=== PATIENT | female | born 1970 | race Caucasian/White ===

== ENCOUNTER → 2016-05-17 | Outpatient (CLI) | payer BC, OTHER ==
--- NOTE | 2016-05-17 16:19 | US ---
ULTRASOUND EXAMINATION OF the left lower extremity WITH DOPPLER HISTORY: Pain FINDINGS: Examination of the left leg was performed from the groin to the calf region. All visualized segment s including common femoral, proximal greater saphenous, superficial femoral, popliteal and calf vein s appear patent with good compressibility and augmentation. There is no evidence of deep vein throm bosis. IMPRESSION: No evidence of a DVT.
== END ==
LOC: MW.US 15:18
PROVIDERS: ATTEND Family Medicine
DX: M79.605 Pain in left leg (principal); M79.89 Other specified soft tissue disorders
CPT/HCPCS: 93971-26-LT; 93971-LT

== ENCOUNTER → 2016-06-08 | Outpatient (CLI) | payer BC, OTHER | END | disposition home or self-care (01) | LOC: MW.LAB 11:49 | PROVIDERS: ATTEND Internal Medicine | DX: R19.7 Diarrhea, unspecified (principal) | CPT/HCPCS: 82656; 83630; 87046; 87324; 87328; 87329; 87899; 89125 ==

== ENCOUNTER 2017-05-26 16:12 | Inpatient (IN) | payer BC, OTHER ==
--- NOTE | 2017-05-26 17:09 | EDM.PDOC ---
ED HPI GENERAL MEDICAL PROBLEM - General Chief Complaint: Gastrointestinal Problem Stated Complaint: INTERNAL BLEEDING Time Seen by Provider: 05/26/17 16:50 Source of Information: Reports: Patient, Family History Limitations: Reports: No Limitations - History of Present Illness INITIAL COMMENTS - FREE TEXT/NARRATIVE: HISTORY AND PHYSICAL: History of present illness: [Comes to the emergency room from [facility] in [place]. She was referred to the emergency room for complaints of dark black tarry stools and dark urine] and not feeling well for the past week. She developed low back pain yesterday, but has had pain throughout her abdomen for the past 1 week. Has had decreased appetite and weight loss over the past couple of months. No overt fever and chills but she has had alternating feelings of being warm and chills. No shortness of breath or difficulty breathing. Occasionally has a poking sensation in her mid chest. This resolves with time and massage. No runny nose earaches or sore throat. Had some nausea but no vomiting. No constipation or diarrhea. Stools have been green or black and tarry for the past several days. Quit smoking 1 week ago. Drinks 300 mL's of vodka nightly x 10 years. Cholecystectomy and EGD in 2015. 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 Indicated that he would like to see her back every 6 months to follow-up on fatty liver disease. Review of systems: As per history of present illness and below otherwise all systems reviewed and negative. Past medical history: As per history of present illness and as reviewed below otherwise noncontributory. Surgical history: As per history of present illness and as reviewed below otherwise noncontributory. Social history: No reported history of drug or alcohol abuse. Family history: As per history of present illness and as reviewed below otherwise noncontributory. Physical exam: General: Well developed female in no acute distress. Skin: Warm dry pale. HEENT: Atraumatic, normocephalic. Conjunctiva and oral mucous membranes are pale , but moist. Neck is supple, no lymphadenopathy. Lungs: Clear to auscultation, breath sounds equal bilaterally. Heart: S1S2, regular rate and rhythm. Abdomen: Bowel sounds are normoactive throughout. Abdomen is soft and somewhat rotund. She is tender over RUQ and suprapubic areas. Hepatomegaly appreciated. No CVAT. Pelvis: Stable nontender. Genitourinary: Deferred. Rectal: Deferred. Extremities: Atraumatic, no swelling or cyanosis to feet or lower legs. Neurovascular unremarkable. Neuro: Awake, alert, oriented. Motor and sensory unremarkable throughout. Exam nonfocal. Diagnostics: [CBC, CMP, UA w/ micro, amylase, lipase, abdominal ultrasound, EKG, ETOH, magnesium] Therapeutics: [1 liter LR, potassium chloride 40 mEq IV, Protonix 80mg IV, Levaquin 500mg IV] Impression: [GI bleed UTI Hypokalemia hyperbilirubinemia elevated LFTs fatty liver disease] Plan: [EKG shows normal sinus rhythm with a rate of 98. Hemoglobin 9.8. Potassium 2.9. UA is positive nitrites, + WBC's and urobilinogen >8. Elevated LFTs and bilirubin Abdominal U/S shows hepatomegaly with diffuse fatty liver. Case is discussed w/ Dr. Mendoza who agrees to accept patient for further workup and treatment. Protonix, Levaquin and KCl are started in the ER prior to transfer to the floor. ] Definitive disposition and diagnosis as appropriate pending reevaluation and review of above. Abdominal Pain Score (Numeric/FACES): 9 - Related Data Allergies Allergy/AdvReac Type Severity Reaction Status Date / Time No Known Allergies Allergy Verified 11/12/14 08:50 Home Meds: Home Meds Lansoprazole [Prevacid] 30 mg PO DAILY 06/10/14 [History] Past Medical History Other Respiratory History: Reports 30 yr history of smoking, current use 3 cigarettes per day Other Gastrointestinal History: Abdominal pain, Heartburn/GERD - Past Surgical History Other Musculoskeletal Surgeries/Procedures:: Bunionectomy Left with screws Social & Family History - Family History Family Medical History: Noncontributory - Tobacco Use Smoking Status *Q: Current Every Day Smoker Years of Tobacco use: 30 Packs/Tins Daily: 0.1 Second Hand Smoke Exposure: No - Caffeine Use Caffeine Use: Reports: None - Alcohol Use Days Per Week of Alcohol Use: 2 Number of Drinks Per Day: 3 Total Drinks Per Week: 6 - Recreational Drug Use Recreational Drug Use: No Drug Use in Last 12 Months: No ED ROS GENERAL - Review of Systems Review Of Systems: ROS reveals no pertinent complaints other than HPI. ED EXAM, GI/ABD - Physical Exam Exam: See Below Course - Vital Signs Last Recorded V/S: Last Vital Signs Temp 98.3 F 05/26/17 21:30 Pulse 93 05/26/17 21:30 Resp 16 05/26/17 21:30 BP 111/67 05/26/17 21:30 Pulse Ox 97 05/26/17 21:30 - Orders/Labs/Meds Orders: Active Orders 24 hr Category Date Time Status EKG Documentation Completion [RC] STAT Care 05/26/17 18:08 Active Abdomen Ltd [US] Stat Exams 05/26/17 18:06 Taken UA W/MICROSCOPIC [URIN] Stat Lab 05/26/17 17:30 Ordered Sodium Chloride 0.9% with KCl [Normal Saline with 40 Med 05/26/17 20:30 Active mEq KCl] 1,000 ml IV ASDIRECTED Medication Orders Potassium Chloride/Sodium Chloride (Normal Saline With 40 Meq Kcl) 1,000 mls @ 250 mls/hr IV ASDIRECTED SHAKIRA Labs: Laboratory Tests 05/26/17 05/26/17 05/26/17 Range/Units 17:25 17:25 17:25 WBC 10.27 (4.0-11.0) K/uL RBC 3.20 L (4.30-5.90) M/uL Hgb 9.8 L (12.0-16.0) g/dL Hct 30.1 L (36.0-46.0) % MCV 94.1 (80.0-98.0) fL MCH 30.6 (27.0-32.0) pg MCHC 32.6 (31.0-37.0) g/dL RDW Std Deviation 58.2 (28.0-62.0) fl RDW Coeff of [place] 17 H (11.0-15.0) % Plt Count 245 (150-400) K/uL MPV 10.30 (7.40-12.00) fL Neut % (Auto) 74.2 (48.0-80.0) % Lymph % (Auto) 18.6 (16.0-40.0) % [place] % (Auto) 6.0 (0.0-15.0) % Eos % (Auto) 0.6 (0.0-7.0) % Baso % (Auto) 0.6 (0.0-1.5) % Neut # (Auto) 7.6 H (1.4-5.7) K/uL Lymph # (Auto) 1.9 (0.6-2.4) K/uL [place] # (Auto) 0.6 (0.0-0.8) K/uL Eos # (Auto) 0.1 (0.0-0.7) K/uL Baso # (Auto) 0.1 (0.0-0.1) K/uL Nucleated RBC % 0.0 /100WBC Nucleated RBCs # 0 K/uL INR 1.42 Sodium 135 L (136-145) mmol/L Potassium 2.9 L (3.5-5.1) mmol/L Chloride 95 L (98-107) mmol/L Carbon Dioxide 27.6 (21.0-32.0) mmol/L BUN 8 (7.0-18.0) mg/dL Creatinine 0.6 (0.6-1.0) mg/dL Est Cr Clr Drug Dosing 97.95 mL/min Estimated GFR (MDRD) > 60.0 ml/min Glucose 90 (74-106) mg/dL Calcium 8.4 L (8.5-10.1) mg/dL Magnesium (1.5-2.0) mg/dL Total Bilirubin 4.9 H (0.2-1.0) mg/dL AST 225 H (15-37) IU/L ALT 35 (14-63) IU/L Alkaline Phosphatase 355 H (46-116) U/L Total Protein 7.1 (6.4-8.2) g/dL Albumin 2.8 L (3.4-5.0) g/dL Globulin 4.3 H (2.0-3.5) g/dL Albumin/Globulin Ratio 0.7 L (1.3-2.8) Amylase 23 L (25-115) U/L Lipase 176 (73-393) U/L Urine Color Urine Appearance Urine pH (5.0-8.0) Ur Specific [place] (1.001-1.035) Urine Protein (NEGATIVE) mg/dL Urine Glucose (UA) (NEGATIVE) mg/dL Urine Ketones (NEGATIVE) mg/dL Urine Occult Blood (NEGATIVE) Urine Nitrite (NEGATIVE) Urine Bilirubin (NEGATIVE) Urine Ictotest Urine Urobilinogen (<2.0) EU/dL Ur Leukocyte Esterase (NEGATIVE) Urine RBC (0-2/HPF) Urine WBC (0-5/HPF) Ur Epithelial Cells (NONE-FEW) Urine Bacteria (NEGATIVE) Urine Mucus (NONE-MOD) Ethyl Alcohol mg/dL H. pylori IgG Antibody (NEG) 05/26/17 05/26/17 05/26/17 Range/Units 17:25 17:25 17:25 WBC (4.0-11.0) K/uL RBC (4.30-5.90) M/uL Hgb (12.0-16.0) g/dL Hct (36.0-46.0) % MCV (80.0-98.0) fL MCH (27.0-32.0) pg MCHC (31.0-37.0) g/dL RDW Std Deviation (28.0-62.0) fl RDW Coeff of [place] (11.0-15.0) % Plt Count (150-400) K/uL MPV (7.40-12.00) fL Neut % (Auto) (48.0-80.0) % Lymph % (Auto) (16.0-40.0) % [place] % (Auto) (0.0-15.0) % Eos % (Auto) (0.0-7.0) % Baso % (Auto) (0.0-1.5) % Neut # (Auto) (1.4-5.7) K/uL Lymph # (Auto) (0.6-2.4) K/uL [place] # (Auto) (0.0-0.8) K/uL Eos # (Auto) (0.0-0.7) K/uL Baso # (Auto) (0.0-0.1) K/uL Nucleated RBC % /100WBC Nucleated RBCs # K/uL INR Sodium (136-145) mmol/L Potassium (3.5-5.1) mmol/L Chloride (98-107) mmol/L Carbon Dioxide (21.0-32.0) mmol/L BUN (7.0-18.0) mg/dL Creatinine (0.6-1.0) mg/dL Est Cr Clr Drug Dosing mL/min Estimated GFR (MDRD) ml/min Glucose (74-106) mg/dL Calcium (8.5-10.1) mg/dL Magnesium 1.2 L (1.5-2.0) mg/dL Total Bilirubin (0.2-1.0) mg/dL AST (15-37) IU/L ALT (14-63) IU/L Alkaline Phosphatase (46-116) U/L Total Protein (6.4-8.2) g/dL Albumin (3.4-5.0) g/dL Globulin (2.0-3.5) g/dL Albumin/Globulin Ratio (1.3-2.8) Amylase (25-115) U/L Lipase (73-393) U/L Urine Color Urine Appearance Urine pH (5.0-8.0) Ur Specific [place] (1.001-1.035) Urine Protein (NEGATIVE) mg/dL Urine Glucose (UA) (NEGATIVE) mg/dL Urine Ketones (NEGATIVE) mg/dL Urine Occult Blood (NEGATIVE) Urine Nitrite (NEGATIVE) Urine Bilirubin (NEGATIVE) Urine Ictotest Urine Urobilinogen (<2.0) EU/dL Ur Leukocyte Esterase (NEGATIVE) Urine RBC (0-2/HPF) Urine WBC (0-5/HPF) Ur Epithelial Cells (NONE-FEW) Urine Bacteria (NEGATIVE) Urine Mucus (NONE-MOD) Ethyl Alcohol <3 mg/dL H. pylori IgG Antibody NEGATIVE (NEG) 05/26/17 Range/Units 17:30 WBC (4.0-11.0) K/uL RBC (4.30-5.90) M/uL Hgb (12.0-16.0) g/dL Hct (36.0-46.0) % MCV (80.0-98.0) fL MCH (27.0-32.0) pg MCHC (31.0-37.0) g/dL RDW Std Deviation (28.0-62.0) fl RDW Coeff of [place] (11.0-15.0) % Plt Count (150-400) K/uL MPV (7.40-12.00) fL Neut % (Auto) (48.0-80.0) % Lymph % (Auto) (16.0-40.0) % [place] % (Auto) (0.0-15.0) % Eos % (Auto) (0.0-7.0) % Baso % (Auto) (0.0-1.5) % Neut # (Auto) (1.4-5.7) K/uL Lymph # (Auto) (0.6-2.4) K/uL [place] # (Auto) (0.0-0.8) K/uL Eos # (Auto) (0.0-0.7) K/uL Baso # (Auto) (0.0-0.1) K/uL Nucleated RBC % /100WBC Nucleated RBCs # K/uL INR Sodium (136-145) mmol/L Potassium (3.5-5.1) mmol/L Chloride (98-107) mmol/L Carbon Dioxide (21.0-32.0) mmol/L BUN (7.0-18.0) mg/dL Creatinine (0.6-1.0) mg/dL Est Cr Clr Drug Dosing mL/min Estimated GFR (MDRD) ml/min Glucose (74-106) mg/dL Calcium (8.5-10.1) mg/dL Magnesium (1.5-2.0) mg/dL Total Bilirubin (0.2-1.0) mg/dL AST (15-37) IU/L ALT (14-63) IU/L Alkaline Phosphatase (46-116) U/L Total Protein (6.4-8.2) g/dL Albumin (3.4-5.0) g/dL Globulin (2.0-3.5) g/dL Albumin/Globulin Ratio (1.3-2.8) Amylase (25-115) U/L Lipase (73-393) U/L Urine Color ORANGE Urine Appearance CLEAR Urine pH 5.5 (5.0-8.0) Ur Specific [place] 1.025 (1.001-1.035) Urine Protein 30 (NEGATIVE) mg/dL Urine Glucose (UA) NEGATIVE (NEGATIVE) mg/dL Urine Ketones 40 H (NEGATIVE) mg/dL Urine Occult Blood LARGE H (NEGATIVE) Urine Nitrite POSITIVE H (NEGATIVE) Urine Bilirubin LARGE H (NEGATIVE) Urine Ictotest POSITIVE Urine Urobilinogen >=8.0 H (<2.0) EU/dL Ur Leukocyte Esterase SMALL (NEGATIVE) Urine RBC 3-6 (0-2/HPF) Urine WBC 6-8 (0-5/HPF) Ur Epithelial Cells MODERATE (NONE-FEW) Urine Bacteria 1+ H (NEGATIVE) Urine Mucus MODERATE (NONE-MOD) Ethyl Alcohol mg/dL H. pylori IgG Antibody (NEG) Meds: Medications Generic Name Dose Route Start Last Admin Trade Name Freq PRN Reason Stop Dose Admin Potassium Chloride/Sodium Chloride 1,000 mls @ 250 mls/hr 05/26/17 20:30 Normal Saline With 40 Meq Kcl IV ASDIRECTED SHAKIRA Discontinued Medications Generic Name Dose Route Start Last Admin Trade Name Freq PRN Reason Stop Dose Admin Lactated Ringer's 1,000 mls @ 999 mls/hr 05/26/17 18:07 05/26/17 18:50 Ringers, Lactated IV 05/26/17 19:07 999 mls/hr .BOLUS ONE Administration Levofloxacin/Dextrose 500 mg/ 100 mls @ 100 mls/hr 05/26/17 20:37 05/26/17 21 :26 Premix IV 05/26/17 21:36 100 mls/hr ONETIME ONE Administration Pantoprazole Sodium 80 mg 05/26/17 20:20 05/26/17 20:31 Protonix Iv IVPUSH 05/26/17 20:21 80 mg .BOLUS ONE Administration Potassium Chloride 80 meq 05/26/17 20:14 05/26/17 20:36 Klor-Con M20 PO 05/26/17 20:15 Not Given ONETIME ONE Departure - Departure Time of Disposition: 21:00 Disposition: Admitted As Inpatient 67 Condition: Fair Clinical Impression: GI bleeding, UTI (urinary tract infection), Hypokalemia - Discharge Information - My Orders Last 24 Hours: My Active Orders 05/26/17 17:30 UA W/MICROSCOPIC [URIN] Stat 05/26/17 18:06 Abdomen Ltd [US] Stat 05/26/17 18:08 EKG Documentation Completion [RC] STAT 05/26/17 20:30 Sodium Chloride 0.9% with KCl [Normal Saline with 40 mEq KCl] 1,000 ml IV ASDIRECTED - Assessment/Plan Last 24 Hours: My Active Orders 05/26/17 17:30 UA W/MICROSCOPIC [URIN] Stat 05/26/17 18:06 Abdomen Ltd [US] Stat 05/26/17 18:08 EKG Documentation Completion [RC] STAT 05/26/17 20:30 Sodium Chloride 0.9% with KCl [Normal Saline with 40 mEq KCl] 1,000 ml IV ASDIRECTED
[2017-05-26 17:54] LABS: CHLORIDE,CL 95 mmol/L (98-107); SODIUM,NA 135 mmol/L (136-145)
[2017-05-26] MEDS ORDERED: Lactated Ringers 1,000 ML IV ONE (18:07)
[2017-05-26] MEDS ORDERED: Potassium Chloride 20 MEQ Tab.ER PO ONE (20:14)
[2017-05-26] MEDS ORDERED: Pantoprazole 40 MG Vial IVPUSH ONE (20:20)
[2017-05-26] MEDS ORDERED: Sodium Chloride 0.9% with KCl 1,000 ML IV SCH ×2 (20:30→22:30)
[2017-05-26] MEDS ORDERED: Levofloxacin/Dextrose 5%-Water 500 MG in Premix Bag 1 BAG IV ONE (20:37)
[2017-05-26] MEDS ORDERED: Magnesium Sulfate/Water 2 GM in Premix Bag 1 BAG IV ONE (22:16)
[2017-05-26] MEDS ORDERED: Ondansetron 4 MG/2 ML SDV IVPUSH PRN (22:32)
[2017-05-26] MEDS ORDERED: LORazepam 2 MG/ML SDV IVPUSH PRN (22:33)
--- NOTE | 2017-05-26 22:37 | PCM.HP ---
H&P History of Present Illness - General Admit Problem/Dx: Admission Diagnosis/Problem Admission Diagnosis/Problem GI bleed not requiring more than 4 units of blood in 24 hours, ICU, or surgery - History of Present Illness Initial Comments - Free Text/Narative: 46 yo female with pmh of alcoholism and fatty liver disease who presents with one week history of epigastric abdominal pain, and three day history of dark tarry stools. PAtient denies any dizziness, shortness of breath, or fevers. Patient reports drinking 4 glasses of vodka a day. Patient reports nausea and vomiting but denies any hematemesis. 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: - Past Surgical History Other Musculoskeletal Surgeries/Procedures:: Bunionectomy Left with screws Social & Family History - Family History Family Medical History: Noncontributory - Tobacco Use Smoking Status *Q: Current Every Day Smoker Years of Tobacco use: 30 Packs/Tins Daily: 0.1 Used Tobacco, but Quit: No Second Hand Smoke Exposure: No - Caffeine Use Caffeine Use: Reports: None - Alcohol Use Days Per Week of Alcohol Use: 2 Number of Drinks Per Day: 3 Total Drinks Per Week: 6 Date of Last Drink: 05/25/17 Time of Last Drink: 20:30 - Recreational Drug Use Recreational Drug Use: No Drug Use in Last 12 Months: No H&P Review of Systems - Review of Systems: Review Of Systems: ROS reveals no pertinent complaints other than HPI. Exam - Exam Exam: See Below - Vital Signs Vital Signs: Last Vital Signs Temp 36.8 C 05/26/17 21:30 Pulse 93 05/26/17 21:30 Resp 16 05/26/17 21:30 BP 111/67 05/26/17 21:30 Pulse Ox 97 05/26/17 21:30 Weight: 53.025 kg - Exam General: Alert, Oriented HEENT: Mucosa Moist & [place] Neck: Supple Lungs: Clear to Auscultation, Normal Respiratory Effort Cardiovascular: Regular Rate, Regular Rhythm GI/Abdominal Exam: Normal Bowel Sounds, Soft, Non-Tender, No Distention Extremities: Non-Tender, No Pedal Edema Skin: Warm, Dry, Intact Neurological: Strength Equal Bilateral, Normal Speech, Normal Tone, Sensation Intact. No: Focal Deficit - Patient Data Lab Results Last 24 hrs: Laboratory Results - last 24 hr 05/26/17 05/26/17 05/26/17 Range/Units 17:25 17:25 17:25 WBC 10.27 (4.0-11.0) K/uL RBC 3.20 L (4.30-5.90) M/uL Hgb 9.8 L (12.0-16.0) g/dL Hct 30.1 L (36.0-46.0) % MCV 94.1 (80.0-98.0) fL MCH 30.6 (27.0-32.0) pg MCHC 32.6 (31.0-37.0) g/dL RDW Std Deviation 58.2 (28.0-62.0) fl RDW Coeff of [place] 17 H (11.0-15.0) % Plt Count 245 (150-400) K/uL MPV 10.30 (7.40-12.00) fL Neut % (Auto) 74.2 (48.0-80.0) % Lymph % (Auto) 18.6 (16.0-40.0) % [place] % (Auto) 6.0 (0.0-15.0) % Eos % (Auto) 0.6 (0.0-7.0) % Baso % (Auto) 0.6 (0.0-1.5) % Neut # (Auto) 7.6 H (1.4-5.7) K/uL Lymph # (Auto) 1.9 (0.6-2.4) K/uL [place] # (Auto) 0.6 (0.0-0.8) K/uL Eos # (Auto) 0.1 (0.0-0.7) K/uL Baso # (Auto) 0.1 (0.0-0.1) K/uL Nucleated RBC % 0.0 /100WBC Nucleated RBCs # 0 K/uL INR 1.42 Sodium 135 L (136-145) mmol/L Potassium 2.9 L (3.5-5.1) mmol/L Chloride 95 L (98-107) mmol/L Carbon Dioxide 27.6 (21.0-32.0) mmol/L BUN 8 (7.0-18.0) mg/dL Creatinine 0.6 (0.6-1.0) mg/dL Est Cr Clr Drug Dosing 97.95 mL/min Estimated GFR (MDRD) > 60.0 ml/min Glucose 90 (74-106) mg/dL Calcium 8.4 L (8.5-10.1) mg/dL Magnesium (1.5-2.0) mg/dL Total Bilirubin 4.9 H (0.2-1.0) mg/dL AST 225 H (15-37) IU/L ALT 35 (14-63) IU/L Alkaline Phosphatase 355 H (46-116) U/L Total Protein 7.1 (6.4-8.2) g/dL Albumin 2.8 L (3.4-5.0) g/dL Globulin 4.3 H (2.0-3.5) g/dL Albumin/Globulin Ratio 0.7 L (1.3-2.8) Amylase 23 L (25-115) U/L Lipase 176 (73-393) U/L Urine Color Urine Appearance Urine pH (5.0-8.0) Ur Specific [place] (1.001-1.035) Urine Protein (NEGATIVE) mg/dL Urine Glucose (UA) (NEGATIVE) mg/dL Urine Ketones (NEGATIVE) mg/dL Urine Occult Blood (NEGATIVE) Urine Nitrite (NEGATIVE) Urine Bilirubin (NEGATIVE) Urine Ictotest Urine Urobilinogen (<2.0) EU/dL Ur Leukocyte Esterase (NEGATIVE) Urine RBC (0-2/HPF) Urine WBC (0-5/HPF) Ur Epithelial Cells (NONE-FEW) Urine Bacteria (NEGATIVE) Urine Mucus (NONE-MOD) Ethyl Alcohol mg/dL H. pylori IgG Antibody (NEG) 05/26/17 05/26/17 05/26/17 Range/Units 17:25 17:25 17:25 WBC (4.0-11.0) K/uL RBC (4.30-5.90) M/uL Hgb (12.0-16.0) g/dL Hct (36.0-46.0) % MCV (80.0-98.0) fL MCH (27.0-32.0) pg MCHC (31.0-37.0) g/dL RDW Std Deviation (28.0-62.0) fl RDW Coeff of [place] (11.0-15.0) % Plt Count (150-400) K/uL MPV (7.40-12.00) fL Neut % (Auto) (48.0-80.0) % Lymph % (Auto) (16.0-40.0) % [place] % (Auto) (0.0-15.0) % Eos % (Auto) (0.0-7.0) % Baso % (Auto) (0.0-1.5) % Neut # (Auto) (1.4-5.7) K/uL Lymph # (Auto) (0.6-2.4) K/uL [place] # (Auto) (0.0-0.8) K/uL Eos # (Auto) (0.0-0.7) K/uL Baso # (Auto) (0.0-0.1) K/uL Nucleated RBC % /100WBC Nucleated RBCs # K/uL INR Sodium (136-145) mmol/L Potassium (3.5-5.1) mmol/L Chloride (98-107) mmol/L Carbon Dioxide (21.0-32.0) mmol/L BUN (7.0-18.0) mg/dL Creatinine (0.6-1.0) mg/dL Est Cr Clr Drug Dosing mL/min Estimated GFR (MDRD) ml/min Glucose (74-106) mg/dL Calcium (8.5-10.1) mg/dL Magnesium 1.2 L (1.5-2.0) mg/dL Total Bilirubin (0.2-1.0) mg/dL AST (15-37) IU/L ALT (14-63) IU/L Alkaline Phosphatase (46-116) U/L Total Protein (6.4-8.2) g/dL Albumin (3.4-5.0) g/dL Globulin (2.0-3.5) g/dL Albumin/Globulin Ratio (1.3-2.8) Amylase (25-115) U/L Lipase (73-393) U/L Urine Color Urine Appearance Urine pH (5.0-8.0) Ur Specific [place] (1.001-1.035) Urine Protein (NEGATIVE) mg/dL Urine Glucose (UA) (NEGATIVE) mg/dL Urine Ketones (NEGATIVE) mg/dL Urine Occult Blood (NEGATIVE) Urine Nitrite (NEGATIVE) Urine Bilirubin (NEGATIVE) Urine Ictotest Urine Urobilinogen (<2.0) EU/dL Ur Leukocyte Esterase (NEGATIVE) Urine RBC (0-2/HPF) Urine WBC (0-5/HPF) Ur Epithelial Cells (NONE-FEW) Urine Bacteria (NEGATIVE) Urine Mucus (NONE-MOD) Ethyl Alcohol <3 mg/dL H. pylori IgG Antibody NEGATIVE (NEG) 05/26/17 Range/Units 17:30 WBC (4.0-11.0) K/uL RBC (4.30-5.90) M/uL Hgb (12.0-16.0) g/dL Hct (36.0-46.0) % MCV (80.0-98.0) fL MCH (27.0-32.0) pg MCHC (31.0-37.0) g/dL RDW Std Deviation (28.0-62.0) fl RDW Coeff of [place] (11.0-15.0) % Plt Count (150-400) K/uL MPV (7.40-12.00) fL Neut % (Auto) (48.0-80.0) % Lymph % (Auto) (16.0-40.0) % [place] % (Auto) (0.0-15.0) % Eos % (Auto) (0.0-7.0) % Baso % (Auto) (0.0-1.5) % Neut # (Auto) (1.4-5.7) K/uL Lymph # (Auto) (0.6-2.4) K/uL [place] # (Auto) (0.0-0.8) K/uL Eos # (Auto) (0.0-0.7) K/uL Baso # (Auto) (0.0-0.1) K/uL Nucleated RBC % /100WBC Nucleated RBCs # K/uL INR Sodium (136-145) mmol/L Potassium (3.5-5.1) mmol/L Chloride (98-107) mmol/L Carbon Dioxide (21.0-32.0) mmol/L BUN (7.0-18.0) mg/dL Creatinine (0.6-1.0) mg/dL Est Cr Clr Drug Dosing mL/min Estimated GFR (MDRD) ml/min Glucose (74-106) mg/dL Calcium (8.5-10.1) mg/dL Magnesium (1.5-2.0) mg/dL Total Bilirubin (0.2-1.0) mg/dL AST (15-37) IU/L ALT (14-63) IU/L Alkaline Phosphatase (46-116) U/L Total Protein (6.4-8.2) g/dL Albumin (3.4-5.0) g/dL Globulin (2.0-3.5) g/dL Albumin/Globulin Ratio (1.3-2.8) Amylase (25-115) U/L Lipase (73-393) U/L Urine Color ORANGE Urine Appearance CLEAR Urine pH 5.5 (5.0-8.0) Ur Specific [place] 1.025 (1.001-1.035) Urine Protein 30 (NEGATIVE) mg/dL Urine Glucose (UA) NEGATIVE (NEGATIVE) mg/dL Urine Ketones 40 H (NEGATIVE) mg/dL Urine Occult Blood LARGE H (NEGATIVE) Urine Nitrite POSITIVE H (NEGATIVE) Urine Bilirubin LARGE H (NEGATIVE) Urine Ictotest POSITIVE Urine Urobilinogen >=8.0 H (<2.0) EU/dL Ur Leukocyte Esterase SMALL (NEGATIVE) Urine RBC 3-6 (0-2/HPF) Urine WBC 6-8 (0-5/HPF) Ur Epithelial Cells MODERATE (NONE-FEW) Urine Bacteria 1+ H (NEGATIVE) Urine Mucus MODERATE (NONE-MOD) Ethyl Alcohol mg/dL H. pylori IgG Antibody (NEG) Result Diagrams: 05/28/17 05:57 05/28/17 05:57 Problem List Initiated/Reviewed/Updated: Yes Orders Last 24hrs: Active Orders 24 hr Category Date Time Status Patient Status [ADT] Stat ADT 05/26/17 20:37 Active EKG Documentation Completion [RC] STAT Care 05/26/17 18:08 Active Oxygen Therapy [RC] PRN Care 05/26/17 22:32 Ordered VTE/DVT Education [RC] PER UNIT ROUTINE Care 05/26/17 22:32 Ordered Vital Signs [RC] Q4H Care 05/26/17 22:32 Ordered Nothing per Oral Now Diet [DIET] Diet 05/26/17 Breakfast Ordered Abdomen Ltd [US] Stat Exams 05/26/17 18:06 Taken CBC W/O DIFF,HEMOGRAM [HEME] AM Lab 05/27/17 05:11 Ordered CBC W/O DIFF,HEMOGRAM [HEME] AM Lab 05/28/17 05:11 Ordered CBC W/O DIFF,HEMOGRAM [HEME] AM Lab 05/29/17 05:11 Ordered COMPREHENSIVE METABOLIC PN,CMP [CHEM] AM Lab 05/27/17 05:11 Ordered COMPREHENSIVE METABOLIC PN,CMP [CHEM] AM Lab 05/28/17 05:11 Ordered COMPREHENSIVE METABOLIC PN,CMP [CHEM] AM Lab 05/29/17 05:11 Ordered INR,PT,PROTHROMBIN TIME [COAG] AM Lab 05/27/17 05:11 Ordered INR,PT,PROTHROMBIN TIME [COAG] AM Lab 05/28/17 05:11 Ordered INR,PT,PROTHROMBIN TIME [COAG] AM Lab 05/29/17 05:11 Ordered UA W/MICROSCOPIC [URIN] Stat Lab 05/26/17 17:30 Ordered Folic Acid Med 05/26/17 22:45 Ordered 1 mg SUBCUT DAILY LORazepam [Ativan] Med 05/26/17 22:33 Ordered See Protocol IVPUSH Q4H PRN Magnesium Sulfate/Water [Magnesium Sulfate 2 GM in Med 05/26/17 22:16 Ordered Water 50 ML] 2 gm Premix Bag 1 bag IV ONETIME Ondansetron [Zofran] Med 05/26/17 22:32 Ordered 4 mg IVPUSH Q4H PRN Sodium Chloride 0.9% with KCl 40 mEq @ Enter Rate (1000 Med 05/26/17 22:30 Ordered mL) Sodium Chloride 0.9% with KCl [Normal Saline with 40 mEq KCl] 1,000 ml IV ASDIRECTED Sodium Chloride 0.9% with KCl [Normal Saline with 40 Med 05/26/17 20:30 Active mEq KCl] 1,000 ml IV ASDIRECTED Thiamine [Vitamin B-1] Med 05/26/17 22:45 Ordered 100 mg IV DAILY Sequential Compression Device [OM.PC] Per Unit Routine Oth 05/26/17 22:33 Ordered Resuscitation Status Routine Resus Stat 05/26/17 22:32 Ordered Medication Orders Folic Acid (Folic Acid) 1 mg SUBCUT DAILY [facility], [facility] Potassium Chloride/Sodium Chloride (Normal Saline With 40 Meq Kcl) 1,000 mls @ 250 mls/hr IV ASDIRECTED SHAKIRA Magnesium Sulfate 2 gm/ Premix 50 mls @ 50 mls/hr IV ONETIME ONE Stop: 05/26/17 23:15 Potassium Chloride/Sodium Chloride (Normal Saline With 40 Meq Kcl) 1,000 mls @ 150 mls/hr IV ASDIRECTED SHAKIRA Stop: 05/27/17 05:09 Lorazepam (Ativan) 0 mg IVPUSH Q4H PRN; Protocol PRN Reason: Agitation Ondansetron HCl (Zofran) 4 mg IVPUSH Q4H PRN PRN Reason: Nausea Thiamine HCl (Vitamin B-1) 100 mg IV DAILY [facility] Assessment/Plan Comment:: 46 yo female admitted due to concerns of possible acute GI bleed, and alcohol abuse with withdrawal. Will place on protonix, trend Hgb and give Ativan per [facility] protocol.
[2017-05-26] MEDS: Folic Acid 50 MG/10 ML MDV SUBCUT SCH (22:45)
[2017-05-26] MEDS: Thiamine 200 MG/2 ML MDV IV SCH (22:49)
[2017-05-27 05:41] LABS: CHLORIDE,CL 101 mmol/L (98-107); SODIUM,NA 136 mmol/L (136-145)
[2017-05-27] MEDS: Pantoprazole 40 MG Vial IVPUSH SCH ×2 (08:16→20:24)
[2017-05-27] MEDS: Thiamine 200 MG/2 ML MDV IV SCH (08:16)
[2017-05-27] MEDS: Folic Acid 50 MG/10 ML MDV SUBCUT SCH (08:17)
[2017-05-27] MEDS: Lactated Ringers 1,000 ML IV SCH ×2 (11:59→20:27)
--- NOTE | 2017-05-27 14:21 | US ---
EXAM DATE: 05/26/17 PATIENT'S AGE: 46 Patient: GEORGINA JAIMES Facility: [place], [place] Site . Site : 1970 Study: US Abdomen Right RUQ-05/26/2017 8:06:48 PM Ordering Physician: Doctor Stanley Final Report: INDICATION: Right upper quadrant pain TECHNIQUE: Ultrasound abdomen limited. COMPARISON: None FINDINGS: Gallbladder: History of cholecystectomy Common bile duct: 5 mm. Liver: Hepatomegaly with diffuse fatty infiltration of the liver. Large echogenic focus right lobe of the liver may represent focal fatty infiltration versus mass. The kidney: 10.4 centimeters. No masses, hydronephrosis or calculi. Miscellaneous: Trace ascites. IMPRESSION: Hepatomegaly. Diffuse fatty infiltration of the liver. Focal patchy echogenic focus right lobe of the liver versus hepatic mass. CT scan may be helpful to better characterize on a nonemergent basis. History of cholecystectomy. Trace ascites. Dictated by Reggie Umana MD @ 05/26/2017 8:13:30 PM Dictated by: Reggie Umana MD @ 05/26/2017 20:13:57 (Electronic Signature) Report Signed by Proxy. EMILY
--- NOTE | 2017-05-27 14:22 | PCM.SN ---
- Free Text/Narrative Note: gib, will initiate gib protocol; 2 large bore iv access, strict in and out; h/h q 8; inh of 1.45, may consider ffp if clinically active bleeding; avoid lovenox or anticoagulation; may benefit from endoscopy; will follow with you; cx dictated [id number]
--- NOTE | 2017-05-27 15:10 | PCM.PN ---
- General Info Date of Service: 05/27/17 Subjective Update: Patient is stable, still having some mild abdominal pain but does not feel nauseous as she did previously. Patient is nothing by mouth. Vital signs are stable. - Patient Data Vitals - Most Recent: Last Vital Signs Temp 37.2 C 05/27/17 08:00 Pulse 94 05/27/17 08:00 Resp 16 05/27/17 08:00 BP 99/68 05/27/17 08:00 Pulse Ox 96 05/27/17 08:00 Weight - Most Recent: 53.025 kg I&O - Last 24 Hours: Intake & Output 05/27/17 05/27/17 05/27/17 06:59 14:59 22:59 Intake Total 2060 Output Total 300 Balance 1760 Lab Results Last 24 Hours: Laboratory Results - last 24 hr 05/26/17 05/26/17 05/26/17 Range/Units 17:25 17:25 17:25 WBC 10.27 (4.0-11.0) K/uL RBC 3.20 L (4.30-5.90) M/uL Hgb 9.8 L (12.0-16.0) g/dL Hct 30.1 L (36.0-46.0) % MCV 94.1 (80.0-98.0) fL MCH 30.6 (27.0-32.0) pg MCHC 32.6 (31.0-37.0) g/dL RDW Std Deviation 58.2 (28.0-62.0) fl RDW Coeff of [place] 17 H (11.0-15.0) % Plt Count 245 (150-400) K/uL MPV 10.30 (7.40-12.00) fL Neut % (Auto) 74.2 (48.0-80.0) % Lymph % (Auto) 18.6 (16.0-40.0) % [place] % (Auto) 6.0 (0.0-15.0) % Eos % (Auto) 0.6 (0.0-7.0) % Baso % (Auto) 0.6 (0.0-1.5) % Neut # (Auto) 7.6 H (1.4-5.7) K/uL Lymph # (Auto) 1.9 (0.6-2.4) K/uL [place] # (Auto) 0.6 (0.0-0.8) K/uL Eos # (Auto) 0.1 (0.0-0.7) K/uL Baso # (Auto) 0.1 (0.0-0.1) K/uL Nucleated RBC % 0.0 /100WBC Nucleated RBCs # 0 K/uL INR 1.42 Sodium 135 L (136-145) mmol/L Potassium 2.9 L (3.5-5.1) mmol/L Chloride 95 L (98-107) mmol/L Carbon Dioxide 27.6 (21.0-32.0) mmol/L BUN 8 (7.0-18.0) mg/dL Creatinine 0.6 (0.6-1.0) mg/dL Est Cr Clr Drug Dosing 97.95 mL/min Estimated GFR (MDRD) > 60.0 ml/min Glucose 90 (74-106) mg/dL Calcium 8.4 L (8.5-10.1) mg/dL Phosphorus (2.6-4.7) mg/dL Magnesium (1.5-2.0) mg/dL Total Bilirubin 4.9 H (0.2-1.0) mg/dL AST 225 H (15-37) IU/L ALT 35 (14-63) IU/L Alkaline Phosphatase 355 H (46-116) U/L Total Protein 7.1 (6.4-8.2) g/dL Albumin 2.8 L (3.4-5.0) g/dL Globulin 4.3 H (2.0-3.5) g/dL Albumin/Globulin Ratio 0.7 L (1.3-2.8) Amylase 23 L (25-115) U/L Lipase 176 (73-393) U/L Urine Color Urine Appearance Urine pH (5.0-8.0) Ur Specific [place] (1.001-1.035) Urine Protein (NEGATIVE) mg/dL Urine Glucose (UA) (NEGATIVE) mg/dL Urine Ketones (NEGATIVE) mg/dL Urine Occult Blood (NEGATIVE) Urine Nitrite (NEGATIVE) Urine Bilirubin (NEGATIVE) Urine Ictotest Urine Urobilinogen (<2.0) EU/dL Ur Leukocyte Esterase (NEGATIVE) Urine RBC (0-2/HPF) Urine WBC (0-5/HPF) Ur Epithelial Cells (NONE-FEW) Urine Bacteria (NEGATIVE) Urine Mucus (NONE-MOD) Ethyl Alcohol mg/dL H. pylori IgG Antibody (NEG) 05/26/17 05/26/17 05/26/17 Range/Units 17:25 17:25 17:25 WBC (4.0-11.0) K/uL RBC (4.30-5.90) M/uL Hgb (12.0-16.0) g/dL Hct (36.0-46.0) % MCV (80.0-98.0) fL MCH (27.0-32.0) pg MCHC (31.0-37.0) g/dL RDW Std Deviation (28.0-62.0) fl RDW Coeff of [place] (11.0-15.0) % Plt Count (150-400) K/uL MPV (7.40-12.00) fL Neut % (Auto) (48.0-80.0) % Lymph % (Auto) (16.0-40.0) % [place] % (Auto) (0.0-15.0) % Eos % (Auto) (0.0-7.0) % Baso % (Auto) (0.0-1.5) % Neut # (Auto) (1.4-5.7) K/uL Lymph # (Auto) (0.6-2.4) K/uL [place] # (Auto) (0.0-0.8) K/uL Eos # (Auto) (0.0-0.7) K/uL Baso # (Auto) (0.0-0.1) K/uL Nucleated RBC % /100WBC Nucleated RBCs # K/uL INR Sodium (136-145) mmol/L Potassium (3.5-5.1) mmol/L Chloride (98-107) mmol/L Carbon Dioxide (21.0-32.0) mmol/L BUN (7.0-18.0) mg/dL Creatinine (0.6-1.0) mg/dL Est Cr Clr Drug Dosing mL/min Estimated GFR (MDRD) ml/min Glucose (74-106) mg/dL Calcium (8.5-10.1) mg/dL Phosphorus (2.6-4.7) mg/dL Magnesium 1.2 L (1.5-2.0) mg/dL Total Bilirubin (0.2-1.0) mg/dL AST (15-37) IU/L ALT (14-63) IU/L Alkaline Phosphatase (46-116) U/L Total Protein (6.4-8.2) g/dL Albumin (3.4-5.0) g/dL Globulin (2.0-3.5) g/dL Albumin/Globulin Ratio (1.3-2.8) Amylase (25-115) U/L Lipase (73-393) U/L Urine Color Urine Appearance Urine pH (5.0-8.0) Ur Specific [place] (1.001-1.035) Urine Protein (NEGATIVE) mg/dL Urine Glucose (UA) (NEGATIVE) mg/dL Urine Ketones (NEGATIVE) mg/dL Urine Occult Blood (NEGATIVE) Urine Nitrite (NEGATIVE) Urine Bilirubin (NEGATIVE) Urine Ictotest Urine Urobilinogen (<2.0) EU/dL Ur Leukocyte Esterase (NEGATIVE) Urine RBC (0-2/HPF) Urine WBC (0-5/HPF) Ur Epithelial Cells (NONE-FEW) Urine Bacteria (NEGATIVE) Urine Mucus (NONE-MOD) Ethyl Alcohol <3 mg/dL H. pylori IgG Antibody NEGATIVE (NEG) 05/26/17 05/27/17 05/27/17 Range/Units 17:30 04:40 04:40 WBC 7.54 (4.0-11.0) K/uL RBC 2.77 L (4.30-5.90) M/uL Hgb 8.6 L (12.0-16.0) g/dL Hct 26.2 L (36.0-46.0) % MCV 94.6 (80.0-98.0) fL MCH 31.0 (27.0-32.0) pg MCHC 32.8 (31.0-37.0) g/dL RDW Std Deviation 58.3 (28.0-62.0) fl RDW Coeff of [place] 17 H (11.0-15.0) % Plt Count 208 (150-400) K/uL MPV 10.60 (7.40-12.00) fL Neut % (Auto) (48.0-80.0) % Lymph % (Auto) (16.0-40.0) % [place] % (Auto) (0.0-15.0) % Eos % (Auto) (0.0-7.0) % Baso % (Auto) (0.0-1.5) % Neut # (Auto) (1.4-5.7) K/uL Lymph # (Auto) (0.6-2.4) K/uL [place] # (Auto) (0.0-0.8) K/uL Eos # (Auto) (0.0-0.7) K/uL Baso # (Auto) (0.0-0.1) K/uL Nucleated RBC % 0.0 /100WBC Nucleated RBCs # 0 K/uL INR 1.45 Sodium (136-145) mmol/L Potassium (3.5-5.1) mmol/L Chloride (98-107) mmol/L Carbon Dioxide (21.0-32.0) mmol/L BUN (7.0-18.0) mg/dL Creatinine (0.6-1.0) mg/dL Est Cr Clr Drug Dosing mL/min Estimated GFR (MDRD) ml/min Glucose (74-106) mg/dL Calcium (8.5-10.1) mg/dL Phosphorus (2.6-4.7) mg/dL Magnesium (1.5-2.0) mg/dL Total Bilirubin (0.2-1.0) mg/dL AST (15-37) IU/L ALT (14-63) IU/L Alkaline Phosphatase (46-116) U/L Total Protein (6.4-8.2) g/dL Albumin (3.4-5.0) g/dL Globulin (2.0-3.5) g/dL Albumin/Globulin Ratio (1.3-2.8) Amylase (25-115) U/L Lipase (73-393) U/L Urine Color ORANGE Urine Appearance CLEAR Urine pH 5.5 (5.0-8.0) Ur Specific [place] 1.025 (1.001-1.035) Urine Protein 30 (NEGATIVE) mg/dL Urine Glucose (UA) NEGATIVE (NEGATIVE) mg/dL Urine Ketones 40 H (NEGATIVE) mg/dL Urine Occult Blood LARGE H (NEGATIVE) Urine Nitrite POSITIVE H (NEGATIVE) Urine Bilirubin LARGE H (NEGATIVE) Urine Ictotest POSITIVE Urine Urobilinogen >=8.0 H (<2.0) EU/dL Ur Leukocyte Esterase SMALL (NEGATIVE) Urine RBC 3-6 (0-2/HPF) Urine WBC 6-8 (0-5/HPF) Ur Epithelial Cells MODERATE (NONE-FEW) Urine Bacteria 1+ H (NEGATIVE) Urine Mucus MODERATE (NONE-MOD) Ethyl Alcohol mg/dL H. pylori IgG Antibody (NEG) 05/27/17 05/27/17 05/27/17 Range/Units 04:40 04:40 10:53 WBC (4.0-11.0) K/uL RBC (4.30-5.90) M/uL Hgb (12.0-16.0) g/dL Hct (36.0-46.0) % MCV (80.0-98.0) fL MCH (27.0-32.0) pg MCHC (31.0-37.0) g/dL RDW Std Deviation (28.0-62.0) fl RDW Coeff of [place] (11.0-15.0) % Plt Count (150-400) K/uL MPV (7.40-12.00) fL Neut % (Auto) (48.0-80.0) % Lymph % (Auto) (16.0-40.0) % [place] % (Auto) (0.0-15.0) % Eos % (Auto) (0.0-7.0) % Baso % (Auto) (0.0-1.5) % Neut # (Auto) (1.4-5.7) K/uL Lymph # (Auto) (0.6-2.4) K/uL [place] # (Auto) (0.0-0.8) K/uL Eos # (Auto) (0.0-0.7) K/uL Baso # (Auto) (0.0-0.1) K/uL Nucleated RBC % /100WBC Nucleated RBCs # K/uL INR Sodium 136 (136-145) mmol/L Potassium 4.0 (3.5-5.1) mmol/L Chloride 101 (98-107) mmol/L Carbon Dioxide 22.9 (21.0-32.0) mmol/L BUN 5 L (7.0-18.0) mg/dL Creatinine 0.5 L (0.6-1.0) mg/dL Est Cr Clr Drug Dosing 117.54 mL/min Estimated GFR (MDRD) > 60.0 ml/min Glucose 58 L (74-106) mg/dL Calcium 7.5 L (8.5-10.1) mg/dL Phosphorus 3.8 (2.6-4.7) mg/dL Magnesium 1.6 (1.5-2.0) mg/dL Total Bilirubin 4.2 H (0.2-1.0) mg/dL AST 159 H (15-37) IU/L ALT 26 (14-63) IU/L Alkaline Phosphatase 264 H (46-116) U/L Total Protein 5.6 L (6.4-8.2) g/dL Albumin 2.1 L (3.4-5.0) g/dL Globulin 3.5 (2.0-3.5) g/dL Albumin/Globulin Ratio 0.6 L (1.3-2.8) Amylase (25-115) U/L Lipase (73-393) U/L Urine Color Urine Appearance Urine pH (5.0-8.0) Ur Specific [place] (1.001-1.035) Urine Protein (NEGATIVE) mg/dL Urine Glucose (UA) (NEGATIVE) mg/dL Urine Ketones (NEGATIVE) mg/dL Urine Occult Blood (NEGATIVE) Urine Nitrite (NEGATIVE) Urine Bilirubin (NEGATIVE) Urine Ictotest Urine Urobilinogen (<2.0) EU/dL Ur Leukocyte Esterase (NEGATIVE) Urine RBC (0-2/HPF) Urine WBC (0-5/HPF) Ur Epithelial Cells (NONE-FEW) Urine Bacteria (NEGATIVE) Urine Mucus (NONE-MOD) Ethyl Alcohol mg/dL H. pylori IgG Antibody (NEG) Med Orders - Current: Current Medications Folic Acid (Folic Acid) 1 mg SUBCUT DAILY [facility] Last Admin: 05/27/17 08:17 Dose: 1 mg Levofloxacin/Dextrose 500 mg/ (Premix) 100 mls @ 100 mls/hr IV Q24H [facility] Lactated Ringer's (Ringers, Lactated) 1,000 mls @ 125 mls/hr IV ASDIRECTED [facility] Last Admin: 05/27/17 11:59 Dose: 125 mls/hr Lorazepam (Ativan) 0 mg IVPUSH Q4H PRN; Protocol PRN Reason: Agitation Ondansetron HCl (Zofran) 4 mg IVPUSH Q4H PRN PRN Reason: Nausea Pantoprazole Sodium (Protonix Iv) 40 mg IVPUSH Q12H [facility] Last Admin: 05/27/17 08:16 Dose: 40 mg Thiamine HCl (Vitamin B-1) 100 mg IV DAILY [facility] Last Admin: 05/27/17 08:16 Dose: 100 mg Discontinued Medications Lactated Ringer's (Ringers, Lactated) 1,000 mls @ 999 mls/hr IV .BOLUS ONE Stop: 05/26/17 19:07 Last Admin: 05/26/17 18:50 Dose: 999 mls/hr Potassium Chloride/Sodium Chloride (Normal Saline With 40 Meq Kcl) 1,000 mls @ 250 mls/hr IV ASDIRECTED [facility] Last Infusion: 05/27/17 01:25 Dose: Infused Levofloxacin/Dextrose 500 mg/ (Premix) 100 mls @ 100 mls/hr IV ONETIME ONE Stop: 05/26/17 21:36 Last Infusion: 05/26/17 22:30 Dose: Infused Magnesium Sulfate 2 gm/ Premix 50 mls @ 50 mls/hr IV ONETIME ONE Stop: 05/26/17 23:15 Last Infusion: 05/26/17 23:55 Dose: Infused Potassium Chloride/Sodium Chloride (Normal Saline With 40 Meq Kcl) 1,000 mls @ 150 mls/hr IV ASDIRECTED [facility] Stop: 05/27/17 05:09 Last Admin: 05/27/17 01:24 Dose: 150 mls/hr Pantoprazole Sodium (Protonix Iv) 80 mg IVPUSH .BOLUS ONE Stop: 05/26/17 20:21 Last Admin: 05/26/17 20:31 Dose: 80 mg Potassium Chloride (Klor-Con M20) 80 meq PO ONETIME ONE Stop: 05/26/17 20:15 Last Admin: 05/26/17 20:36 Dose: Not Given - Exam General: Alert, Oriented, Cooperative, Mild Distress Lungs: Clear to Auscultation, Normal Respiratory Effort Cardiovascular: Regular Rate, Regular Rhythm GI/Abdominal Exam: Tender, Abnormal Bowel Sounds Extremities: Normal Inspection, Normal Range of Motion - Problem List Review Problem List Initiated/Reviewed/Updated: Yes - My Orders Last 24 Hours: My Active Orders 05/27/17 13:00 Notify Provider Consults [RC] ASDIRECTED Consult to Physician [CONS] Routine - Plan Plan:: This is a 46-year-old female with a history of gastroesophageal reflux disease, alcoholic fatty liver disease, history of chronic alcohol use and abuse presenting with dark tarry stools as well as bright red blood per rectum likely secondary to peptic ulcer disease, other etiologies that were considered include acute alcoholic hepatitis versus esophageal varices versus acute pancreatitis. #1. Upper GI bleed likely secondary to peptic ulcer disease alcohol-induced -patient's serology for H. pylori is negative, she denies any NSAID usage -Dr. Miguel Blunt surgery has been consulted for an assessment of her possible EGD for assessment of etiology. -Continue with the Protonix drip 80 twice a day IV, patient is nothing by mouth receiving IV fluids -Although the patient does have a significant alcoholic history likely not causing these current exacerbation due to no fevers, no jaundice on physical examination, AST is not significantly elevated although it is twice the limit of a healthy, total bilirubin is not significantly elevated and WBC is not significantly elevated, pancreatitis is also been ruled out as clinical signs and symptoms for acute pancreatitis are not present, amylase and lipase are within normal limits. #2. For acute alcohol intoxication/abuse -WA protocol in place, patient has Ativan for acute withdrawals -Patient receiving thiamine 100 mg daily along with folic acid 1 g daily, continue to monitor electrolytes including magnesium as it was low in the ER, assess phosphate level to see if that is low #3. Urinary tract infection seen secondary to urinary analysis -A urine culture has been obtained, patient is on Levaquin for UTI coverage up until speciation of microbiology has been done.
--- NOTE | 2017-05-27 17:55 | CONS ---
DATE OF CONSULTATION: 05/27/2017 DATE OF : 1970 PRIMARY CARE PHYSICIAN: None PCP Consult was called, and the patient was seen shortly after. CONCERNING QUESTION: Black tarry stool. HISTORY OF PRESENT ILLNESS: The patient is a 46-year-old lady, has a history of alcohol use, complained over 4 to 5 day history of black tarry stool and sometimes with bright red blood per rectum. Denies syncope. Denied chest pain. Denied short of breath. PAST MEDICAL HISTORY: Significant for no diabetes, IN, CVA, or hypertension. PAST SURGICAL HISTORY: Appendectomy, gallbladder, EGD, and tonsil. ALLERGIES: Please refer to nursing for details. MEDICATION: Please refer to nursing for details. FAMILY HISTORY: Noncontributory. SOCIAL HISTORY: Alcohol use. PHYSICAL EXAMINATION: GENERAL: A very pleasant young lady, in no acute distress. HEENT: Normocephalic and atraumatic. Sclerae anicteric. LUNGS: Clear to auscultation. HEART: Regular rate and rhythm. ABDOMEN: Soft and nondistended. No pulsating or tender midline abdominal structure. Well-healed laparoscopic surgical scar. LABORATORY DATA: Upon consultation, H and H is 8.6 and 26, and platelet is 208. INR is 1.45. Total bilirubin is 4.2, AST and ALT of 159 and 264. BUN is 5, creatinine is 0.5. IMPRESSION: Gastrointestinal bleeding with apparently some liver disease. The patient would benefit from monitoring urine output, strict in and out, weigh the patient every morning and H and H every 8 hours. Two large-bore IV access and may benefit from FFP transfusion if any signs of active bleeding. We will follow the patient with you. KOJO / MANJIT /[id number]
[2017-05-27] MEDS ORDERED: Levofloxacin/Dextrose 5%-Water 500 MG in Premix Bag 1 BAG IV SCH (23:30)
[2017-05-28] MEDS: Lactated Ringers 1,000 ML IV SCH ×2 (05:42→14:14)
[2017-05-28 06:55] LABS: CHLORIDE,CL 100 mmol/L (98-107); SODIUM,NA 135 mmol/L (136-145)
[2017-05-28] MEDS: Pantoprazole 40 MG Vial IVPUSH SCH ×2 (06:57→19:26)
--- NOTE | 2017-05-28 10:10 | PCM.SURGPN ---
- General Info Date of Service: 05/28/17 Functional Status: Reports: Pain Controlled - Review of Systems Gastrointestinal: Reports: No Symptoms (BM this AM, brown, no black tarry stool) - Patient Data Vitals - Most Recent: Last Vital Signs Temp 98.8 F 05/28/17 07:18 Pulse 97 05/28/17 07:18 Resp 16 05/28/17 07:18 BP 101/67 05/28/17 07:18 Pulse Ox 98 05/28/17 07:18 Weight - Most Recent: 116 lb 14.4 oz I&O - Last 24 Hours: Intake & Output 05/27/17 05/28/17 05/28/17 22:59 06:59 14:59 Intake Total 460 2970 Output Total 500 1100 Balance -40 1870 Lab Results Last 24 Hrs: Laboratory Results - last 24 hr 05/27/17 05/27/17 05/28/17 Range/Units 10:53 17:00 00:35 WBC 7.47 8.05 (4.0-11.0) K/uL RBC 2.82 L 2.67 L (4.30-5.90) M/uL Hgb 8.8 L 8.4 L (12.0-16.0) g/dL Hct 27.0 L 25.9 L (36.0-46.0) % MCV 95.7 97.0 (80.0-98.0) fL MCH 31.2 31.5 (27.0-32.0) pg MCHC 32.6 32.4 (31.0-37.0) g/dL RDW Std Deviation 58.1 56.1 (28.0-62.0) fl RDW Coeff of [place] 17 H 17 H (11.0-15.0) % Plt Count 192 185 (150-400) K/uL MPV 10.00 10.70 (7.40-12.00) fL Neut % (Auto) 67.3 (48.0-80.0) % Lymph % (Auto) 23.6 (16.0-40.0) % [place] % (Auto) 6.3 (0.0-15.0) % Eos % (Auto) 2.6 (0.0-7.0) % Baso % (Auto) 0.2 (0.0-1.5) % Neut # (Auto) 5.4 (1.4-5.7) K/uL Lymph # (Auto) 1.9 (0.6-2.4) K/uL [place] # (Auto) 0.5 (0.0-0.8) K/uL Eos # (Auto) 0.2 (0.0-0.7) K/uL Baso # (Auto) 0.0 (0.0-0.1) K/uL Nucleated RBC % 0.0 /100WBC Nucleated RBCs # 0 K/uL INR Sodium (136-145) mmol/L Potassium (3.5-5.1) mmol/L Chloride (98-107) mmol/L Carbon Dioxide (21.0-32.0) mmol/L BUN (7.0-18.0) mg/dL Creatinine (0.6-1.0) mg/dL Est Cr Clr Drug Dosing mL/min Estimated GFR (MDRD) ml/min Glucose (74-106) mg/dL Calcium (8.5-10.1) mg/dL Phosphorus 3.8 (2.6-4.7) mg/dL Total Bilirubin (0.2-1.0) mg/dL AST (15-37) IU/L ALT (14-63) IU/L Alkaline Phosphatase (46-116) U/L Total Protein (6.4-8.2) g/dL Albumin (3.4-5.0) g/dL Globulin (2.0-3.5) g/dL Albumin/Globulin Ratio (1.3-2.8) 05/28/17 05/28/17 05/28/17 Range/Units 05:57 05:57 05:57 WBC 7.77 (4.0-11.0) K/uL RBC 2.84 L (4.30-5.90) M/uL Hgb 8.8 L (12.0-16.0) g/dL Hct 27.0 L (36.0-46.0) % MCV 95.1 (80.0-98.0) fL MCH 31.0 (27.0-32.0) pg MCHC 32.6 (31.0-37.0) g/dL RDW Std Deviation 57.2 (28.0-62.0) fl RDW Coeff of [place] 17 H (11.0-15.0) % Plt Count 192 (150-400) K/uL MPV 10.30 (7.40-12.00) fL Neut % (Auto) (48.0-80.0) % Lymph % (Auto) (16.0-40.0) % [place] % (Auto) (0.0-15.0) % Eos % (Auto) (0.0-7.0) % Baso % (Auto) (0.0-1.5) % Neut # (Auto) (1.4-5.7) K/uL Lymph # (Auto) (0.6-2.4) K/uL [place] # (Auto) (0.0-0.8) K/uL Eos # (Auto) (0.0-0.7) K/uL Baso # (Auto) (0.0-0.1) K/uL Nucleated RBC % 0.0 /100WBC Nucleated RBCs # 0 K/uL INR 1.58 Sodium 135 L (136-145) mmol/L Potassium 4.0 (3.5-5.1) mmol/L Chloride 100 (98-107) mmol/L Carbon Dioxide 22.6 (21.0-32.0) mmol/L BUN 3 L (7.0-18.0) mg/dL Creatinine 0.5 L (0.6-1.0) mg/dL Est Cr Clr Drug Dosing 117.54 mL/min Estimated GFR (MDRD) > 60.0 ml/min Glucose 60 L (74-106) mg/dL Calcium 7.9 L (8.5-10.1) mg/dL Phosphorus (2.6-4.7) mg/dL Total Bilirubin 4.7 H (0.2-1.0) mg/dL AST 160 H (15-37) IU/L ALT 23 (14-63) IU/L Alkaline Phosphatase 244 H (46-116) U/L Total Protein 5.4 L (6.4-8.2) g/dL Albumin 2.0 L (3.4-5.0) g/dL Globulin 3.4 (2.0-3.5) g/dL Albumin/Globulin Ratio 0.6 L (1.3-2.8) Maninder Results Last 24 Hrs: Microbiology 05/26/17 17:30 Urine Culture - Final Urine, Bladder MIXED SAUNDRA >100,000 CFU/ML Med Orders - Current: Current Medications Folic Acid (Folic Acid) 1 mg SUBCUT DAILY [facility] Last Admin: 05/27/17 08:17 Dose: 1 mg Levofloxacin/Dextrose 500 mg/ (Premix) 100 mls @ 100 mls/hr IV Q24H [facility] Last Admin: 05/27/17 23:31 Dose: 100 mls/hr Lactated Ringer's (Ringers, Lactated) 1,000 mls @ 125 [facility] Last Admin: 05/28/17 05:42 Dose: 125 mls/hr Lorazepam (Ativan) 0 mg IVPUSH Q4H PRN; Protocol PRN Reason: Agitation Ondansetron HCl (Zofran) 4 mg IVPUSH Q4H PRN PRN Reason: Nausea Pantoprazole Sodium (Protonix Iv) 40 mg IVPUSH Q12H [facility] Last Admin: 05/28/17 06:57 Dose: 40 mg Thiamine HCl (Vitamin B-1) 100 mg IV DAILY [facility] Last Admin: 05/27/17 08:16 Dose: 100 mg Discontinued Medications Lactated Ringer's (Ringers, Lactated) 1,000 mls @ 999 mls/hr IV .BOLUS ONE Stop: 05/26/17 19:07 Last Admin: 05/26/17 18:50 Dose: 999 mls/hr Potassium Chloride/Sodium Chloride (Normal Saline With 40 Meq Kcl) 1,000 mls @ 250 mls/hr IV [facility] Last Infusion: 05/27/17 01:25 Dose: Infused Levofloxacin/Dextrose 500 mg/ (Premix) 100 mls @ 100 mls/hr IV ONETIME ONE Stop: 05/26/17 21:36 Last Infusion: 05/26/17 22:30 Dose: Infused Magnesium Sulfate 2 gm/ Premix 50 mls @ 50 mls/hr IV ONETIME ONE Stop: 05/26/17 23:15 Last Infusion: 05/26/17 23:55 Dose: Infused Potassium Chloride/Sodium Chloride (Normal Saline With 40 Meq Kcl) 1,000 mls @ 150 mls/hr IV [facility] Stop: 05/27/17 05:09 Last Admin: 05/27/17 01:24 Dose: 150 mls/hr Pantoprazole Sodium (Protonix Iv) 80 mg IVPUSH .BOLUS ONE Stop: 05/26/17 20:21 Last Admin: 05/26/17 20:31 Dose: 80 mg Potassium Chloride (Klor-Con M20) 80 meq PO ONETIME ONE Stop: 05/26/17 20:15 Last Admin: 05/26/17 20:36 Dose: Not Given - Exam General: Alert, Oriented GI/Abdominal Exam: Normal Bowel Sounds, Soft (tender at epigastrium, 3 on pain scale, much better than days ago) - Problem List Review Problem List Initiated/Reviewed/Updated: Yes - My Orders Last 24 Hours: Active Orders 24 hr Category Date Time Status Notify Provider Consults [RC] ASDIRECTED Care 05/27/17 13:00 Active Consult to Physician [CONS] Routine Cons 05/27/17 13:00 Active CBC W/O DIFF,HEMOGRAM [HEME] AM Lab 05/29/17 05:11 Ordered COMPREHENSIVE METABOLIC PN,CMP [CHEM] AM Lab 05/29/17 05:11 Ordered INR,PT,PROTHROMBIN TIME [COAG] AM Lab 05/29/17 05:11 Ordered Lactated Ringers [Ringers, Lactated] 1,000 ml Med 05/27/17 11:15 Active IV ASDIRECTED Levofloxacin/Dextrose 5%-Water [Levaquin in D5W 500 MG/ Med 05/27/17 23:30 Active 100 ML] 500 mg Premix Bag 1 bag IV Q24H Medication Orders Folic Acid (Folic Acid) 1 mg SUBCUT DAILY [facility] Last Admin: 05/27/17 08:17 Dose: 1 mg Admin: 05/26/17 22:45 Dose: 1 mg Levofloxacin/Dextrose 500 mg/ (Premix) 100 mls @ 100 mls/hr IV Q24H [facility] Last Admin: 05/27/17 23:31 Dose: 100 mls/hr Lactated Ringer's (Ringers, Lactated) 1,000 mls @ 125 mls/hr IV ASDIRECTED [facility] Last Admin: 05/28/17 05:42 Dose: 125 mls/hr Infusion: 05/28/17 04:27 Dose: 125 mls/hr Admin: 05/27/17 20:27 Dose: 125 mls/hr Infusion: 05/27/17 19:59 Dose: 125 mls/hr Admin: 05/27/17 11:59 Dose: 125 mls/hr Lorazepam (Ativan) 0 mg IVPUSH Q4H PRN; Protocol PRN Reason: Agitation Ondansetron HCl (Zofran) 4 mg IVPUSH Q4H PRN PRN Reason: Nausea Pantoprazole Sodium (Protonix Iv) 40 mg IVPUSH Q12H [facility] Last Admin: 05/28/17 06:57 Dose: 40 mg Admin: 05/27/17 20:24 Dose: 40 mg Admin: 05/27/17 08:16 Dose: 40 mg Thiamine HCl (Vitamin B-1) 100 mg IV DAILY [facility] Last Admin: 05/27/17 08:16 Dose: 100 mg Admin: 05/26/17 22:49 Dose: 100 mg - Assessment Assessment (Free Text/Narrative):: lab h/h stable, no change; would start po diet, clear liquid, no advance; still jaundice at 4.7, not previous lab for comparison; clinically much better, no signs of active bleeding - Plan Plan (Free Text/Narrative):: lab h/h stable, no change; would start po diet, clear liquid, no advance; still jaundice at 4.7, not previous lab for comparison; clinically much better, no signs of active bleeding
[2017-05-28] MEDS: Folic Acid 50 MG/10 ML MDV SUBCUT SCH (10:31)
[2017-05-28] MEDS: Thiamine 200 MG/2 ML MDV IV SCH (10:33)
--- NOTE | 2017-05-28 14:31 | PCM.PN ---
- Review of Systems Systems Review Comment:: reports some mild withdrawal symptoms, no bloody stools - Patient Data Vitals - Most Recent: Last Vital Signs Temp 37.6 C 05/28/17 11:00 Pulse 87 05/28/17 11:00 Resp 16 05/28/17 11:00 BP 105/74 05/28/17 11:00 Pulse Ox 97 05/28/17 11:00 Weight - Most Recent: 54.8 kg I&O - Last 24 Hours: Intake & Output 05/27/17 05/28/17 05/28/17 22:59 06:59 14:59 Intake Total 460 2970 Output Total 500 1100 Balance -40 1870 Lab Results Last 24 Hours: Laboratory Results - last 24 hr 05/27/17 05/28/17 05/28/17 Range/Units 17:00 00:35 05:57 WBC 7.47 8.05 7.77 (4.0-11.0) K/uL RBC 2.82 L 2.67 L 2.84 L (4.30-5.90) M/uL Hgb 8.8 L 8.4 L 8.8 L (12.0-16.0) g/dL Hct 27.0 L 25.9 L 27.0 L (36.0-46.0) % MCV 95.7 97.0 95.1 (80.0-98.0) fL MCH 31.2 31.5 31.0 (27.0-32.0) pg MCHC 32.6 32.4 32.6 (31.0-37.0) g/dL RDW Std Deviation 58.1 56.1 57.2 (28.0-62.0) fl RDW Coeff of Concetta 17 H 17 H 17 H (11.0-15.0) % Plt Count 192 185 192 (150-400) K/uL MPV 10.00 10.70 10.30 (7.40-12.00) fL Neut % (Auto) 67.3 (48.0-80.0) % Lymph % (Auto) 23.6 (16.0-40.0) % [place] % (Auto) 6.3 (0.0-15.0) % Eos % (Auto) 2.6 (0.0-7.0) % Baso % (Auto) 0.2 (0.0-1.5) % Neut # (Auto) 5.4 (1.4-5.7) K/uL Lymph # (Auto) 1.9 (0.6-2.4) K/uL [place] # (Auto) 0.5 (0.0-0.8) K/uL Eos # (Auto) 0.2 (0.0-0.7) K/uL Baso # (Auto) 0.0 (0.0-0.1) K/uL Nucleated RBC % 0.0 0.0 /100WBC Nucleated RBCs # 0 0 K/uL INR Sodium (136-145) mmol/L Potassium (3.5-5.1) mmol/L Chloride (98-107) mmol/L Carbon Dioxide (21.0-32.0) mmol/L BUN (7.0-18.0) mg/dL Creatinine (0.6-1.0) mg/dL Est Cr Clr Drug Dosing mL/min Estimated GFR (MDRD) ml/min Glucose (74-106) mg/dL Calcium (8.5-10.1) mg/dL Total Bilirubin (0.2-1.0) mg/dL AST (15-37) IU/L ALT (14-63) IU/L Alkaline Phosphatase (46-116) U/L Total Protein (6.4-8.2) g/dL Albumin (3.4-5.0) g/dL Globulin (2.0-3.5) g/dL Albumin/Globulin Ratio (1.3-2.8) 05/28/17 05/28/17 Range/Units 05:57 05:57 WBC (4.0-11.0) K/uL RBC (4.30-5.90) M/uL Hgb (12.0-16.0) g/dL Hct (36.0-46.0) % MCV (80.0-98.0) fL MCH (27.0-32.0) pg MCHC (31.0-37.0) g/dL RDW Std Deviation (28.0-62.0) fl RDW Coeff of Concetta (11.0-15.0) % Plt Count (150-400) K/uL MPV (7.40-12.00) fL Neut % (Auto) (48.0-80.0) % Lymph % (Auto) (16.0-40.0) % [place] % (Auto) (0.0-15.0) % Eos % (Auto) (0.0-7.0) % Baso % (Auto) (0.0-1.5) % Neut # (Auto) (1.4-5.7) K/uL Lymph # (Auto) (0.6-2.4) K/uL [place] # (Auto) (0.0-0.8) K/uL Eos # (Auto) (0.0-0.7) K/uL Baso # (Auto) (0.0-0.1) K/uL Nucleated RBC % /100WBC Nucleated RBCs # K/uL INR 1.58 Sodium 135 L (136-145) mmol/L Potassium 4.0 (3.5-5.1) mmol/L Chloride 100 (98-107) mmol/L Carbon Dioxide 22.6 (21.0-32.0) mmol/L BUN 3 L (7.0-18.0) mg/dL Creatinine 0.5 L (0.6-1.0) mg/dL Est Cr Clr Drug Dosing 117.54 mL/min Estimated GFR (MDRD) > 60.0 ml/min Glucose 60 L (74-106) mg/dL Calcium 7.9 L (8.5-10.1) mg/dL Total Bilirubin 4.7 H (0.2-1.0) mg/dL AST 160 H (15-37) IU/L ALT 23 (14-63) IU/L Alkaline Phosphatase 244 H (46-116) U/L Total Protein 5.4 L (6.4-8.2) g/dL Albumin 2.0 L (3.4-5.0) g/dL Globulin 3.4 (2.0-3.5) g/dL Albumin/Globulin Ratio 0.6 L (1.3-2.8) Maninder Results Last 24 Hours: Microbiology 05/26/17 17:30 Urine Culture - Final Urine, Bladder MIXED SAUNDRA >100,000 CFU/ML Med Orders - Current: Current Medications Ferrous Sulfate (Ferrous Sulfate) 325 mg PO BIDMEALS [facility] Folic Acid (Folic Acid) 1 mg SUBCUT DAILY [facility] Last Admin: 05/28/17 10:31 Dose: 1 mg Levofloxacin/Dextrose 500 mg/ (Premix) 100 mls @ 100 mls/hr IV Q24H [facility] Last Admin: 05/27/17 23:31 Dose: 100 mls/hr Lactated Ringer's (Ringers, Lactated) 1,000 mls @ 125 [facility]ls[facility] Last Admin: 05/28/17 14:14 Dose: 125 mls/hr Lorazepam (Ativan) 0 mg IVPUSH Q4H PRN; Protocol PRN Reason: Agitation Ondansetron HCl (Zofran) 4 mg IVPUSH Q4H PRN PRN Reason: Nausea Pantoprazole Sodium (Protonix Iv) 40 mg IVPUSH Q12H [facility] Last Admin: 05/28/17 06:57 Dose: 40 mg Thiamine HCl (Vitamin B-1) 100 mg IV DAILY [facility] Last Admin: 05/28/17 10:33 Dose: 100 mg Discontinued Medications Lactated Ringer's (Ringers, Lactated) 1,000 mls @ 999 mls/hr IV .BOLUS ONE Stop: 05/26/17 19:07 Last Admin: 05/26/17 18:50 Dose: 999 mls/hr Potassium Chloride/Sodium Chloride (Normal Saline With 40 Meq Kcl) 1,000 mls @ 250 mls/hr [facility] Last Infusion: 05/27/17 01:25 Dose: Infused Levofloxacin/Dextrose 500 mg/ (Premix) 100 mls @ 100 mls/hr IV ONETIME ONE Stop: 05/26/17 21:36 Last Infusion: 05/26/17 22:30 Dose: Infused Magnesium Sulfate 2 gm/ Premix 50 mls @ 50 mls/hr IV ONETIME ONE Stop: 05/26/17 23:15 Last Infusion: 05/26/17 23:55 Dose: Infused Potassium Chloride/Sodium Chloride (Normal Saline With 40 Meq Kcl) 1,000 mls @ 150 mls/hr IV ASDIRECTED [facility] Stop: 05/27/17 05:09 Last Admin: 05/27/17 01:24 Dose: 150 mls/hr Pantoprazole Sodium (Protonix Iv) 80 mg IVPUSH .BOLUS ONE Stop: 05/26/17 20:21 Last Admin: 05/26/17 20:31 Dose: 80 mg Potassium Chloride (Klor-Con M20) 80 meq PO ONETIME ONE Stop: 05/26/17 20:15 Last Admin: 05/26/17 20:36 Dose: Not Given - Exam General: Alert, Oriented Lungs: Clear to Auscultation, Normal Respiratory Effort Cardiovascular: Regular Rate, Regular Rhythm GI/Abdominal Exam: Normal Bowel Sounds, Soft, Non-Tender Extremities: Non-Tender, No Pedal Edema Skin: Warm, Dry, Intact - Problem List Review Problem List Initiated/Reviewed/Updated: Yes - My Orders Last 24 Hours: My Active Orders 05/27/17 23:30 Levofloxacin/Dextrose 5%-Water [Levaquin in D5W 500 MG/100 ML] 500 mg Premix Bag 1 bag IV Q24H 05/28/17 17:00 Ferrous Sulfate 325 mg PO BIDMEALS 05/28/17 Lunch Clear Liquid Diet [DIET] 05/29/17 05:11 CBC W/O DIFF,HEMOGRAM [HEME] AM COMPREHENSIVE METABOLIC PN,CMP [CHEM] AM INR,PT,PROTHROMBIN TIME [COAG] AM - Plan Plan:: This is a 46-year-old female with a history of gastroesophageal reflux disease, alcoholic fatty liver disease, history of chronic alcohol use and abuse presenting with dark tarry stools as well as bright red blood per rectum likely secondary to peptic ulcer disease, other etiologies that were considered include acute alcoholic hepatitis versus esophageal varices versus acute pancreatitis. Upper GI bleed. Dr. Mendez Has been consulted, Hgb stable, will continue protonix, will continue clear liquid diet, abdominal pain resolving. Fatty liver disease: continue to follow LFTs ETOH withdrawal: on CIWA protocol, patient does not feel ready for discharge UTI; on levaquin.
[2017-05-28] MEDS ORDERED: Levofloxacin 500 MG Tab PO SCH ×2 (15:00→15:15)
[2017-05-28] MEDS: Ferrous Sulfate 325 MG Tab PO SCH (16:29)
[2017-05-29 07:13] LABS: CHLORIDE,CL 102 mmol/L (98-107); SODIUM,NA 140 mmol/L (136-145)
[2017-05-29] MEDS: Pantoprazole 40 MG Vial IVPUSH SCH (08:02)
[2017-05-29] MEDS: Ferrous Sulfate 325 MG Tab PO SCH (08:04)
[2017-05-29] MEDS: Folic Acid 50 MG/10 ML MDV SUBCUT SCH (08:05)
[2017-05-29] MEDS: Thiamine 200 MG/2 ML MDV IV SCH (08:09)
[2017-05-29 08:55] VITALS: BP 98/66
--- NOTE | 2017-05-29 09:45 | PCM.SURGPN ---
- General Info Date of Service: 05/29/17 Functional Status: Reports: Pain Controlled - Review of Systems Gastrointestinal: Reports: No Symptoms (no black tarry stool on this admission, last BM yesterday and today was brown/green) - Patient Data Vitals - Most Recent: Last Vital Signs Temp 98.8 F 05/29/17 08:00 Pulse 91 05/29/17 08:00 Resp 16 05/29/17 08:00 BP 98/66 05/29/17 08:00 Pulse Ox 94 L 05/29/17 08:00 Weight - Most Recent: 116 lb 14.4 oz I&O - Last 24 Hours: Intake & Output 05/28/17 05/29/17 05/29/17 22:59 06:59 14:59 Intake Total 2193 700 Output Total 600 Balance 1593 700 Lab Results Last 24 Hrs: Laboratory Results - last 24 hr 05/29/17 05/29/17 05/29/17 Range/Units 06:31 06:31 06:31 WBC 8.43 (4.0-11.0) K/uL RBC 3.10 L (4.30-5.90) M/uL Hgb 9.7 L (12.0-16.0) g/dL Hct 29.8 L (36.0-46.0) % MCV 96.1 (80.0-98.0) fL MCH 31.3 (27.0-32.0) pg MCHC 32.6 (31.0-37.0) g/dL RDW Std Deviation 58.5 (28.0-62.0) fl RDW Coeff of Concetta 17 H (11.0-15.0) % Plt Count 230 (150-400) K/uL MPV 10.30 (7.40-12.00) fL Nucleated RBC % 0.0 /100WBC Nucleated RBCs # 0 K/uL INR 1.46 Sodium 140 (136-145) mmol/L Potassium 3.6 (3.5-5.1) mmol/L Chloride 102 (98-107) mmol/L Carbon Dioxide 27.5 (21.0-32.0) mmol/L BUN 2 L (7.0-18.0) mg/dL Creatinine 0.6 (0.6-1.0) mg/dL Est Cr Clr Drug Dosing 97.95 mL/min Estimated GFR (MDRD) > 60.0 ml/min Glucose 79 (74-106) mg/dL Calcium 8.3 L (8.5-10.1) mg/dL Total Bilirubin 4.3 H (0.2-1.0) mg/dL AST 133 H (15-37) IU/L ALT 26 (14-63) IU/L Alkaline Phosphatase 259 H (46-116) U/L Total Protein 6.1 L (6.4-8.2) g/dL Albumin 2.4 L (3.4-5.0) g/dL Globulin 3.7 H (2.0-3.5) g/dL Albumin/Globulin Ratio 0.7 L (1.3-2.8) Maninder Results Last 24 Hrs: Microbiology 05/26/17 17:30 Urine Culture - Final Urine, Bladder MIXED SAUNDRA >100,000 CFU/ML Med Orders - Current: Current Medications Ferrous Sulfate (Ferrous Sulfate) 325 mg PO BIDMEALS [facility] Last Admin: 05/29/17 08:04 Dose: 325 mg Folic Acid (Folic Acid) 1 mg SUBCUT DAILY [facility] [place] Last Admin: 05/29/17 08:05 Dose: 1 mg Levofloxacin (Levaquin) 500 mg PO Q24H [facility] [place] Last Admin: 05/28/17 15:30 Dose: 500 mg Lorazepam (Ativan) 0 mg IVPUSH Q4H PRN; Protocol PRN Reason: Agitation Last Admin: 05/29/17 00:17 Dose: 1 mg Ondansetron HCl (Zofran) 4 mg IVPUSH Q4H PRN PRN Reason: Nausea Pantoprazole Sodium (Protonix Iv) 40 mg IVPUSH Q12H [facility] [place] Last Admin: 05/29/17 08:02 Dose: 40 mg Thiamine HCl (Vitamin B-1) 100 mg IV DAILY [facility] [place] Last Admin: 05/29/17 08:09 Dose: 100 mg Discontinued Medications Lactated Ringer's (Ringers, Lactated) 1,000 mls @ 999 mls/hr IV .BOLUS ONE Stop: 05/26/17 19:07 Last Admin: 05/26/17 18:50 Dose: 999 mls/hr Potassium Chloride/Sodium Chloride (Normal Saline With 40 Meq Kcl) 1,000 mls @ 250 mls/hr IV ASDIRECTED [facility] [place] Last Infusion: 05/27/17 01:25 Dose: Infused Levofloxacin/Dextrose 500 mg/ (Premix) 100 mls @ 100 mls/hr IV ONETIME ONE Stop: 05/26/17 21:36 Last Infusion: 05/26/17 22:30 Dose: Infused Magnesium Sulfate 2 gm/ Premix 50 mls @ 50 mls/hr IV ONETIME ONE Stop: 05/26/17 23:15 Last Infusion: 05/26/17 23:55 Dose: Infused Potassium Chloride/Sodium Chloride (Normal Saline With 40 Meq Kcl) 1,000 mls @ 150 mls/hr IV ASDIRECTED [facility] [place] Stop: 05/27/17 05:09 Last Admin: 05/27/17 01:24 Dose: 150 mls/hr Levofloxacin/Dextrose 500 mg/ (Premix) 100 mls @ 100 mls/hr IV Q24H [facility] [place] Last Admin: 05/27/17 23:31 Dose: 100 mls/hr Lactated Ringer's (Ringers, Lactated) 1,000 mls @ 125 mls/hr IV ASDIRECTED [facility] Last Admin: 05/28/17 14:14 Dose: 125 mls/hr Levofloxacin (Levaquin) 750 mg PO Q24H [facility] [place] Last Admin: 05/28/17 15:19 Dose: Not Given Pantoprazole Sodium (Protonix Iv) 80 mg IVPUSH .BOLUS ONE Stop: 05/26/17 20:21 Last Admin: 05/26/17 20:31 Dose: 80 mg Potassium Chloride (Klor-Con M20) 80 meq PO ONETIME ONE Stop: 05/26/17 20:15 Last Admin: 05/26/17 20:36 Dose: Not Given - Exam GI/Abdominal Exam: Normal Bowel Sounds, Soft, Non-Tender - Problem List Review Problem List Initiated/Reviewed/Updated: Yes - My Orders Last 24 Hours: Active Orders 24 hr Category Date Time Status Clear Liquid Diet [DIET] Diet 05/28/17 Lunch Active Ferrous Sulfate Med 05/28/17 17:00 Active 325 mg PO BIDMEALS Levofloxacin [Levaquin] Med 05/28/17 15:15 Active 500 mg PO Q24H Medication Orders Ferrous Sulfate (Ferrous Sulfate) 325 mg PO BIDMEALS [facility] [place] Last Admin: 05/29/17 08:04 Dose: 325 mg Admin: 05/28/17 16:29 Dose: 325 mg Folic Acid (Folic Acid) 1 mg SUBCUT DAILY [facility] [place] Last Admin: 05/29/17 08:05 Dose: 1 mg Admin: 05/28/17 10:31 Dose: 1 mg Admin: 05/27/17 08:17 Dose: 1 mg Admin: 05/26/17 22:45 Dose: 1 mg Levofloxacin (Levaquin) 500 mg PO Q24H [facility] [place] Last Admin: 05/28/17 15:30 Dose: 500 mg Lorazepam (Ativan) 0 mg IVPUSH Q4H PRN; Protocol PRN Reason: Agitation Last Admin: 05/29/17 00:17 Dose: 1 mg Ondansetron HCl (Zofran) 4 mg IVPUSH Q4H PRN PRN Reason: Nausea Pantoprazole Sodium (Protonix Iv) 40 mg IVPUSH Q12H [facility] [place] Last Admin: 05/29/17 08:02 Dose: 40 mg Admin: 05/28/17 19:26 Dose: 40 mg Admin: 05/28/17 06:57 Dose: 40 mg Admin: 05/27/17 20:24 Dose: 40 mg Admin: 05/27/17 08:16 Dose: 40 mg Thiamine HCl (Vitamin B-1) 100 mg IV DAILY [facility] [place] Last Admin: 05/29/17 08:09 Dose: 100 mg Admin: 05/28/17 10:33 Dose: 100 mg Admin: 05/27/17 08:16 Dose: 100 mg Admin: 05/26/17 22:49 Dose: 100 mg - Assessment Assessment (Free Text/Narrative):: h/h stable X 48 hrs; no black tarry stool; tbili continue to stay hi, acute vs chronic; would benefit from liver specialist fu 1 - 2 wks; pt will fu w me in office for endoscope studies 1 - 2 wks; pt voiced understanding; no NSAID or ASA products; will sign off, recall if questions; tks for the cx and care of this pleasant pt - Plan Plan (Free Text/Narrative):: h/h stable X 48 hrs; no black tarry stool; tbili continue to stay hi, acute vs chronic; would benefit from liver specialist fu 1 - 2 wks; pt will fu w me in office for endoscope studies 1 - 2 wks; pt voiced understanding; no NSAID or ASA products; will sign off, recall if questions; tks for the cx and care of this pleasant pt
--- NOTE | 2017-05-29 10:00 | PCM.DCSUM1 ---
Discharge Summary - Discharge Data Discharge Date: 05/29/17 Discharge Disposition: Home, Self-Care 01 Condition: Good - Patient Summary/Data Consults: Consultations 05/27/17 13:00 Consult to Physician [CONS] Routine Hospital Course: 46 yo female with pmh of alcoholism and fatty liver disease who presents with one week history of epigastric abdominal pain, and three day history of dark tarry stools. Laboratory values were significant for a Hgb of 9.8, potasssium of 2.9, Total Bilirubin of 4.9, Ast of 225, ALT of 35 and Alk phos of 355. She was placed on IV protonix and IV fluids. She did have improvement of her abdominal pain, and no more bloody stools. Her Hgb and LFTs remained stable. Dr. Mendez was consulted and recommended outpatient endoscopy. Her potassium was replaced. She was monitored on CIWA protocal and required several doses of ativan. She was treated with levaquin for a UTI. Today on hospital day four patient is requesting discharge. She is to follow up with [facility] regarding her liver disease and Dr. Mendez regarding upper GI bleed. - Discharge Plan Prescriptions/Med Rec: Ferrous Sulfate 325 mg PO BIDMEALS #60 tablet Levofloxacin [Levaquin] 500 mg PO Q24H #4 tablet Pantoprazole Sodium [Protonix] 40 mg PO DAILY #30 tablet. Home Medications: Home Meds Ferrous Sulfate 325 mg PO BIDMEALS #60 tablet 05/29/17 [Rx] Levofloxacin [Levaquin] 500 mg PO Q24H #4 tablet 05/29/17 [Rx] Pantoprazole Sodium [Protonix] 40 mg PO DAILY #30 tablet. 05/29/17 [Rx] Patient Handouts: Hypokalemia, Polysaccharide-Iron Complex tablets or capsules , Urinary Tract Infection, Adult, [id number], Gastrointestinal Bleeding, Easy- to-Read, Pantoprazole tablets, Levofloxacin tablets Referrals: Miguel Mendez MD [Physician] - 06/01/17 9:15 am - Patient Data Vitals - Most Recent: Last Vital Signs Temp 37.1 C 05/29/17 08:00 Pulse 91 05/29/17 08:00 Resp 16 05/29/17 08:00 BP 98/66 05/29/17 08:00 Pulse Ox 94 L 05/29/17 08:00 Weight - Most Recent: 53.025 kg I&O - Last 24 hours: Intake & Output 05/28/17 05/29/17 05/29/17 22:59 06:59 14:59 Intake Total 2193 700 Output Total 600 Balance 1593 700 Lab Results - Last 24 hrs: Laboratory Results - last 24 hr 05/29/17 05/29/17 05/29/17 Range/Units 06:31 06:31 06:31 WBC 8.43 (4.0-11.0) K/uL RBC 3.10 L (4.30-5.90) M/uL Hgb 9.7 L (12.0-16.0) g/dL Hct 29.8 L (36.0-46.0) % MCV 96.1 (80.0-98.0) fL MCH 31.3 (27.0-32.0) pg MCHC 32.6 (31.0-37.0) g/dL RDW Std Deviation 58.5 (28.0-62.0) fl RDW Coeff of Concetta 17 H (11.0-15.0) % Plt Count 230 (150-400) K/uL MPV 10.30 (7.40-12.00) fL Nucleated RBC % 0.0 /100WBC Nucleated RBCs # 0 K/uL INR 1.46 Sodium 140 (136-145) mmol/L Potassium 3.6 (3.5-5.1) mmol/L Chloride 102 (98-107) mmol/L Carbon Dioxide 27.5 (21.0-32.0) mmol/L BUN 2 L (7.0-18.0) mg/dL Creatinine 0.6 (0.6-1.0) mg/dL Est Cr Clr Drug Dosing 97.95 mL/min Estimated GFR (MDRD) > 60.0 ml/min Glucose 79 (74-106) mg/dL Calcium 8.3 L (8.5-10.1) mg/dL Total Bilirubin 4.3 H (0.2-1.0) mg/dL AST 133 H (15-37) IU/L ALT 26 (14-63) IU/L Alkaline Phosphatase 259 H (46-116) U/L Total Protein 6.1 L (6.4-8.2) g/dL Albumin 2.4 L (3.4-5.0) g/dL Globulin 3.7 H (2.0-3.5) g/dL Albumin/Globulin Ratio 0.7 L (1.3-2.8) FRANCES Results - Last 24 hrs: Microbiology 05/26/17 17:30 Urine Culture - Final Urine, Bladder MIXED SAUNDRA >100,000 CFU/ML Med Orders - Current: Current Medications Ferrous Sulfate (Ferrous Sulfate) 325 mg PO BIDMEALS [facility] Last Admin: 05/29/17 08:04 Dose: 325 mg Folic Acid (Folic Acid) 1 mg SUBCUT DAILY [facility] Last Admin: 05/29/17 08:05 Dose: 1 mg Levofloxacin (Levaquin) 500 mg PO Q24H [facility] Last Admin: 05/28/17 15:30 Dose: 500 mg Lorazepam (Ativan) 0 mg IVPUSH Q4H PRN; Protocol PRN Reason: Agitation Last Admin: 05/29/17 00:17 Dose: 1 mg Ondansetron HCl (Zofran) 4 mg IVPUSH Q4H PRN PRN Reason: Nausea Pantoprazole Sodium (Protonix Iv) 40 mg IVPUSH Q12H [facility] Last Admin: 05/29/17 08:02 Dose: 40 mg Thiamine HCl (Vitamin B-1) 100 mg IV DAILY [facility] Last Admin: 05/29/17 08:09 Dose: 100 mg Discontinued Medications Lactated Ringer's (Ringers, Lactated) 1,000 mls @ 999 mls/hr IV .BOLUS ONE Stop: 05/26/17 19:07 Last Admin: 05/26/17 18:50 Dose: 999 mls/hr Potassium Chloride/Sodium Chloride (Normal Saline With 40 Meq Kcl) 1,000 mls @ 250 mls/hr IV ASDIRECTED [facility] Last Infusion: 05/27/17 01:25 Dose: Infused Levofloxacin/Dextrose 500 mg/ (Premix) 100 mls @ 100 mls/hr IV ONETIME ONE Stop: 05/26/17 21:36 Last Infusion: 05/26/17 22:30 Dose: Infused Magnesium Sulfate 2 gm/ Premix 50 mls @ 50 mls/hr IV ONETIME ONE Stop: 05/26/17 23:15 Last Infusion: 05/26/17 23:55 Dose: Infused Potassium Chloride/Sodium Chloride (Normal Saline With 40 Meq Kcl) 1,000 mls @ 150 mls/hr IV ASDIRECTED [facility] Stop: 05/27/17 05:09 Last Admin: 05/27/17 01:24 Dose: 150 mls/hr Levofloxacin/Dextrose 500 mg/ (Premix) 100 mls @ 100 mls/hr IV Q24H [facility] Last Admin: 05/27/17 23:31 Dose: 100 mls/hr Lactated Ringer's (Ringers, Lactated) 1,000 mls @ 125 mls/hr IV ASDIRECTED [facility] Last Admin: 05/28/17 14:14 Dose: 125 mls/hr Levofloxacin (Levaquin) 750 mg PO Q24H [facility] Last Admin: 05/28/17 15:19 Dose: Not Given Pantoprazole Sodium (Protonix Iv) 80 mg IVPUSH .BOLUS ONE Stop: 05/26/17 20:21 Last Admin: 05/26/17 20:31 Dose: 80 mg Potassium Chloride (Klor-Con M20) 80 meq PO ONETIME ONE Stop: 05/26/17 20:15 Last Admin: 05/26/17 20:36 Dose: Not Given
== END 2017-05-29 11:30 | disposition home or self-care (01) | DRG 253 ==
LOC: MW.ED 16:12 → MW.MS 20:37
PROVIDERS: ADMIT Internal Medicine; ATTEND Internal Medicine
DX: K92.2 Gastrointestinal hemorrhage, unspecified (principal); N39.0 Urinary tract infection, site not specified; K27.9 Peptic ulcer, site unspecified, unspecified as acute or chronic, without hemorrhage or perforation; E87.6 Hypokalemia; E80.6 Other disorders of bilirubin metabolism; R79.89 Other specified abnormal findings of blood chemistry; K76.0 Fatty (change of) liver, not elsewhere classified; K21.9 Gastro-esophageal reflux disease without esophagitis; F17.210 Nicotine dependence, cigarettes, uncomplicated; F10.239 Alcohol dependence with withdrawal, unspecified; Z79.899 Other long term (current) drug therapy
CPT/HCPCS: 36415; 76705; 76705-26; 80053; 81001; 82150; 83690; 83735; 84100; 85025; 85027; 85610; 86677; 87086; 93005; 96361; 96365; 96366; 96375; 99285; 99285-25; A9270-GY; C9113; G0480; J1956; J2060; J3411; J3475; J3480; J7120

== ENCOUNTER 2017-06-15 13:23 | Emergency (ER) | payer BC, OTHER ==
[2017-06-15] MEDS ORDERED: Sodium Chloride 0.9% 10 ML Syringe FLUSH PRN (13:51)
[2017-06-15] MEDS ORDERED: Sodium Chloride 0.9% 2.5 ML Syringe FLUSH PRN (13:51)
--- NOTE | 2017-06-15 13:54 | EDM.PDOC ---
ED HPI GENERAL MEDICAL PROBLEM - General Chief Complaint: General Stated Complaint: PER PE. LEFT SIDE IS FILL WITH FLUID Time Seen by Provider: 06/15/17 13:30 - History of Present Illness INITIAL COMMENTS - FREE TEXT/NARRATIVE: HISTORY AND PHYSICAL: History of present illness: The patient is a 46-year-old female with a history of alcohol use/abuse and ascites along with elevated liver function tests for which she was here in our hospital from May 26 to May 29. Patient tells me she is no longer drinking alcohol, but because of her elevated lab tests. She was sent to gastroenterology clinic in [place] was seen [facility]. The patient says she was seen there 2 days ago and had a paracentesis done where they drained fluid because she had tense ascites, and she also had more blood work done. She is scheduled to see them again in a week from today for an endoscopy and colonoscopy as well as a CT scan of the abdomen and pelvis with oral and IV contrast. The patient says that after the paracentesis. She was well but sore but came home and felt okay. She went to work yesterday and did some twisting and movements and thought she had some more discomfort and a little bit of swelling but did not call her GI physician. Today she thought the area where they placed the needle was more swollen and she contacted her provider in [place] and they were advised her to come here for evaluation of an abdominal wall hematoma. Patient denies any fever, chills, cough, chest pain or shortness of breath and has no flank pain. Patient says she's has upper abdominal pain over her liver and epigastrium which is not new or different from her prior pain. Patient's been eating and drinking and is not been having diarrhea and is in fact somewhat constipated. Review of systems: As per history of present illness and below otherwise all systems reviewed and negative. Past medical history: As per history of present illness and as reviewed below otherwise noncontributory. Surgical history: As per history of present illness and as reviewed below otherwise noncontributory. Social history: No reported history of drug or alcohol abuse. Family history: As per history of present illness and as reviewed below otherwise noncontributory. Physical exam: General: Well-developed, well-nourished female who is nontoxic and vital signs are noted by me Skin: Normal turgor no evidence of gross icteric or sallow color, is appreciated HEENT: Atraumatic, normocephalic, pupils reactive, negative for conjunctival pallor or scleral icterus, mucous membranes moist, throat clear, neck supple, nontender, trachea midline. Lungs: Clear to auscultation, breath sounds equal bilaterally, chest nontender. Heart: S1S2, regular in rhythm no overt murmurs Abdomen: Soft, nondistended, there is a positive fluid wave, but the ascites is not tense, the liver is grossly enlarged and minimally tender on deep palpation , there is no rebound or guarding and bowel sounds are slightly hypoactive Negative for masses Negative for costovertebral tenderness. At the site of needle insertion for the paracentesis. There is no erythema or drainage and on palpation there is no gross tenderness, induration or fluctuance. The area looks minimally swollen in a very diffuse pattern without demarcation. Pelvis: Stable nontender. Genitourinary: Deferred. Rectal: Deferred. Extremities: Atraumatic, negative for cords or calf pain. Neurovascular unremarkable. No pedal edema Neuro: Awake, alert, oriented. Cranial nerves II through XII unremarkable. Cerebellum unremarkable. Motor and sensory unremarkable throughout. Exam nonfocal. Diagnostics: CBC CMP INR UA CT scan of the abdomen and pelvis Therapeutics: Potassium orally I discussed this case with our radiologist, Dr. Hanson who recommends a CT scan with contrast as he will be able to get more definition of an area. If there is bleeding or hematoma, and if there is any active bleeding. Patient is aware of all testing results and I will give her a dose of potassium for the slightly low potassium. I've informed her that she needs to push more hydration as her bladder is decompressed I will cancel the UA. I've advised her for close follow-up with her doctors and to keep all of her appointments with GI. Impression: Abdominal wall pain/swelling. Status post paracentesis, rule out early cellulitis Definitive disposition and diagnosis as appropriate pending reevaluation and review of above. abdomen Pain Score (Numeric/FACES): 7 - Related Data Allergies Allergy/AdvReac Type Severity Reaction Status Date / Time ibuprofen Allergy Abdominal Verified 06/15/17 13:35 Pain Home Meds: Home Meds Ferrous Sulfate 325 mg PO BIDMEALS #60 tablet 05/29/17 [Rx] Pantoprazole Sodium [Protonix] 40 mg PO DAILY #30 tablet. 05/29/17 [Rx] Past Medical History Other Respiratory History: Reports 30 yr history of smoking, Gastrointestinal History: Reports: GERD, Other (See Below) Other Gastrointestinal History: Abdominal pain, Heartburn/GERD. 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: - Past Surgical History HEENT Surgical History: Reports: Tonsillectomy Other Musculoskeletal Surgeries/Procedures:: Bunionectomy Left with screws Social & Family History - Family History Family Medical History: Noncontributory - Tobacco Use Smoking Status *Q: Current Every Day Smoker Years of Tobacco use: 25 Packs/Tins Daily: 0.1 Used Tobacco, but Quit: No Second Hand Smoke Exposure: No - Caffeine Use Caffeine Use: Reports: Tea - Alcohol Use Days Per Week of Alcohol Use: 2 Number of Drinks Per Day: 3 Total Drinks Per Week: 6 - Recreational Drug Use Recreational Drug Use: No Drug Use in Last 12 Months: No ED ROS GENERAL - Review of Systems Review Of Systems: ROS reveals no pertinent complaints other than HPI. ED EXAM, GENERAL - Physical Exam Exam: See Below (See dictation) Course - Vital Signs Last Recorded V/S: Last Vital Signs Temp 37.2 C 06/15/17 16:06 Pulse 100 06/15/17 16:06 Resp 16 06/15/17 16:06 BP 106/71 06/15/17 16:06 Pulse Ox 98 06/15/17 16:06 - Orders/Labs/Meds Orders: Active Orders 24 hr Category Date Time Status Sodium Chloride 0.9% [Saline Flush] Med 06/15/17 13:51 Active 10 ml FLUSH ASDIRECTED PRN Sodium Chloride 0.9% [Saline Flush] Med 06/15/17 13:51 Active 2.5 ml FLUSH ASDIRECTED PRN Saline Lock Insert [OM.PC] Stat Oth 06/15/17 13:52 Ordered Medication Orders Sodium Chloride (Saline Flush) 10 ml FLUSH ASDIRECTED PRN PRN Reason: Keep Vein Open Sodium Chloride (Saline Flush) 2.5 ml FLUSH ASDIRECTED PRN PRN Reason: Keep Vein Open Labs: Laboratory Tests 06/15/17 06/15/17 06/15/17 Range/Units 13:55 13:55 13:55 WBC 9.89 (4.0-11.0) K/uL RBC 3.41 L (4.30-5.90) M/uL Hgb 10.6 L (12.0-16.0) g/dL Hct 32.2 L (36.0-46.0) % MCV 94.4 (80.0-98.0) fL MCH 31.1 (27.0-32.0) pg MCHC 32.9 (31.0-37.0) g/dL RDW Std Deviation 61.8 (28.0-62.0) fl RDW Coeff of Concetta 18 H (11.0-15.0) % Plt Count 339 (150-400) K/uL MPV 9.90 (7.40-12.00) fL Neut % (Auto) 72.5 (48.0-80.0) % Lymph % (Auto) 18.6 (16.0-40.0) % [place] % (Auto) 5.1 (0.0-15.0) % Eos % (Auto) 2.8 (0.0-7.0) % Baso % (Auto) 1.0 (0.0-1.5) % Neut # (Auto) 7.2 H (1.4-5.7) K/uL Lymph # (Auto) 1.8 (0.6-2.4) K/uL [place] # (Auto) 0.5 (0.0-0.8) K/uL Eos # (Auto) 0.3 (0.0-0.7) K/uL Baso # (Auto) 0.1 (0.0-0.1) K/uL Nucleated RBC % 0.0 /100WBC Nucleated RBCs # 0 K/uL INR 1.51 Sodium 138 (136-145) mmol/L Potassium 3.0 L (3.5-5.1) mmol/L Chloride 103 (98-107) mmol/L Carbon Dioxide 27.7 (21.0-32.0) mmol/L BUN 2 L (7.0-18.0) mg/dL Creatinine 0.6 (0.6-1.0) mg/dL Est Cr Clr Drug Dosing 97.95 mL/min Estimated GFR (MDRD) > 60.0 ml/min Glucose 109 H (74-106) mg/dL Calcium 8.4 L (8.5-10.1) mg/dL Total Bilirubin 3.9 H (0.2-1.0) mg/dL AST 182 H (15-37) IU/L ALT 25 (14-63) IU/L Alkaline Phosphatase 240 H (46-116) U/L Total Protein 6.8 (6.4-8.2) g/dL Albumin 2.0 L (3.4-5.0) g/dL Globulin 4.8 H (2.0-3.5) g/dL Albumin/Globulin Ratio 0.4 L (1.3-2.8) Meds: Medications Generic Name Dose Route Start Last Admin Trade Name Freq PRN Reason Stop Dose Admin Sodium Chloride 10 ml 06/15/17 13:51 Saline Flush FLUSH ASDIRECTED PRN Keep Vein Open Sodium Chloride 2.5 ml 06/15/17 13:51 Saline Flush FLUSH ASDIRECTED PRN Keep Vein Open Discontinued Medications Generic Name Dose Route Start Last Admin Trade Name Freq PRN Reason Stop Dose Admin Iopamidol 100 ml 06/15/17 15:46 06/15/17 15:47 Isovue Multipack-370 (76%) IVPUSH 06/15/17 15:47 100 ml ONETIME STA Administration Potassium Chloride 40 meq 06/15/17 16:05 Klor-Con M20 PO 06/15/17 16:06 ONETIME ONE Departure - Departure Time of Disposition: 16:29 Disposition: Home, Self-Care 01 Condition: Good Clinical Impression: Abdominal wall pain, Abdominal wall cellulitis Ascites Qualifiers: Ascites type: other type Qualified Code(s): R18.8 - Other ascites - Discharge Information Referrals: PCP,None [Primary Care Provider] - Forms: ED Department Discharge Additional Instructions: The following information is given to patients seen in the emergency department who are being discharged to home. This information is to outline your options for follow-up care. We provide all patients seen in our emergency department with a follow-up referral. The need for follow-up, as well as the timing and circumstances, are variable depending upon the specifics of your emergency department visit. If you don't have a primary care physician on staff, we will provide you with a referral. We always advise you to contact your personal physician following an emergency department visit to inform them of the circumstance of the visit and for follow-up with them and/or the need for any referrals to a consulting specialist. The emergency department will also refer you to a specialist when appropriate. This referral assures that you have the opportunity for followup care with a specialist. All of these measure are taken in an effort to provide you with optimal care, which includes your followup. Under all circumstances we always encourage you to contact your private physician who remains a resource for coordinating your care. When calling for followup care, please make the office aware that this follow-up is from your recent emergency room visit. If for any reason you are refused follow-up, please contact the [facility] emergency department at and ask to speak to the emergency department charge nurse. 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 Return to ER as needed and as discussed. Continue to hydrate and try to eat healthy meals. Try to start eating potassium rich foods such as whole gr and bananas. - My Orders Last 24 Hours: My Active Orders 06/15/17 13:51 Sodium Chloride 0.9% [Saline Flush] 10 ml FLUSH ASDIRECTED PRN Sodium Chloride 0.9% [Saline Flush] 2.5 ml FLUSH ASDIRECTED PRN 06/15/17 13:52 Saline Lock Insert [OM.PC] Stat - Assessment/Plan Last 24 Hours: My Active Orders 06/15/17 13:51 Sodium Chloride 0.9% [Saline Flush] 10 ml FLUSH ASDIRECTED PRN Sodium Chloride 0.9% [Saline Flush] 2.5 ml FLUSH ASDIRECTED PRN 06/15/17 13:52 Saline Lock Insert [OM.PC] Stat
[2017-06-15 14:45] LABS: CHLORIDE,CL 103 mmol/L (98-107); SODIUM,NA 138 mmol/L (136-145)
[2017-06-15] MEDS ORDERED: Iopamidol 755 MG/ML 500 ML Multipack Bottle IVPUSH STA (15:46)
--- NOTE | 2017-06-15 16:00 | CT ---
CT of the abdomen and pelvis with contrast. HISTORY: Pain TECHNIQUE: Axial CT images were obtained of the abdomen and pelvis following administration of 100 mL of Isovue-370 in the right antecubital fossa without complication. Coronal and sagittal reconstructi ons obtained. FINDINGS: Mild dependent atelectasis. No pleural effusion. The liver is heterogeneous and enlarged without a focal mass. Spleen is also mildly prominent in size . The adrenal glands and pancreas appear normal. Cholecystectomy clips are noted. No bulky retroperit aquino lymphadenopathy. The kidneys enhance and function symmetrically without evidence of obstructive uropathy. The large and small bowel are normal in caliber without evidence of obstruction. No focal pericolonic inflammation or stranding. The urinary bladder is decompressed. There is a small amount of abdominal and pelvic ascites. No pelvic lymphadenopathy. No free air. There is moderate subcutaneous edema along the left kam with mild skin thickening. Otherwise no sig nificant subcutaneous edema is identified. No organized fluid collection noted along the left flank. Endplate sclerotic changes noted at L5-S1. IMPRESSION: 1. Subcutaneous edema along the left flank with having skin thickening. There is no organized fluid c ollection to suggest a hematoma, developing cellulitis cannot be excluded. 2. Small remaining abdominal and pelvic ascites. 3. Hepatosplenomegaly.
[2017-06-15] MEDS ORDERED: Potassium Chloride 20 MEQ Tab.ER PO ONE (16:05)
[2017-06-15 16:50] VITALS: BP 111/74
== END 2017-06-15 16:45 | disposition home or self-care (01) ==
LOC: MW.ED 13:23
DX: L03.311 Cellulitis of abdominal wall (principal); R18.8 Other ascites; F17.210 Nicotine dependence, cigarettes, uncomplicated; Z88.6 Allergy status to analgesic agent; Z79.899 Other long term (current) drug therapy
CPT/HCPCS: 36415; 74177; 80053; 85025; 85610; 99284; A9270; Q9967; 99283

== ENCOUNTER 2017-07-23 15:11 | Inpatient (IN) | payer BC, OTHER ==
[2017-07-23] MEDS ORDERED: Sodium Chloride 0.9% 1,000 ML IV ONE (15:22)
--- NOTE | 2017-07-23 15:22 | EDM.PDOC ---
ED HPI GENERAL MEDICAL PROBLEM - General Chief Complaint: Abdominal Pain Stated Complaint: ABD PAIN Time Seen by Provider: 07/23/17 15:18 Source of Information: Reports: Patient History Limitations: Reports: No Limitations - History of Present Illness INITIAL COMMENTS - FREE TEXT/NARRATIVE: HISTORY AND PHYSICAL: History of present illness: Patient is a 46-year-old female who presents to the emergency room today with complaints of generalized abdominal pain, ascities, nausea and vomiting. She does have a history of ascites due to fatty liver, and receives care in [place] with Dr Nguyen and [facility]. She states she did have 2 L of fluid pulled off her abdomen approximately 3-4 weeks ago. She has received numerous CT scans and an MRI yesterday for a new pancreatic mass. She reports she did call the clinic yesterday; as she felt that her abdominal pain and swelling was increasing, but had not received a phone call back prior to the weekend. Reports that she has irregular bowel movements (bouts of diarrhea followed by constipation). Last BM yesterday. She denies any fever, chills, chest pain, shortness of breath or cough. Denies any dysuria. Patient has a past medical history of alcohol use/abuse, ascites, elevated LFT's , and GERD. Review of systems: As per history of present illness and below otherwise all systems reviewed and negative. Past medical history: As per history of present illness and as reviewed below otherwise noncontributory. Surgical history: As per history of present illness and as reviewed below otherwise noncontributory. Social history: No reported history of drug or alcohol abuse. Family history: As per history of present illness and as reviewed below otherwise noncontributory. Physical exam: General: Thin, jaundice appearing 46-year-old female. Alert and oriented. Nontoxic appearing and in no acute distress. HEENT: Atraumatic, normocephalic, pupils equal and reactive bilaterally, negative for conjunctival pallor, faint scleral icterus noted, mucous membranes moist, throat clear, neck supple, nontender, trachea midline. No drooling or trismus noted. No meningeal signs Lungs: Clear to auscultation, breath sounds equal bilaterally, chest nontender. Heart: S1S2, regular rate and rhythm without overt murmur Abdomen: Soft, distended, generalized tenderness throughout. Negative for masses. Negative for costovertebral tenderness. Pelvis: Stable nontender. Genitourinary: Deferred. Rectal: Deferred. Skin: Jaundice, Intact, warm, dry. No lesions or rashes noted. Extremities: Atraumatic, negative for cords or calf pain. Neurovascular unremarkable. Neuro: Awake, alert, oriented. Cranial nerves II through XII unremarkable. Cerebellum unremarkable. Motor and sensory unremarkable throughout. Exam nonfocal. Notes: Hgb 10.2 (she appears to run chronically low - according to previous labs), + H.yplori, Potassium 2.5 will give 40meq KDur, waiting on urine sample. He is agreeable to keeping this patient for observation to treat her hypokalemia and H pylori infection. Diagnostics: CBC, CMP, Amylase, Lipase, UA, Therapeutics: NS, Zofran, Morphine Impression: 1. Ascities 2. Hypokalemia 3. + H.Pylori Infection Plan: Observation admission Definitive disposition and diagnosis as appropriate pending reevaluation and review of above. Duration: Chronic, Getting Worse Location: Reports: Abdomen abdomen Pain Score (Numeric/FACES): 8 - Related Data Allergies Allergy/AdvReac Type Severity Reaction Status Date / Time No Known Allergies Allergy Verified 07/23/17 15:37 Home Meds: Home Meds Esomeprazole [NexIUM] 40 mg PO DAILY 07/23/17 [History] Past Medical History Other Respiratory History: Reports 30 yr history of smoking, Gastrointestinal History: Reports: GERD, Other (See Below) Other Gastrointestinal History: Abdominal pain, Heartburn/GERD. recent paracentesis [employer] History: Reports: - Past Surgical History HEENT Surgical History: Reports: Tonsillectomy Other Musculoskeletal Surgeries/Procedures:: Bunionectomy Left with screws Social & Family History - Family History Family Medical History: Noncontributory - Caffeine Use Caffeine Use: Reports: Tea ED ROS GENERAL - Review of Systems Review Of Systems: ROS reveals no pertinent complaints other than HPI. ED EXAM, GI/ABD - Physical Exam Exam: See Below (See dictation) Course - Vital Signs Last Recorded V/S: Last Vital Signs Temp 97.9 F 07/23/17 15:38 Pulse 123 H 07/23/17 15:38 Resp 18 07/23/17 15:38 BP 120/77 07/23/17 15:38 Pulse Ox 94 L 07/23/17 15:38 - Orders/Labs/Meds Orders: Active Orders 24 hr Category Date Time Status Admission Status [Patient Status] [ADT] Stat ADT 07/23/17 16:51 Ordered UA W/MICROSCOPIC [URIN] Stat Lab 07/23/17 15:22 Ordered Potassium Chloride [Klor-Con M20] Med 07/23/17 16:53 Stat 40 meq PO NOW STA Sodium Chloride 0.9% [Normal Saline] 1,000 ml Med 07/23/17 15:22 Active IV STAT Medication Orders Sodium Chloride (Normal Saline) 1,000 mls @ 125 mls/hr IV STAT ONE Stop: 07/23/17 23:21 Last Admin: 07/23/17 16:00 Dose: 125 mls/hr Labs: Laboratory Tests 07/23/17 07/23/17 07/23/17 Range/Units 16:00 16:00 16:00 WBC 8.32 (4.0-11.0) K/uL RBC 3.16 L (4.30-5.90) M/uL Hgb 10.2 L (12.0-16.0) g/dL Hct 31.4 L (36.0-46.0) % MCV 99.4 H (80.0-98.0) fL MCH 32.3 H (27.0-32.0) pg MCHC 32.5 (31.0-37.0) g/dL RDW Std Deviation 71.9 H (28.0-62.0) fl RDW Coeff of Concetta 20 H (11.0-15.0) % Plt Count 215 (150-400) K/uL MPV 9.40 (7.40-12.00) fL Neut % (Auto) 70.0 (48.0-80.0) % Lymph % (Auto) 20.6 (16.0-40.0) % [place] % (Auto) 7.0 (0.0-15.0) % Eos % (Auto) 1.8 (0.0-7.0) % Baso % (Auto) 0.6 (0.0-1.5) % Neut # (Auto) 5.8 H (1.4-5.7) K/uL Lymph # (Auto) 1.7 (0.6-2.4) K/uL [place] # (Auto) 0.6 (0.0-0.8) K/uL Eos # (Auto) 0.2 (0.0-0.7) K/uL Baso # (Auto) 0.1 (0.0-0.1) K/uL Nucleated RBC % 0.0 /100WBC Nucleated RBCs # 0 K/uL Sodium 137 (136-145) mmol/L Potassium 2.5 L (3.5-5.1) mmol/L Chloride 94 L (98-107) mmol/L Carbon Dioxide 33.1 H (21.0-32.0) mmol/L BUN 5 L (7.0-18.0) mg/dL Creatinine 0.7 (0.6-1.0) mg/dL Est Cr Clr Drug Dosing 83.95 mL/min Estimated GFR (MDRD) > 60.0 ml/min Glucose 111 H (74-106) mg/dL Calcium 8.5 (8.5-10.1) mg/dL Total Bilirubin 10.3 H (0.2-1.0) mg/dL AST 187 H (15-37) IU/L ALT 38 (14-63) IU/L Alkaline Phosphatase 322 H (46-116) U/L Total Protein 7.8 (6.4-8.2) g/dL Albumin 2.2 L (3.4-5.0) g/dL Globulin 5.6 H (2.0-3.5) g/dL Albumin/Globulin Ratio 0.4 L (1.3-2.8) Amylase 21 L (25-115) U/L Lipase 231 (73-393) U/L H. pylori IgG Antibody POSITIVE H (NEG) Meds: Medications Generic Name Dose Route Start Last Admin Trade Name Freq PRN Reason Stop Dose Admin Sodium Chloride 1,000 mls @ 125 mls/hr 07/23/17 15:22 07/23/17 16:00 Normal Saline IV 07/23/17 23:21 125 mls/hr STAT ONE Administration Discontinued Medications Generic Name Dose Route Start Last Admin Trade Name Freq PRN Reason Stop Dose Admin Morphine Sulfate 4 mg 07/23/17 15:48 07/23/17 16:25 Morphine IVPUSH 07/23/17 15:49 4 mg ONETIME ONE Administration Ondansetron HCl 4 mg 07/23/17 15:48 07/23/17 16:25 Zofran IVPUSH 07/23/17 15:49 4 mg ONETIME ONE Administration Departure - Departure Time of Disposition: 16:55 Disposition: Refer to Observation Clinical Impression: Hypokalemia, Helicobacter pylori (H. pylori) infection Ascites Qualifiers: Ascites type: other type Qualified Code(s): R18.8 - Other ascites - Discharge Information Referrals: PCP,None [Primary Care Provider] - Forms: ED Department Discharge - My Orders Last 24 Hours: My Active Orders 07/23/17 15:22 UA W/MICROSCOPIC [URIN] Stat Sodium Chloride 0.9% [Normal Saline] 1,000 ml IV STAT 07/23/17 16:51 Admission Status [Patient Status] [ADT] Stat 07/23/17 16:53 Potassium Chloride [Klor-Con M20] 40 meq PO NOW STA - Assessment/Plan Last 24 Hours: My Active Orders 07/23/17 15:22 UA W/MICROSCOPIC [URIN] Stat Sodium Chloride 0.9% [Normal Saline] 1,000 ml IV STAT 07/23/17 16:51 Admission Status [Patient Status] [ADT] Stat 07/23/17 16:53 Potassium Chloride [Klor-Con M20] 40 meq PO NOW STA
[2017-07-23] MEDS ORDERED: Morphine 4 MG/ML Syringe IVPUSH ONE (15:48)
[2017-07-23] MEDS ORDERED: Ondansetron 4 MG/2 ML SDV IVPUSH ONE (15:48)
[2017-07-23 16:29] LABS: CHLORIDE,CL 94 mmol/L (98-107); SODIUM,NA 137 mmol/L (136-145)
[2017-07-23] MEDS ORDERED: Potassium Chloride 20 MEQ Tab.ER PO STA (16:53)
[2017-07-23] MEDS ORDERED: Sodium Chloride 0.9% with KCl 1,000 ML IV ONE (18:48)
[2017-07-23] MEDS: Morphine 2 MG/ML Syringe IVPUSH PRN ×2 (19:34→22:40)
--- NOTE | 2017-07-23 22:43 | PCM.HP ---
H&P History of Present Illness - General Admit Problem/Dx: Admission Diagnosis/Problem Admission Diagnosis/Problem Hypokalemia - History of Present Illness Initial Comments - Free Text/Narative: 46 yo female with pmh of ETOH abuse who has been following GI clinic at [facility] for ascities and abdominal pain. Patient reports having a paracentesis here on June 22. Today she drove back from [place] after having three days of tests including MRI of abdomen for work up of a "pancreatic mass" She presented to the ED here in [place] due to abdominal pain and nausea. Her lab work up was significant for a bilirubin of 10.5 which is up from 4 in May, AST of 137, ALT of 38, Alk phos of 329 and potassium of 2.5. Patient reports cutting back from 200-300 mls of vodka a day two weeks ago and reports she has not had a drink for two days due to being sick. I called [facility] and spoke with her GI specialist Dr. Agudelo. The MRI of the abdomen reports hepatomegaly, hemagnioma of right liver lobe, no lesions noted in pancreatic head, no biliary ductal dilation noted. Dr. Agudelo suspects the increase in bilirbin is likely due to alcoholic hepatitis and holding the use of steroids until treatment of her UTI. abdomen Pain Score (Numeric/FACES): 6 - Related Data Allergies/Adverse Reactions: Allergies Allergy/AdvReac Type Severity Reaction Status Date / Time No Known Allergies Allergy Verified 07/23/17 15:37 Home Medications: Home Meds Esomeprazole [NexIUM] 40 mg PO DAILY 07/23/17 [History] Past Medical History Other Respiratory History: Reports 30 yr history of smoking, Gastrointestinal History: Reports: GERD, Other (See Below) Other Gastrointestinal History: Abdominal pain, Heartburn/GERD. recent paracentesis [employer] History: Reports: - Infectious Disease History Infectious Disease History: Reports: None - Past Surgical History HEENT Surgical History: Reports: Tonsillectomy Other Musculoskeletal Surgeries/Procedures:: Bunionectomy Left with screws Social & Family History - Family History Family Medical History: Noncontributory - Tobacco Use Smoking Status *Q: Former Smoker Years of Tobacco use: 30 Used Tobacco, but Quit: Yes Month/Year Tobacco Last Used: a month ago- Kim - Caffeine Use Caffeine Use: Reports: Coffee - Recreational Drug Use Recreational Drug Use: No H&P Review of Systems - Review of Systems: Review Of Systems: ROS reveals no pertinent complaints other than HPI. Exam - Exam Exam: See Below - Vital Signs Vital Signs: Last Vital Signs Temp 36.9 C 07/23/17 20:00 Pulse 116 H 07/23/17 20:00 Resp 16 07/23/17 20:00 BP 89/44 L 07/23/17 20:00 Pulse Ox 92 L 07/23/17 20:00 Weight: 50.7 kg - Exam General: Alert, Oriented, Cooperative HEENT: Mucosa Moist & [place] Lungs: Clear to Auscultation, Normal Respiratory Effort Cardiovascular: Regular Rate GI/Abdominal Exam: Soft, Non-Tender, Distended (ascities, not tense) Extremities: Non-Tender, No Pedal Edema Skin: Warm, Dry, Intact Neurological: No: Focal Deficit - Patient Data Lab Results Last 24 hrs: Laboratory Results - last 24 hr 07/23/17 07/23/17 07/23/17 Range/Units 16:00 16:00 16:00 WBC 8.32 (4.0-11.0) K/uL RBC 3.16 L (4.30-5.90) M/uL Hgb 10.2 L (12.0-16.0) g/dL Hct 31.4 L (36.0-46.0) % MCV 99.4 H (80.0-98.0) fL MCH 32.3 H (27.0-32.0) pg MCHC 32.5 (31.0-37.0) g/dL RDW Std Deviation 71.9 H (28.0-62.0) fl RDW Coeff of [place] 20 H (11.0-15.0) % Plt Count 215 (150-400) K/uL MPV 9.40 (7.40-12.00) fL Neut % (Auto) 70.0 (48.0-80.0) % Lymph % (Auto) 20.6 (16.0-40.0) % [place] % (Auto) 7.0 (0.0-15.0) % Eos % (Auto) 1.8 (0.0-7.0) % Baso % (Auto) 0.6 (0.0-1.5) % Neut # (Auto) 5.8 H (1.4-5.7) K/uL Lymph # (Auto) 1.7 (0.6-2.4) K/uL [place] # (Auto) 0.6 (0.0-0.8) K/uL Eos # (Auto) 0.2 (0.0-0.7) K/uL Baso # (Auto) 0.1 (0.0-0.1) K/uL Nucleated RBC % 0.0 /100WBC Nucleated RBCs # 0 K/uL Sodium 137 (136-145) mmol/L Potassium 2.5 L (3.5-5.1) mmol/L Chloride 94 L (98-107) mmol/L Carbon Dioxide 33.1 H (21.0-32.0) mmol/L BUN 5 L (7.0-18.0) mg/dL Creatinine 0.7 (0.6-1.0) mg/dL Est Cr Clr Drug Dosing 83.95 mL/min Estimated GFR (MDRD) > 60.0 ml/min Glucose 111 H (74-106) mg/dL Calcium 8.5 (8.5-10.1) mg/dL Magnesium (1.5-2.0) mg/dL Total Bilirubin 10.3 H (0.2-1.0) mg/dL AST 187 H (15-37) IU/L ALT 38 (14-63) IU/L Alkaline Phosphatase 322 H (46-116) U/L Total Protein 7.8 (6.4-8.2) g/dL Albumin 2.2 L (3.4-5.0) g/dL Globulin 5.6 H (2.0-3.5) g/dL Albumin/Globulin Ratio 0.4 L (1.3-2.8) Amylase 21 L (25-115) U/L Lipase 231 (73-393) U/L Urine Color Urine Appearance Urine pH (5.0-8.0) Ur Specific [place] (1.001-1.035) Urine Protein (NEGATIVE) mg/dL Urine Glucose (UA) (NEGATIVE) mg/dL Urine Ketones (NEGATIVE) mg/dL Urine Occult Blood (NEGATIVE) Urine Nitrite (NEGATIVE) Urine Bilirubin (NEGATIVE) Urine Ictotest Urine Urobilinogen (<2.0) EU/dL Ur Leukocyte Esterase (NEGATIVE) Urine RBC (0-2/HPF) Urine WBC (0-5/HPF) Ur Epithelial Cells (NONE-FEW) Amorphous Sediment (NEGATIVE) Urine Bacteria (NEGATIVE) H. pylori IgG Antibody POSITIVE H (NEG) 07/23/17 07/23/17 Range/Units 16:00 21:36 WBC (4.0-11.0) K/uL RBC (4.30-5.90) M/uL Hgb (12.0-16.0) g/dL Hct (36.0-46.0) % MCV (80.0-98.0) fL MCH (27.0-32.0) pg MCHC (31.0-37.0) g/dL RDW Std Deviation (28.0-62.0) fl RDW Coeff of [place] (11.0-15.0) % Plt Count (150-400) K/uL MPV (7.40-12.00) fL Neut % (Auto) (48.0-80.0) % Lymph % (Auto) (16.0-40.0) % [place] % (Auto) (0.0-15.0) % Eos % (Auto) (0.0-7.0) % Baso % (Auto) (0.0-1.5) % Neut # (Auto) (1.4-5.7) K/uL Lymph # (Auto) (0.6-2.4) K/uL [place] # (Auto) (0.0-0.8) K/uL Eos # (Auto) (0.0-0.7) K/uL Baso # (Auto) (0.0-0.1) K/uL Nucleated RBC % /100WBC Nucleated RBCs # K/uL Sodium (136-145) mmol/L Potassium (3.5-5.1) mmol/L Chloride (98-107) mmol/L Carbon Dioxide (21.0-32.0) mmol/L BUN (7.0-18.0) mg/dL Creatinine (0.6-1.0) mg/dL Est Cr Clr Drug Dosing mL/min Estimated GFR (MDRD) ml/min Glucose (74-106) mg/dL Calcium (8.5-10.1) mg/dL Magnesium 1.5 (1.5-2.0) mg/dL Total Bilirubin (0.2-1.0) mg/dL AST (15-37) IU/L ALT (14-63) IU/L Alkaline Phosphatase (46-116) U/L Total Protein (6.4-8.2) g/dL Albumin (3.4-5.0) g/dL Globulin (2.0-3.5) g/dL Albumin/Globulin Ratio (1.3-2.8) Amylase (25-115) U/L Lipase (73-393) U/L Urine Color DARK YELLOW Urine Appearance CLOUDY Urine pH 5.5 (5.0-8.0) Ur Specific [place] 1.025 (1.001-1.035) Urine Protein 30 (NEGATIVE) mg/dL Urine Glucose (UA) 100 H (NEGATIVE) mg/dL Urine Ketones 40 H (NEGATIVE) mg/dL Urine Occult Blood NEGATIVE (NEGATIVE) Urine Nitrite POSITIVE H (NEGATIVE) Urine Bilirubin LARGE H (NEGATIVE) Urine Ictotest POSITIVE Urine Urobilinogen 4.0 H (<2.0) EU/dL Ur Leukocyte Esterase TRACE (NEGATIVE) Urine RBC 1-2 (0-2/HPF) Urine WBC 1-2 (0-5/HPF) Ur Epithelial Cells FEW (NONE-FEW) Amorphous Sediment HEAVY (NEGATIVE) Urine Bacteria 1+ H (NEGATIVE) H. pylori IgG Antibody (NEG) Result Diagrams: 07/23/17 16:00 07/23/17 16:00 Problem List Initiated/Reviewed/Updated: Yes Orders Last 24hrs: Active Orders 24 hr Category Date Time Status Admission Status [Patient Status] [ADT] Stat ADT 07/23/17 16:51 Active Oxygen Therapy [RC] PRN Care 07/23/17 22:35 Ordered Telemetry Monitoring [Cardiac Monitoring] [RC] . Care 07/23/17 18:44 Active DIRECTED Up ad Sharda [RC] ASDIRECTED Care 07/23/17 22:35 Ordered VTE/DVT Education [RC] PER UNIT ROUTINE Care 07/23/17 22:35 Ordered Vital Signs [RC] Q4H Care 07/23/17 22:35 Ordered NPO [Nothing Per Oral Diet] [DIET] Diet 07/23/17 Dinner Active Regular Diet [DIET] Diet 07/23/17 Breakfast Ordered BILIRUBIN DIRECT/INDIRECT [CHEM] Routine Lab 07/23/17 22:15 Ordered BMP [BASIC METABOLIC PANEL,BMP] [CHEM] Routine Lab 07/24/17 05:00 Ordered CBC WITH AUTO DIFF [HEME] AM Lab 07/24/17 05:11 Ordered CBC WITH AUTO DIFF [HEME] AM Lab 07/25/17 05:11 Ordered CBC WITH AUTO DIFF [HEME] AM Lab 07/26/17 05:11 Ordered COMPREHENSIVE METABOLIC PN,CMP [CHEM] AM Lab 07/24/17 05:11 Ordered COMPREHENSIVE METABOLIC PN,CMP [CHEM] AM Lab 07/25/17 05:11 Ordered COMPREHENSIVE METABOLIC PN,CMP [CHEM] AM Lab 07/26/17 05:11 Ordered CULTURE URINE [RM] Routine Lab 07/23/17 22:34 Ordered INR,PT,PROTHROMBIN TIME [COAG] AM Lab 07/24/17 05:11 Ordered INR,PT,PROTHROMBIN TIME [COAG] AM Lab 07/25/17 05:11 Ordered INR,PT,PROTHROMBIN TIME [COAG] AM Lab 07/26/17 05:11 Ordered INR,PT,PROTHROMBIN TIME [COAG] Routine Lab 07/23/17 22:35 Ordered MAGNESIUM [CHEM] AM Lab 07/24/17 05:11 Ordered MAGNESIUM [CHEM] AM Lab 07/25/17 05:11 Ordered MAGNESIUM [CHEM] AM Lab 07/26/17 05:11 Ordered PHOSPHORUS [CHEM] AM Lab 07/24/17 05:11 Ordered PHOSPHORUS [CHEM] AM Lab 07/25/17 05:11 Ordered PHOSPHORUS [CHEM] AM Lab 07/26/17 05:11 Ordered UA W/MICROSCOPIC [URIN] Stat Lab 07/23/17 21:36 Ordered Morphine Med 07/23/17 18:45 Active 2 mg IVPUSH Q3H PRN Ondansetron [Zofran] Med 07/23/17 18:46 Active 4 mg IVPUSH Q3H PRN Pantoprazole [ProTONIX] Med 07/24/17 21:00 Ordered 40 mg PO BEDTIME Sodium Chloride 0.9% with KCl [Normal Saline with 40 Med 07/23/17 18:48 Active mEq KCl] 1,000 ml IV ASDIRECTED cefTRIAXone [Rocephin] Med 07/23/17 22:45 Ordered 1,000 mg IVPUSH Q24H Sequential Compression Device [OM.PC] Per Unit Routine Oth 07/23/17 22:36 Ordered Resuscitation Status Routine Resus Stat 07/23/17 22:35 Ordered Medication Orders Ceftriaxone Sodium (Rocephin) 1,000 mg IVPUSH Q24H [facility] Potassium Chloride/Sodium Chloride (Normal Saline With 40 Meq Kcl) 1,000 mls @ 125 mls/hr IV ASDIRECTED ONE Stop: 07/24/17 02:47 Last Admin: 07/23/17 19:02 Dose: 125 mls/hr Morphine Sulfate (Morphine) 2 mg IVPUSH Q3H PRN PRN Reason: pain Last Admin: 07/23/17 19:34 Dose: 2 mg Ondansetron HCl (Zofran) 4 mg IVPUSH Q3H PRN PRN Reason: Nausea/Vomiting Pantoprazole Sodium (Protonix) 40 mg PO BEDTIME [facility] Assessment/Plan Comment:: 46 yo female admitted with alcoholic hepatitis Alcoholic hepatitis: continue supportive care, PPI, consider prednisolone, will check INR. UTI: rocephin, cultures pending hypokalemia: replacing Abdominal pain/nausea: antiemetics and pain control DVT prophylaxis: SCDs
[2017-07-23] MEDS ORDERED: cefTRIAXone 1,000 MG in Sodium Chloride 0.9% 50 ML IV SCH (22:45)
[2017-07-23] MEDS ORDERED: cefTRIAXone 1,000 MG VIAL IVPUSH SCH (22:45)
[2017-07-23] MEDS ORDERED: Potassium Chloride 20 MEQ Tab.ER PO ONE (22:48)
[2017-07-23] MEDS: Ondansetron 4 MG/2 ML SDV IVPUSH PRN (22:49)
[2017-07-23] MEDS: Thiamine 200 MG/2 ML MDV IV SCH (23:05)
[2017-07-23] MEDS: Folic Acid 50 MG/10 ML MDV SUBCUT SCH (23:05)
[2017-07-24] MEDS: Morphine 2 MG/ML Syringe IVPUSH PRN ×6 (01:42→21:00)
[2017-07-24 06:51] LABS: CHLORIDE,CL 100 mmol/L (98-107); SODIUM,NA 139 mmol/L (136-145)
[2017-07-24] MEDS: Ondansetron 4 MG/2 ML SDV IVPUSH PRN ×2 (07:39→21:00)
[2017-07-24] MEDS ORDERED: Magnesium Sulfate/Water 2 GM in Premix Bag 1 BAG IV ONE (08:02)
[2017-07-24] MEDS: Folic Acid 50 MG/10 ML MDV SUBCUT SCH (08:33)
[2017-07-24] MEDS: Thiamine 200 MG/2 ML MDV IV SCH (08:34)
--- NOTE | 2017-07-24 10:11 | PCM.PN ---
- General Info Date of Service: 07/24/17 Admission Dx/Problem (Free Text): Admission Diagnosis/Problem Admission Diagnosis/Problem Hypokalemia Subjective Update: Patient states she is no longer having diarrhea but her nausea, vomiting and abdominal pain are still present. The are still occurring whenever she eats. Her and her both state that they recently received call from the office of their GI who informed them that she has toxic levels of Vitamin B6 and Vitamin D. Functional Status: Reports: Pain Controlled, Urinating. Denies: Tolerating Diet , Ambulating - Review of Systems General: Reports: Weakness HEENT: Reports: No Symptoms Pulmonary: Reports: No Symptoms Cardiovascular: Reports: No Symptoms Gastrointestinal: Reports: Abdominal Pain, Decreased Appetite, Nausea, Vomiting Genitourinary: Reports: Dysuria, Frequency Musculoskeletal: Reports: No Symptoms Skin: Reports: Other (jaundice) Neurological: Reports: Dizziness, Headache, Tremors Psychiatric: Reports: No Symptoms - Patient Data Vitals - Most Recent: Last Vital Signs Temp 36.9 C 07/24/17 07:00 Pulse 116 H 07/24/17 07:00 Resp 18 07/24/17 07:00 BP 104/68 07/24/17 07:00 Pulse Ox 94 L 07/24/17 07:00 Weight - Most Recent: 50.7 kg I&O - Last 24 Hours: Intake & Output 07/23/17 07/24/17 07/24/17 22:59 06:59 14:59 Intake Total 270 Output Total 480 Balance -210 Lab Results Last 24 Hours: Laboratory Results - last 24 hr 07/23/17 07/23/17 07/23/17 Range/Units 16:00 16:00 16:00 WBC 8.32 (4.0-11.0) K/uL RBC 3.16 L (4.30-5.90) M/uL Hgb 10.2 L (12.0-16.0) g/dL Hct 31.4 L (36.0-46.0) % MCV 99.4 H (80.0-98.0) fL MCH 32.3 H (27.0-32.0) pg MCHC 32.5 (31.0-37.0) g/dL RDW Std Deviation 71.9 H (28.0-62.0) fl RDW Coeff of [place] 20 H (11.0-15.0) % Plt Count 215 (150-400) K/uL MPV 9.40 (7.40-12.00) fL Neut % (Auto) 70.0 (48.0-80.0) % Lymph % (Auto) 20.6 (16.0-40.0) % [place] % (Auto) 7.0 (0.0-15.0) % Eos % (Auto) 1.8 (0.0-7.0) % Baso % (Auto) 0.6 (0.0-1.5) % Neut # (Auto) 5.8 H (1.4-5.7) K/uL Lymph # (Auto) 1.7 (0.6-2.4) K/uL [place] # (Auto) 0.6 (0.0-0.8) K/uL Eos # (Auto) 0.2 (0.0-0.7) K/uL Baso # (Auto) 0.1 (0.0-0.1) K/uL Nucleated RBC % 0.0 /100WBC Nucleated RBCs # 0 K/uL INR Sodium 137 (136-145) mmol/L Potassium 2.5 L (3.5-5.1) mmol/L Chloride 94 L (98-107) mmol/L Carbon Dioxide 33.1 H (21.0-32.0) mmol/L BUN 5 L (7.0-18.0) mg/dL Creatinine 0.7 (0.6-1.0) mg/dL Est Cr Clr Drug Dosing 83.95 mL/min Estimated GFR (MDRD) > 60.0 ml/min Glucose 111 H (74-106) mg/dL Calcium 8.5 (8.5-10.1) mg/dL Phosphorus (2.6-4.7) mg/dL Magnesium (1.5-2.0) mg/dL Total Bilirubin 10.3 H (0.2-1.0) mg/dL Direct Bilirubin (0.05-0.20) mg/dL Indirect Bilirubin (0.0-1.0) mg/dL AST 187 H (15-37) IU/L ALT 38 (14-63) IU/L Alkaline Phosphatase 322 H (46-116) U/L Total Protein 7.8 (6.4-8.2) g/dL Albumin 2.2 L (3.4-5.0) g/dL Globulin 5.6 H (2.0-3.5) g/dL Albumin/Globulin Ratio 0.4 L (1.3-2.8) Amylase 21 L (25-115) U/L Lipase 231 (73-393) U/L Urine Color Urine Appearance Urine pH (5.0-8.0) Ur Specific [place] (1.001-1.035) Urine Protein (NEGATIVE) mg/dL Urine Glucose (UA) (NEGATIVE) mg/dL Urine Ketones (NEGATIVE) mg/dL Urine Occult Blood (NEGATIVE) Urine Nitrite (NEGATIVE) Urine Bilirubin (NEGATIVE) Urine Ictotest Urine Urobilinogen (<2.0) EU/dL Ur Leukocyte Esterase (NEGATIVE) Urine RBC (0-2/HPF) Urine WBC (0-5/HPF) Ur Epithelial Cells (NONE-FEW) Amorphous Sediment (NEGATIVE) Urine Bacteria (NEGATIVE) H. pylori IgG Antibody POSITIVE H (NEG) 07/23/17 07/23/17 07/23/17 Range/Units 16:00 16:00 21:36 WBC (4.0-11.0) K/uL RBC (4.30-5.90) M/uL Hgb (12.0-16.0) g/dL Hct (36.0-46.0) % MCV (80.0-98.0) fL MCH (27.0-32.0) pg MCHC (31.0-37.0) g/dL RDW Std Deviation (28.0-62.0) fl RDW Coeff of [place] (11.0-15.0) % Plt Count (150-400) K/uL MPV (7.40-12.00) fL Neut % (Auto) (48.0-80.0) % Lymph % (Auto) (16.0-40.0) % [place] % (Auto) (0.0-15.0) % Eos % (Auto) (0.0-7.0) % Baso % (Auto) (0.0-1.5) % Neut # (Auto) (1.4-5.7) K/uL Lymph # (Auto) (0.6-2.4) K/uL [place] # (Auto) (0.0-0.8) K/uL Eos # (Auto) (0.0-0.7) K/uL Baso # (Auto) (0.0-0.1) K/uL Nucleated RBC % /100WBC Nucleated RBCs # K/uL INR Sodium (136-145) mmol/L Potassium (3.5-5.1) mmol/L Chloride (98-107) mmol/L Carbon Dioxide (21.0-32.0) mmol/L BUN (7.0-18.0) mg/dL Creatinine (0.6-1.0) mg/dL Est Cr Clr Drug Dosing mL/min Estimated GFR (MDRD) ml/min Glucose (74-106) mg/dL Calcium (8.5-10.1) mg/dL Phosphorus (2.6-4.7) mg/dL Magnesium 1.5 (1.5-2.0) mg/dL Total Bilirubin 10.3 H (0.2-1.0) mg/dL Direct Bilirubin 7.21 H (0.05-0.20) mg/dL Indirect Bilirubin 3.1 H (0.0-1.0) mg/dL AST (15-37) IU/L ALT (14-63) IU/L Alkaline Phosphatase (46-116) U/L Total Protein (6.4-8.2) g/dL Albumin (3.4-5.0) g/dL Globulin (2.0-3.5) g/dL Albumin/Globulin Ratio (1.3-2.8) Amylase (25-115) U/L Lipase (73-393) U/L Urine Color DARK YELLOW Urine Appearance CLOUDY Urine pH 5.5 (5.0-8.0) Ur Specific [place] 1.025 (1.001-1.035) Urine Protein 30 (NEGATIVE) mg/dL Urine Glucose (UA) 100 H (NEGATIVE) mg/dL Urine Ketones 40 H (NEGATIVE) mg/dL Urine Occult Blood NEGATIVE (NEGATIVE) Urine Nitrite POSITIVE H (NEGATIVE) Urine Bilirubin LARGE H (NEGATIVE) Urine Ictotest POSITIVE Urine Urobilinogen 4.0 H (<2.0) EU/dL Ur Leukocyte Esterase TRACE (NEGATIVE) Urine RBC 1-2 (0-2/HPF) Urine WBC 1-2 (0-5/HPF) Ur Epithelial Cells FEW (NONE-FEW) Amorphous Sediment HEAVY (NEGATIVE) Urine Bacteria 1+ H (NEGATIVE) H. pylori IgG Antibody (NEG) 07/23/17 07/24/17 07/24/17 Range/Units 22:45 06:24 06:24 WBC 9.10 (4.0-11.0) K/uL RBC 2.79 L (4.30-5.90) M/uL Hgb 9.1 L (12.0-16.0) g/dL Hct 28.2 L (36.0-46.0) % MCV 101.1 H (80.0-98.0) fL MCH 32.6 H (27.0-32.0) pg MCHC 32.3 (31.0-37.0) g/dL RDW Std Deviation 74.6 H (28.0-62.0) fl RDW Coeff of [place] 20 H (11.0-15.0) % Plt Count 181 (150-400) K/uL MPV 9.20 (7.40-12.00) fL Neut % (Auto) 73.0 (48.0-80.0) % Lymph % (Auto) 19.1 (16.0-40.0) % [place] % (Auto) 6.4 (0.0-15.0) % Eos % (Auto) 1.2 (0.0-7.0) % Baso % (Auto) 0.3 (0.0-1.5) % Neut # (Auto) 6.6 H (1.4-5.7) K/uL Lymph # (Auto) 1.7 (0.6-2.4) K/uL [place] # (Auto) 0.6 (0.0-0.8) K/uL Eos # (Auto) 0.1 (0.0-0.7) K/uL Baso # (Auto) 0.0 (0.0-0.1) K/uL Nucleated RBC % 0.0 /100WBC Nucleated RBCs # 0 K/uL INR 1.65 1.71 Sodium (136-145) mmol/L Potassium (3.5-5.1) mmol/L Chloride (98-107) mmol/L Carbon Dioxide (21.0-32.0) mmol/L BUN (7.0-18.0) mg/dL Creatinine (0.6-1.0) mg/dL Est Cr Clr Drug Dosing mL/min Estimated GFR (MDRD) ml/min Glucose (74-106) mg/dL Calcium (8.5-10.1) mg/dL Phosphorus (2.6-4.7) mg/dL Magnesium (1.5-2.0) mg/dL Total Bilirubin (0.2-1.0) mg/dL Direct Bilirubin (0.05-0.20) mg/dL Indirect Bilirubin (0.0-1.0) mg/dL AST (15-37) IU/L ALT (14-63) IU/L Alkaline Phosphatase (46-116) U/L Total Protein (6.4-8.2) g/dL Albumin (3.4-5.0) g/dL Globulin (2.0-3.5) g/dL Albumin/Globulin Ratio (1.3-2.8) Amylase (25-115) U/L Lipase (73-393) U/L Urine Color Urine Appearance Urine pH (5.0-8.0) Ur Specific [place] (1.001-1.035) Urine Protein (NEGATIVE) mg/dL Urine Glucose (UA) (NEGATIVE) mg/dL Urine Ketones (NEGATIVE) mg/dL Urine Occult Blood (NEGATIVE) Urine Nitrite (NEGATIVE) Urine Bilirubin (NEGATIVE) Urine Ictotest Urine Urobilinogen (<2.0) EU/dL Ur Leukocyte Esterase (NEGATIVE) Urine RBC (0-2/HPF) Urine WBC (0-5/HPF) Ur Epithelial Cells (NONE-FEW) Amorphous Sediment (NEGATIVE) Urine Bacteria (NEGATIVE) H. pylori IgG Antibody (NEG) 07/24/17 Range/Units 06:24 WBC (4.0-11.0) K/uL RBC (4.30-5.90) M/uL Hgb (12.0-16.0) g/dL Hct (36.0-46.0) % MCV (80.0-98.0) fL MCH (27.0-32.0) pg MCHC (31.0-37.0) g/dL RDW Std Deviation (28.0-62.0) fl RDW Coeff of [place] (11.0-15.0) % Plt Count (150-400) K/uL MPV (7.40-12.00) fL Neut % (Auto) (48.0-80.0) % Lymph % (Auto) (16.0-40.0) % [place] % (Auto) (0.0-15.0) % Eos % (Auto) (0.0-7.0) % Baso % (Auto) (0.0-1.5) % Neut # (Auto) (1.4-5.7) K/uL Lymph # (Auto) (0.6-2.4) K/uL [place] # (Auto) (0.0-0.8) K/uL Eos # (Auto) (0.0-0.7) K/uL Baso # (Auto) (0.0-0.1) K/uL Nucleated RBC % /100WBC Nucleated RBCs # K/uL INR Sodium 139 (136-145) mmol/L Potassium 3.8 (3.5-5.1) mmol/L Chloride 100 (98-107) mmol/L Carbon Dioxide 32.3 H (21.0-32.0) mmol/L BUN 5 L (7.0-18.0) mg/dL Creatinine 0.7 (0.6-1.0) mg/dL Est Cr Clr Drug Dosing 80.27 mL/min Estimated GFR (MDRD) > 60.0 ml/min Glucose 90 (74-106) mg/dL Calcium 7.8 L (8.5-10.1) mg/dL Phosphorus 2.8 (2.6-4.7) mg/dL Magnesium 1.4 L (1.5-2.0) mg/dL Total Bilirubin 9.8 H (0.2-1.0) mg/dL Direct Bilirubin (0.05-0.20) mg/dL Indirect Bilirubin (0.0-1.0) mg/dL AST 148 H (15-37) IU/L ALT 32 (14-63) IU/L Alkaline Phosphatase 270 H (46-116) U/L Total Protein 6.9 (6.4-8.2) g/dL Albumin 1.9 L (3.4-5.0) g/dL Globulin 5.0 H (2.0-3.5) g/dL Albumin/Globulin Ratio 0.4 L (1.3-2.8) Amylase (25-115) U/L Lipase (73-393) U/L Urine Color Urine Appearance Urine pH (5.0-8.0) Ur Specific [place] (1.001-1.035) Urine Protein (NEGATIVE) mg/dL Urine Glucose (UA) (NEGATIVE) mg/dL Urine Ketones (NEGATIVE) mg/dL Urine Occult Blood (NEGATIVE) Urine Nitrite (NEGATIVE) Urine Bilirubin (NEGATIVE) Urine Ictotest Urine Urobilinogen (<2.0) EU/dL Ur Leukocyte Esterase (NEGATIVE) Urine RBC (0-2/HPF) Urine WBC (0-5/HPF) Ur Epithelial Cells (NONE-FEW) Amorphous Sediment (NEGATIVE) Urine Bacteria (NEGATIVE) H. pylori IgG Antibody (NEG) Med Orders - Current: Current Medications Folic Acid (Folic Acid) 1 mg SUBCUT DAILY [facility] Last Admin: 07/24/17 08:33 Dose: 1 mg Ceftriaxone Sodium 1 gm/ (Sodium Chloride) 50 mls @ 100 mls/hr IV Q24H [facility] Lorazepam (Ativan) 1 mg IVPUSH Q4H PRN PRN Reason: Agitation Morphine Sulfate (Morphine) 2 mg IVPUSH Q3H PRN PRN Reason: pain Last Admin: 07/24/17 08:30 Dose: 2 mg Ondansetron HCl (Zofran) 4 mg IVPUSH Q3H PRN PRN Reason: Nausea/Vomiting Last Admin: 07/24/17 07:39 Dose: 4 mg Pantoprazole Sodium (Protonix) 40 mg PO BEDTIME [facility] Thiamine HCl (Vitamin B-1) 100 mg IV DAILY [facility] Last Admin: 07/24/17 08:34 Dose: 100 mg Discontinued Medications Ceftriaxone Sodium (Rocephin) 1,000 mg IVPUSH Q24H [facility] Sodium Chloride (Normal Saline) 1,000 mls @ 125 mls/hr IV STAT ONE Stop: 07/23/17 23:21 Last Admin: 07/23/17 16:00 Dose: 125 mls/hr Potassium Chloride/Sodium Chloride (Normal Saline With 40 Meq Kcl) 1,000 mls @ 125 mls/hr IV ASDIRECTED ONE Stop: 07/24/17 02:47 Last Admin: 07/23/17 19:02 Dose: 125 mls/hr Ceftriaxone Sodium 1,000 mg/ (Sodium Chloride) 50 mls @ 200 mls/hr IV Q24H [facility] Last Admin: 07/23/17 23:04 Dose: 200 mls/hr Magnesium Sulfate 2 gm/ Premix 50 mls @ 50 mls/hr IV ONETIME ONE Stop: 07/24/17 09:01 Last Admin: 07/24/17 08:29 Dose: 50 mls/hr Morphine Sulfate (Morphine) 4 mg IVPUSH ONETIME ONE Stop: 07/23/17 15:49 Last Admin: 07/23/17 16:25 Dose: 4 mg Ondansetron HCl (Zofran) 4 mg IVPUSH ONETIME ONE Stop: 07/23/17 15:49 Last Admin: 07/23/17 16:25 Dose: 4 mg Potassium Chloride (Klor-Con M20) 40 meq PO NOW STA Stop: 07/23/17 16:54 Last Admin: 07/23/17 17:15 Dose: 40 meq Potassium Chloride (Klor-Con M20) 20 meq PO ONETIME ONE Stop: 07/23/17 22:49 Last Admin: 07/23/17 23:05 Dose: 20 meq - Exam General: Alert, Oriented, No Acute Distress HEENT: Pupils Equal, Pupils Reactive, EOMI, Scleral Icterus Neck: Supple Lungs: Decreased Breath Sounds Cardiovascular: Regular Rate, Regular Rhythm GI/Abdominal Exam: Normal Bowel Sounds, Distended, Tender (diffuse), Hepatomegaly. No: Rebound Back Exam: Normal Inspection Extremities: Normal Range of Motion, Non-Tender, No Pedal Edema Skin: Other (jaundice) Neurological: No New Focal Deficit Psy/Mental Status: Alert, Normal Affect, Normal Mood. No: Withdrawal Symptoms - Problem List Review Problem List Initiated/Reviewed/Updated: Yes - My Orders Last 24 Hours: My Active Orders 07/24/17 10:04 VITAMIN B12 [CHEM] Routine VITAMIN B6 [REF] Routine VITAMIN D 25-HYROXY (D2, D3) [REF] Routine - Plan Plan:: 46 yo female admitted with history of Alcoholic hepatitis, alcohol use disorder and possible Vitamin B6/D toxicity is admitted for nausea, vomiting, abdominal pain presumed secondary to alcoholic hepatitis and UTI #UTI -on Rocephin day 2/3 -continue Roecephin for 1 more dose -f/u UC #Nausea and Vomiting #Abdominal Pain -likely secondary to alcoholic hepatitis however patient was found to have positive H. Pylori IgG Ab -continue Morphine PRN and Zofran scheduled prior to meals -obtain records -continue to monitor for any melena or other signs of GI ulcers #Alcoholic Hepatitis #Alcohol Use Disorder #Hepatomegaly, likely secondary to alcoholic hepatitis #Elevated INR, likely secondary to alcoholic hepatitis #Hypoalbuminemia #Elevated AST, likely secondary to alcoholic hepatitis #Hyperbilirubinemia, likely secondary to alcoholic hepatitis #Elevated Alk Phos, likely secondary to alcoholic hepatitis -continue Thiamine and Folic Acid -Continue CIWA Protocol and Ativan PRN and as per CIWA protocol -start Steroids after adequate treatment of UTI -obtain records and continue to monitor #Macrocytic Anemia -obtain Vitamin B12 & Folate -continue to monitor #Vitamin B Toxicity, as per patient #Vitamin D Toxicity, as per patient -patient reports that her GI office contacted and informed her to stop taking Vitamin B and D due to toxic levels -obtain Vitamin B6 & D -obtain records #Hypokalemia, corrected -continue to monitor code: full diet: regular DVT Prophylaxis: SCD
[2017-07-24] MEDS: Ondansetron 4 MG/2 ML SDV IVPUSH SCH ×4 (11:38→18:19)
[2017-07-24] MEDS ORDERED: Pantoprazole 40 MG Tab.CR PO SCH (21:00)
[2017-07-24] MEDS: cefTRIAXone 1 GM in Sodium Chloride 0.9% 50 ML IV SCH (23:09)
[2017-07-25] MEDS: Morphine 2 MG/ML Syringe IVPUSH PRN ×4 (00:24→16:33)
[2017-07-25] MEDS: Ondansetron 4 MG/2 ML SDV IVPUSH PRN (00:25)
[2017-07-25 06:23] LABS: CHLORIDE,CL 98 mmol/L (98-107); SODIUM,NA 136 mmol/L (136-145)
[2017-07-25] MEDS: Ondansetron 4 MG/2 ML SDV IVPUSH SCH ×4 (07:21→16:33)
[2017-07-25] MEDS: Thiamine 200 MG/2 ML MDV IV SCH (08:46)
[2017-07-25] MEDS: Folic Acid 50 MG/10 ML MDV SUBCUT SCH (08:47)
[2017-07-25] MEDS ORDERED: Polyethylene Glycol 3350 Powder 17 GM Packet PO ONE (08:55)
[2017-07-25] MEDS ORDERED: Pantoprazole 40 MG Tab.CR PO SCH (09:00)
[2017-07-25] MEDS: LORazepam 2 MG/ML SDV IVPUSH PRN (09:59)
--- NOTE | 2017-07-25 10:03 | PCM.PN ---
- General Info Date of Service: 07/25/17 Admission Dx/Problem (Free Text): Admission Diagnosis/Problem Admission Diagnosis/Problem Acute Alcoholic Hepatitis Subjective Update: Patient complains of worsening abdominal pain this morning. She also reports constipation and has not had a BM since admission. She is eating but states she has nausea and vomiting right after - Review of Systems General: Reports: Weakness HEENT: Reports: No Symptoms Pulmonary: Reports: No Symptoms Cardiovascular: Reports: No Symptoms Gastrointestinal: Reports: Abdominal Pain, Constipation, Decreased Appetite, Nausea, Vomiting Genitourinary: Reports: No Symptoms Musculoskeletal: Reports: No Symptoms Skin: Reports: No Symptoms Neurological: Reports: No Symptoms Psychiatric: Reports: No Symptoms - Patient Data Vitals - Most Recent: Last Vital Signs Temp 36.3 C 07/25/17 08:00 Pulse 115 H 07/25/17 08:00 Resp 16 07/25/17 08:00 BP 110/71 07/25/17 08:00 Pulse Ox 96 07/25/17 08:00 Weight - Most Recent: 50.7 kg I&O - Last 24 Hours: Intake & Output 07/24/17 07/25/17 07/25/17 22:59 06:59 14:59 Intake Total 300 Output Total 1080 Balance -780 Lab Results Last 24 Hours: Laboratory Results - last 24 hr 07/24/17 07/25/17 07/25/17 Range/Units 06:24 05:42 05:42 WBC 10.28 (4.0-11.0) K/uL RBC 2.73 L (4.30-5.90) M/uL Hgb 8.8 L (12.0-16.0) g/dL Hct 27.8 L (36.0-46.0) % MCV 101.8 H (80.0-98.0) fL MCH 32.2 H (27.0-32.0) pg MCHC 31.7 (31.0-37.0) g/dL RDW Std Deviation 73.3 H (28.0-62.0) fl RDW Coeff of Concetta 20 H (11.0-15.0) % Plt Count 196 (150-400) K/uL MPV 9.50 (7.40-12.00) fL Neut % (Auto) 72.3 (48.0-80.0) % Lymph % (Auto) 18.0 (16.0-40.0) % Crook % (Auto) 7.1 (0.0-15.0) % Eos % (Auto) 2.2 (0.0-7.0) % Baso % (Auto) 0.4 (0.0-1.5) % Neut # (Auto) 7.4 H (1.4-5.7) K/uL Lymph # (Auto) 1.9 (0.6-2.4) K/uL Crook # (Auto) 0.7 (0.0-0.8) K/uL Eos # (Auto) 0.2 (0.0-0.7) K/uL Baso # (Auto) 0.0 (0.0-0.1) K/uL Nucleated RBC % 0.0 /100WBC Nucleated RBCs # 0 K/uL Smear Path Review Absolute Retic (20-80) K/uL Percent Retic (0.5-1.5) % Immature Retic Fraction % INR 1.73 Sodium (136-145) mmol/L Potassium (3.5-5.1) mmol/L Chloride (98-107) mmol/L Carbon Dioxide (21.0-32.0) mmol/L BUN (7.0-18.0) mg/dL Creatinine (0.6-1.0) mg/dL Est Cr Clr Drug Dosing mL/min Estimated GFR (MDRD) ml/min Glucose (74-106) mg/dL Calcium (8.5-10.1) mg/dL Phosphorus (2.6-4.7) mg/dL Magnesium (1.5-2.0) mg/dL Total Bilirubin (0.2-1.0) mg/dL AST (15-37) IU/L ALT (14-63) IU/L Alkaline Phosphatase (46-116) U/L Total Protein (6.4-8.2) g/dL Albumin (3.4-5.0) g/dL Globulin (2.0-3.5) g/dL Albumin/Globulin Ratio (1.3-2.8) Vitamin B12 1567 H (193-986) pg/mL Folate (8.60-58.90) ng/mL 07/25/17 07/25/17 07/25/17 Range/Units 05:42 05:42 05:42 WBC (4.0-11.0) K/uL RBC 2.76 L (4.30-5.90) M/uL Hgb (12.0-16.0) g/dL Hct (36.0-46.0) % MCV (80.0-98.0) fL MCH (27.0-32.0) pg MCHC (31.0-37.0) g/dL RDW Std Deviation (28.0-62.0) fl RDW Coeff of Concetta (11.0-15.0) % Plt Count (150-400) K/uL MPV (7.40-12.00) fL Neut % (Auto) (48.0-80.0) % Lymph % (Auto) (16.0-40.0) % Crook % (Auto) (0.0-15.0) % Eos % (Auto) (0.0-7.0) % Baso % (Auto) (0.0-1.5) % Neut # (Auto) (1.4-5.7) K/uL Lymph # (Auto) (0.6-2.4) K/uL Crook # (Auto) (0.0-0.8) K/uL Eos # (Auto) (0.0-0.7) K/uL Baso # (Auto) (0.0-0.1) K/uL Nucleated RBC % /100WBC Nucleated RBCs # K/uL Smear Path Review SENT TO PATHOLOGY Absolute Retic 89.10 H (20-80) K/uL Percent Retic 3.2 H (0.5-1.5) % Immature Retic Fraction 24 % INR Sodium 136 (136-145) mmol/L Potassium 3.5 (3.5-5.1) mmol/L Chloride 98 (98-107) mmol/L Carbon Dioxide 32.7 H (21.0-32.0) mmol/L BUN 6 L (7.0-18.0) mg/dL Creatinine 0.7 (0.6-1.0) mg/dL Est Cr Clr Drug Dosing 80.27 mL/min Estimated GFR (MDRD) > 60.0 ml/min Glucose 87 (74-106) mg/dL Calcium 8.0 L (8.5-10.1) mg/dL Phosphorus 2.4 L (2.6-4.7) mg/dL Magnesium 2.0 (1.5-2.0) mg/dL Total Bilirubin 9.1 H (0.2-1.0) mg/dL AST 126 H (15-37) IU/L ALT 29 (14-63) IU/L Alkaline Phosphatase 249 H (46-116) U/L Total Protein 6.7 (6.4-8.2) g/dL Albumin 1.9 L (3.4-5.0) g/dL Globulin 4.8 H (2.0-3.5) g/dL Albumin/Globulin Ratio 0.4 L (1.3-2.8) Vitamin B12 (193-986) pg/mL Folate 6.10 L (8.60-58.90) ng/mL Med Orders - Current: Current Medications Folic Acid (Folic Acid) 1 mg SUBCUT DAILY [facility] Last Admin: 07/25/17 08:47 Dose: 1 mg Ceftriaxone Sodium 1 gm/ (Sodium Chloride) 50 mls @ 100 mls/hr IV Q24H [facility] Last Admin: 07/24/17 23:09 Dose: 100 mls/hr Lorazepam (Ativan) 1 mg IVPUSH Q4H PRN PRN Reason: Agitation Morphine Sulfate (Morphine) 2 mg IVPUSH Q3H PRN PRN Reason: pain Last Admin: 07/25/17 08:56 Dose: 2 mg Ondansetron HCl (Zofran) 4 mg IVPUSH Q3H PRN PRN Reason: Nausea/Vomiting Last Admin: 07/25/17 00:25 Dose: 4 mg Ondansetron HCl (Zofran) 4 mg IVPUSH ACBREAKFAST [facility] Last Admin: 07/25/17 07:29 Dose: Not Given Ondansetron HCl (Zofran) 4 mg IVPUSH ACDINNER [facility] Last Admin: 07/24/17 18:19 Dose: Not Given Ondansetron HCl (Zofran) 4 mg IVPUSH ACLUNCH [facility] Last Admin: 07/24/17 11:38 Dose: 4 mg Pantoprazole Sodium (Protonix Iv) 40 mg IVPUSH BID [facility] Thiamine HCl (Vitamin B-1) 100 mg IV DAILY [facility] Last Admin: 07/25/17 08:46 Dose: 100 mg Discontinued Medications Ceftriaxone Sodium (Rocephin) 1,000 mg IVPUSH Q24H [facility]A Sodium Chloride (Normal Saline) 1,000 mls @ 125 mls/hr IV STAT ONE Stop: 07/23/17 23:21 Last Admin: 07/23/17 16:00 Dose: 125 mls/hr Potassium Chloride/Sodium Chloride (Normal Saline With 40 Meq Kcl) 1,000 mls @ 125 mls/hr IV ASDIRECTED ONE Stop: 07/24/17 02:47 Last Admin: 07/23/17 19:02 Dose: 125 mls/hr Ceftriaxone Sodium 1,000 mg/ (Sodium Chloride) 50 mls @ 200 mls/hr IV Q24H SHAKIRA Last Admin: 07/23/17 23:04 Dose: 200 mls/hr Magnesium Sulfate 2 gm/ Premix 50 mls @ 50 mls/hr IV ONETIME ONE Stop: 07/24/17 09:01 Last Admin: 07/24/17 08:29 Dose: 50 mls/hr Morphine Sulfate (Morphine) 4 mg IVPUSH ONETIME ONE Stop: 07/23/17 15:49 Last Admin: 07/23/17 16:25 Dose: 4 mg Ondansetron HCl (Zofran) 4 mg IVPUSH ONETIME ONE Stop: 07/23/17 15:49 Last Admin: 07/23/17 16:25 Dose: 4 mg Pantoprazole Sodium (Protonix) 40 mg PO BEDTIME SHAKIRA Last Admin: 07/24/17 20:52 Dose: 40 mg Pantoprazole Sodium (Protonix) 40 mg PO BID [facility] Polyethylene Glycol (Miralax) 17 gm PO ONETIME ONE Stop: 07/25/17 08:56 Potassium Chloride (Klor-Con M20) 40 meq PO NOW STA Stop: 07/23/17 16:54 Last Admin: 07/23/17 17:15 Dose: 40 meq Potassium Chloride (Klor-Con M20) 20 meq PO ONETIME ONE Stop: 07/23/17 22:49 Last Admin: 07/23/17 23:05 Dose: 20 meq - Exam General: Alert, Oriented, Mild Distress HEENT: Pupils Equal, Pupils Reactive, Scleral Icterus Neck: Supple Lungs: Clear to Auscultation, Normal Respiratory Effort Cardiovascular: Regular Rhythm, Tachycardia GI/Abdominal Exam: Normal Bowel Sounds, Distended, Tender, Hepatomegaly Back Exam: No: CVA Tenderness (L), CVA Tenderness (R) Extremities: Normal Inspection, No Pedal Edema, Normal Capillary Refill Skin: Other (jaundice ) Neurological: No New Focal Deficit Psy/Mental Status: Alert, Depressed - Problem List Review Problem List Initiated/Reviewed/Updated: Yes - My Orders Last 24 Hours: My Active Orders 07/24/17 10:04 VITAMIN B6 [REF] Routine 07/24/17 11:00 Ondansetron [Zofran] 4 mg IVPUSH ACLUNCH 07/24/17 16:30 Ondansetron [Zofran] 4 mg IVPUSH ACDINNER 07/25/17 07:00 Ondansetron [Zofran] 4 mg IVPUSH ACBREAKFAST 07/25/17 08:05 FERRITIN [CHEM] Routine IRON/TIBC [CHEM] Routine 07/25/17 09:09 OCCULT BLOOD SCREEN [OP] Routine 07/25/17 09:11 Enema [RC] ASDIRECTED 07/25/17 09:15 Pantoprazole [ProTONIX IV] 40 mg IVPUSH BID - Plan Plan:: 46 yo female admitted with history of Alcoholic hepatitis, alcohol use disorder and possible Vitamin B6/D toxicity is admitted for nausea, vomiting, abdominal pain presumed secondary to alcoholic hepatitis and UTI #Nausea and Vomiting #Abdominal Pain -differential includes alcoholic hepatitis and/or H. Pylori infection -EGD (06/22/17) & Biopsy from records received from outside facility revealed GERD , gastritis, multiple gastric polyps, portal hypertensive gastropathy, mucosal erosion, negative H. Pylori, no varices -Octreotide scan (07/12/17) from records received from outside facility negative but recommended f/u with MRI with gadolinium -continue Morphine PRN and Zofran scheduled prior to meals #Alcoholic Hepatitis #Alcohol Use Disorder #Hepatomegaly, likely secondary to alcoholic hepatitis #Elevated INR, likely secondary to alcoholic hepatitis #Hypoalbuminemia #Elevated AST, likely secondary to alcoholic hepatitis #Hyperbilirubinemia, likely secondary to alcoholic hepatitis #Elevated Alk Phos, likely secondary to alcoholic hepatitis -EGD from 06/22 negative for varices -continue Thiamine and Folic Acid -Continue CIWA Protocol and Ativan PRN and as per CIWA protocol #H. Pylori -Positive H. Pylori Ag on 07/24 -EGD+Biopsy from 06/22 negative for H. Pylori but revealed Gastritis, gastric erosion, gastric polyps Plan: -obtain H. Pylori Stool Ag -start Protonix BID -hold steroids #Anemia, worsening #Constipation #Macrocytosis #Low Folate level #Elevated B12 level -Hb 10.2 at admission, currently 8.8 -currently on Folic Acid and Thiamine Plan: -administer enema -Stool for Occult Blood -obtain iron, tibc, ferritin, retic count, peripheral smear #UTI -on Rocephin day 3 -continue Roecephin -f/u UC #Vitamin B Toxicity, as per patient #Vitamin D Toxicity, as per patient -patient reports that her GI office contacted and informed her to stop taking Vitamin B and D due to toxic levels -ordered Vitamin B6 & D #Hypokalemia, corrected -continue to monitor code: full diet: regular DVT Prophylaxis: SCD
[2017-07-25] MEDS: Pantoprazole 40 MG Vial IVPUSH SCH (10:05)
[2017-07-25] MEDS ORDERED: Sodium Chloride 0.9% 1,000 ML IV SCH (14:30)
--- NOTE | 2017-07-25 15:55 | US ---
Abdominal sonogram Clinical history: Alcoholic hepatitis and bloody stools Comparison: CT scan June 15, 2017 Findings: The liver remains extremely echogenic and very enlarged as before with no focal masses. The re is a moderate amount of ascites in 4 quadrants right kidney is normal without obstruction. The spl een is enlarged at 14.4 cm. There is still normal hepatopedal flow in the portal vein. The gallbladde r has been surgically removed Impression: Hepatosplenomegaly as before on CT scan with moderate amount of ascites.
[2017-07-25] MEDS ORDERED: Iopamidol 755 MG/ML 500 ML Multipack Bottle IVPUSH ONE (16:07)
--- NOTE | 2017-07-25 16:23 | CT ---
CT scan of the abdomen and pelvis Clinical history: Alcoholic hepatitis bloody stool and anemia There is an colon ultrasound same date Findings: Multiple computed tomographic sections were acquired with intravenous [id number]-370 75 mL Lung bases demonstrate platelike atelectasis at the right lung base posteriorly which is fairly signi ficant. No other pulmonary abnormalities. The graft scanning through the abdomen demonstrates a very enlarged fatty liver without focal abnormalities. The perfusion pattern of the liver is very heteroge nous and is probably related to the extensive degree of fatty infiltrate which has developed. Spleen is mildly enlarged at 13.7 cm. A large amount of ascites throughout the abdomen. The kidneys and retroperitoneum are normal. No specific focal bowel pathology is identified. Scanning through the pelvis demonstrates that the uterus is in situ along with adnexa and there is an extra uterine IUD projected free of the uterus to the right of midline and superiorly Impression: Enlarged right heterogenous liver with diffuse fatty infiltration. Market ascites through out the abdomen. Platelike atelectasis at the right lung base. Extrauterine IUD free of the uterus in the pelvic peritoneum
[2017-07-26] MEDS: cefTRIAXone 1 GM in Sodium Chloride 0.9% 50 ML IV SCH ×2 (01:57→22:53)
[2017-07-26] MEDS: Pantoprazole 40 MG Vial IVPUSH SCH ×3 (01:57→20:56)
--- NOTE | 2017-07-26 05:12 | PCM.PN ---
- General Info Date of Service: 07/26/17 Admission Dx/Problem (Free Text): Admission Diagnosis/Problem Admission Diagnosis/Problem Acute Alcoholic Hepatitis Subjective Update: No overnight events. Denies any further bowel movements since yesterday evening. - Review of Systems General: Reports: Weakness HEENT: Reports: No Symptoms Pulmonary: Reports: No Symptoms Cardiovascular: Reports: No Symptoms Gastrointestinal: Reports: Abdominal Pain, Decreased Appetite, Nausea Musculoskeletal: Reports: No Symptoms Skin: Reports: No Symptoms Neurological: Reports: No Symptoms Psychiatric: Reports: No Symptoms - Patient Data Vitals - Most Recent: Last Vital Signs Temp 37.1 C 07/26/17 04:00 Pulse 101 H 07/26/17 04:00 Resp 17 07/26/17 04:00 BP 102/70 07/26/17 04:00 Pulse Ox 91 L 07/26/17 04:00 Weight - Most Recent: 50.7 kg I&O - Last 24 Hours: Intake & Output 07/25/17 07/25/17 07/26/17 14:59 22:59 06:59 Intake Total 120 1039 Output Total 250 Balance 120 789 Lab Results Last 24 Hours: Laboratory Results - last 24 hr 07/25/17 07/25/17 07/25/17 Range/Units 05:42 05:42 05:42 WBC 10.28 (4.0-11.0) K/uL RBC 2.73 L (4.30-5.90) M/uL Hgb 8.8 L (12.0-16.0) g/dL Hct 27.8 L (36.0-46.0) % MCV 101.8 H (80.0-98.0) fL MCH 32.2 H (27.0-32.0) pg MCHC 31.7 (31.0-37.0) g/dL RDW Std Deviation 73.3 H (28.0-62.0) fl RDW Coeff of Concetta 20 H (11.0-15.0) % Plt Count 196 (150-400) K/uL MPV 9.50 (7.40-12.00) fL Neut % (Auto) 72.3 (48.0-80.0) % Lymph % (Auto) 18.0 (16.0-40.0) % Mccreary % (Auto) 7.1 (0.0-15.0) % Eos % (Auto) 2.2 (0.0-7.0) % Baso % (Auto) 0.4 (0.0-1.5) % Neut # (Auto) 7.4 H (1.4-5.7) K/uL Lymph # (Auto) 1.9 (0.6-2.4) K/uL Mccreary # (Auto) 0.7 (0.0-0.8) K/uL Eos # (Auto) 0.2 (0.0-0.7) K/uL Baso # (Auto) 0.0 (0.0-0.1) K/uL Nucleated RBC % 0.0 /100WBC Nucleated RBCs # 0 K/uL Smear Path Review Absolute Retic (20-80) K/uL Percent Retic (0.5-1.5) % Immature Retic Fraction % INR 1.73 Sodium 136 (136-145) mmol/L Potassium 3.5 (3.5-5.1) mmol/L Chloride 98 (98-107) mmol/L Carbon Dioxide 32.7 H (21.0-32.0) mmol/L BUN 6 L (7.0-18.0) mg/dL Creatinine 0.7 (0.6-1.0) mg/dL Est Cr Clr Drug Dosing 80.27 mL/min Estimated GFR (MDRD) > 60.0 ml/min Glucose 87 (74-106) mg/dL Calcium 8.0 L (8.5-10.1) mg/dL Phosphorus 2.4 L (2.6-4.7) mg/dL Magnesium 2.0 (1.5-2.0) mg/dL Iron (50-175) ug/dL TIBC (250-450) ug/dL % Saturation (20-55) % Ferritin (8-252) ng/mL Total Bilirubin 9.1 H (0.2-1.0) mg/dL AST 126 H (15-37) IU/L ALT 29 (14-63) IU/L Alkaline Phosphatase 249 H (46-116) U/L Total Protein 6.7 (6.4-8.2) g/dL Albumin 1.9 L (3.4-5.0) g/dL Globulin 4.8 H (2.0-3.5) g/dL Albumin/Globulin Ratio 0.4 L (1.3-2.8) Folate (8.60-58.90) ng/mL 07/25/17 07/25/17 07/25/17 Range/Units 05:42 05:42 08:05 WBC (4.0-11.0) K/uL RBC 2.76 L (4.30-5.90) M/uL Hgb (12.0-16.0) g/dL Hct (36.0-46.0) % MCV (80.0-98.0) fL MCH (27.0-32.0) pg MCHC (31.0-37.0) g/dL RDW Std Deviation (28.0-62.0) fl RDW Coeff of Concetta (11.0-15.0) % Plt Count (150-400) K/uL MPV (7.40-12.00) fL Neut % (Auto) (48.0-80.0) % Lymph % (Auto) (16.0-40.0) % Mccreary % (Auto) (0.0-15.0) % Eos % (Auto) (0.0-7.0) % Baso % (Auto) (0.0-1.5) % Neut # (Auto) (1.4-5.7) K/uL Lymph # (Auto) (0.6-2.4) K/uL Mccreary # (Auto) (0.0-0.8) K/uL Eos # (Auto) (0.0-0.7) K/uL Baso # (Auto) (0.0-0.1) K/uL Nucleated RBC % /100WBC Nucleated RBCs # K/uL Smear Path Review SENT TO PATHOLOGY Absolute Retic 89.10 H (20-80) K/uL Percent Retic 3.2 H (0.5-1.5) % Immature Retic Fraction 24 % INR Sodium (136-145) mmol/L Potassium (3.5-5.1) mmol/L Chloride (98-107) mmol/L Carbon Dioxide (21.0-32.0) mmol/L BUN (7.0-18.0) mg/dL Creatinine (0.6-1.0) mg/dL Est Cr Clr Drug Dosing mL/min Estimated GFR (MDRD) ml/min Glucose (74-106) mg/dL Calcium (8.5-10.1) mg/dL Phosphorus (2.6-4.7) mg/dL Magnesium (1.5-2.0) mg/dL Iron 51 (50-175) ug/dL TIBC 116 L (250-450) ug/dL % Saturation 43.97 (20-55) % Ferritin 118 (8-252) ng/mL Total Bilirubin (0.2-1.0) mg/dL AST (15-37) IU/L ALT (14-63) IU/L Alkaline Phosphatase (46-116) U/L Total Protein (6.4-8.2) g/dL Albumin (3.4-5.0) g/dL Globulin (2.0-3.5) g/dL Albumin/Globulin Ratio (1.3-2.8) Folate 6.10 L (8.60-58.90) ng/mL 07/25/17 Range/Units 16:10 WBC (4.0-11.0) K/uL RBC (4.30-5.90) M/uL Hgb 8.8 L (12.0-16.0) g/dL Hct 27.3 L (36.0-46.0) % MCV (80.0-98.0) fL MCH (27.0-32.0) pg MCHC (31.0-37.0) g/dL RDW Std Deviation (28.0-62.0) fl RDW Coeff of Concetta (11.0-15.0) % Plt Count (150-400) K/uL MPV (7.40-12.00) fL Neut % (Auto) (48.0-80.0) % Lymph % (Auto) (16.0-40.0) % Mccreary % (Auto) (0.0-15.0) % Eos % (Auto) (0.0-7.0) % Baso % (Auto) (0.0-1.5) % Neut # (Auto) (1.4-5.7) K/uL Lymph # (Auto) (0.6-2.4) K/uL Mccreary # (Auto) (0.0-0.8) K/uL Eos # (Auto) (0.0-0.7) K/uL Baso # (Auto) (0.0-0.1) K/uL Nucleated RBC % /100WBC Nucleated RBCs # K/uL Smear Path Review Absolute Retic (20-80) K/uL Percent Retic (0.5-1.5) % Immature Retic Fraction % INR Sodium (136-145) mmol/L Potassium (3.5-5.1) mmol/L Chloride (98-107) mmol/L Carbon Dioxide (21.0-32.0) mmol/L BUN (7.0-18.0) mg/dL Creatinine (0.6-1.0) mg/dL Est Cr Clr Drug Dosing mL/min Estimated GFR (MDRD) ml/min Glucose (74-106) mg/dL Calcium (8.5-10.1) mg/dL Phosphorus (2.6-4.7) mg/dL Magnesium (1.5-2.0) mg/dL Iron (50-175) ug/dL TIBC (250-450) ug/dL % Saturation (20-55) % Ferritin (8-252) ng/mL Total Bilirubin (0.2-1.0) mg/dL AST (15-37) IU/L ALT (14-63) IU/L Alkaline Phosphatase (46-116) U/L Total Protein (6.4-8.2) g/dL Albumin (3.4-5.0) g/dL Globulin (2.0-3.5) g/dL Albumin/Globulin Ratio (1.3-2.8) Folate (8.60-58.90) ng/mL Maninder Results Last 24 Hours: Microbiology 07/25/17 14:28 Stool Occult Blood (MANINDER) - Final Stool / Feces POSITIVE OCCULT BLOOD 07/23/17 21:36 Urine Culture - Final Urine, Bladder MIXED SAUNDRA >100,000 CFU/ML Med Orders - Current: Current Medications Folic Acid (Folic Acid) 1 mg SUBCUT DAILY [facility] Last Admin: 07/25/17 08:47 Dose: 1 mg Ceftriaxone Sodium 1 gm/ (Sodium Chloride) 50 mls @ 100 mls/hr IV Q24H [facility] Last Admin: 07/26/17 01:57 Dose: Not Given Sodium Chloride (Normal Saline) 1,000 mls @ 75 mls/hr IV ASDIRECTED [facility] Last Admin: 07/25/17 16:34 Dose: 75 mls/hr Lorazepam (Ativan) 1 mg IVPUSH Q4H PRN PRN Reason: Agitation Last Admin: 07/25/17 09:59 Dose: 1 mg Morphine Sulfate (Morphine) 2 mg IVPUSH Q3H PRN PRN Reason: pain Last Admin: 07/25/17 16:33 Dose: 2 mg Ondansetron HCl (Zofran) 4 mg IVPUSH Q3H PRN PRN Reason: Nausea/Vomiting Last Admin: 07/25/17 00:25 Dose: 4 mg Ondansetron HCl (Zofran) 4 mg IVPUSH ACBREAKFAST [facility] Last Admin: 07/25/17 07:29 Dose: Not Given Ondansetron HCl (Zofran) 4 mg IVPUSH ACDINNER [facility] Last Admin: 07/25/17 16:33 Dose: 4 mg Ondansetron HCl (Zofran) 4 mg IVPUSH ACLUNCH [facility] Last Admin: 07/25/17 12:21 Dose: 4 mg Pantoprazole Sodium (Protonix Iv) 40 mg IVPUSH BID [facility] Last Admin: 07/26/17 01:57 Dose: Not Given Thiamine HCl (Vitamin B-1) 100 mg IV DAILY [facility] Last Admin: 07/25/17 08:46 Dose: 100 mg Discontinued Medications Ceftriaxone Sodium (Rocephin) 1,000 mg IVPUSH Q24H [facility] Sodium Chloride (Normal Saline) 1,000 mls @ 125 mls/hr IV STAT ONE Stop: 07/23/17 23:21 Last Admin: 07/23/17 16:00 Dose: 125 mls/hr Potassium Chloride/Sodium Chloride (Normal Saline With 40 Meq Kcl) 1,000 mls @ 125 mls/hr IV ASDIRECTED ONE Stop: 07/24/17 02:47 Last Admin: 07/23/17 19:02 Dose: 125 mls/hr Ceftriaxone Sodium 1,000 mg/ (Sodium Chloride) 50 mls @ 200 mls/hr IV Q24H [facility] Last Admin: 07/23/17 23:04 Dose: 200 mls/hr Magnesium Sulfate 2 gm/ Premix 50 mls @ 50 mls/hr IV ONETIME ONE Stop: 07/24/17 09:01 Last Admin: 07/24/17 08:29 Dose: 50 mls/hr Iopamidol (Isovue Multipack-370 (76%)) 75 ml IVPUSH ONETIME ONE Stop: 07/25/17 16:08 Last Admin: 07/25/17 16:09 Dose: 75 ml Morphine Sulfate (Morphine) 4 mg IVPUSH ONETIME ONE Stop: 07/23/17 15:49 Last Admin: 07/23/17 16:25 Dose: 4 mg Ondansetron HCl (Zofran) 4 mg IVPUSH ONETIME ONE Stop: 07/23/17 15:49 Last Admin: 07/23/17 16:25 Dose: 4 mg Pantoprazole Sodium (Protonix) 40 mg PO BEDTIME SHAKIRA Last Admin: 07/24/17 20:52 Dose: 40 mg Pantoprazole Sodium (Protonix) 40 mg PO BID [facility] Last Admin: 07/25/17 10:21 Dose: Not Given Polyethylene Glycol (Miralax) 17 gm PO ONETIME ONE Stop: 07/25/17 08:56 Last Admin: 07/25/17 10:21 Dose: Not Given Potassium Chloride (Klor-Con M20) 40 meq PO NOW STA Stop: 07/23/17 16:54 Last Admin: 07/23/17 17:15 Dose: 40 meq Potassium Chloride (Klor-Con M20) 20 meq PO ONETIME ONE Stop: 07/23/17 22:49 Last Admin: 07/23/17 23:05 Dose: 20 meq - Exam General: Alert, Oriented, Cooperative, No Acute Distress HEENT: Pupils Equal, Pupils Reactive, Scleral Icterus Neck: Supple Lungs: Clear to Auscultation, Normal Respiratory Effort Cardiovascular: Regular Rate, Regular Rhythm GI/Abdominal Exam: Normal Bowel Sounds, Distended, Tender, Hepatomegaly Back Exam: Normal Inspection Extremities: Non-Tender, No Pedal Edema Skin: Warm, Dry, Intact Neurological: No New Focal Deficit Psy/Mental Status: Alert, Normal Affect, Normal Mood - Problem List Review Problem List Initiated/Reviewed/Updated: Yes - My Orders Last 24 Hours: My Active Orders 07/25/17 07:00 Ondansetron [Zofran] 4 mg IVPUSH ACBREAKFAST 07/25/17 09:11 Enema [RC] ASDIRECTED 07/25/17 09:15 Pantoprazole [ProTONIX IV] 40 mg IVPUSH BID 07/25/17 14:28 OCCULT BLOOD DIAGNOSTIC [OP] Routine 07/25/17 14:30 Sodium Chloride 0.9% [Normal Saline] 1,000 ml IV ASDIRECTED 07/25/17 14:42 Notify Provider Consults [RC] ASDIRECTED Consult to Physician [CONS] Routine 07/25/17 Dinner Nothing per Oral Now Diet [DIET] 07/26/17 00:00 HEMOGLOBIN/HEMATOCRIT,HH [HEME] Routine 07/26/17 13:00 HEMOGLOBIN/HEMATOCRIT,HH [HEME] Q8H 07/26/17 21:00 HEMOGLOBIN/HEMATOCRIT,HH [HEME] Q8H - Plan Plan:: #BRBPR #Acute Blood Loss Anemia #Macrocytic Anemia #Low Folate level #Elevated B12 level -Patient had BM consisting of bright red blood. Visible blood in stool. +FOBT -Hb dropped from 8.8 to 8.2 over past 8 hours -Anemia likely mixed, Macrocytic and Acute Blood loss -MCV increased, Iron normal, TIBC low, ferritin normal, RDW increased, Retic cnt increased, P smear nonspecific -on Protonix 40 mg IV BID -CT Abdomen-Pelvis reveals enlarged liver with diffuse fatty infiltration and splenomegaly -US RUQ consistent with advanced liver disease -gen surg consulted, rec's treating H. Pylori, Continuing monitoring Hb and transferring to higher level facility for EGD/colonoscopy if blood loss continues due to comorbidities Plan: -NPO -continue IVF -H&H Q8H, transfuse pRBC for Hb under 8 -continue Protonix 40 mg IV BID #H. Pylori -Positive H. Pylori Ag on 07/24 -EGD+Biopsy from 06/22 negative for H. Pylori but revealed Gastritis, gastric erosion, gastric polyps Plan: -f/u H. Pylori Stool Ag -continue Protonix BID -start Clarithromycin 500 mg BID and Amoxicillin 1 gm BID (day 03/06) #Alcoholic Hepatitis #Alcohol Use Disorder #Hepatosplenomegaly, likely secondary to alcoholic hepatitis #Coagulopathy, likely secondary to alcoholic hepatitis #Hypoalbuminemia #Elevated AST, likely secondary to alcoholic hepatitis #Hyperbilirubinemia, likely secondary to alcoholic hepatitis #Elevated Alk Phos, likely secondary to alcoholic hepatitis -EGD from 06/22 negative for varices -continue Thiamine and Folic Acid -Continue CIWA Protocol and Ativan PRN and as per CIWA protocol -continue to monitor INR and Platelets -holding steroids due to ongoing UTI and possible H. Pylori infection #Nausea and Vomiting #Abdominal Pain -differential includes alcoholic hepatitis and/or H. Pylori infection -EGD (06/22/17) & Biopsy from records received from outside facility revealed GERD , gastritis, multiple gastric polyps, portal hypertensive gastropathy, mucosal erosion, negative H. Pylori, no varices -Octreotide scan (07/12/17) from records received from outside facility negative but recommended f/u with MRI with gadolinium -continue Morphine PRN and Zofran scheduled prior to meals #Extrauterine IUD -seen on CT Abdomen-Pelvis -as per Dr. Garibay, OB-Dock Worker who placed and Eshure coil in her tube, the other tube was block and she suspect that this is why it look extrauterine on CT scan. She rec's f/u US as out-patient #UTI -on Rocephin day 4 -continue Roecephin -f/u UC #Vitamin B Toxicity, as per patient #Vitamin D Toxicity, as per patient -patient reports that her GI office contacted and informed her to stop taking Vitamin B and D due to toxic levels -ordered Vitamin B6 & D #Hypokalemia -replace and monitor code: full diet: regular DVT Prophylaxis: SCD
[2017-07-26] MEDS: Morphine 2 MG/ML Syringe IVPUSH PRN ×4 (06:08→22:51)
[2017-07-26] MEDS: Ondansetron 4 MG/2 ML SDV IVPUSH PRN ×4 (06:08→22:50)
[2017-07-26 06:09] LABS: CHLORIDE,CL 99 mmol/L (98-107); SODIUM,NA 136 mmol/L (136-145)
[2017-07-26] MEDS: Ondansetron 4 MG/2 ML SDV IVPUSH SCH (06:55)
--- NOTE | 2017-07-26 06:58 | PCM.CONS ---
H&P History of Present Illness - General Date of Service: 07/26/17 Admit Problem/Dx: Admission Diagnosis/Problem Admission Diagnosis/Problem Acute Alcoholic Hepatitis Source of Information: Patient History Limitations: Reports: No Limitations - History of Present Illness Initial Comments - Free Text/Narative: Patient is a 46 year old female who presented with complaints of generalized abdominal pain, ascities, nausea and vomiting. She does have a history of ascites due to fatty liver, and receives care in [place] with Dr Nguyen and [facility]. She had paracentesis approximately 3-4 weeks ago. She has been undergoing further work up for a "pancreatic mass". She was admitted to the medicine service for further cares. She was diagnosed with a UTI. She has had irregular bowel movements. She c/o bright red bloody stool yesterday. This was sent for fecal occult blood testing and was positive. Her H. pylori antigen test was positive. She c/o nausea and vomiting. The vomit appears clear and yellow. She has a history of GERD. Her hgb has trended down from 10.2 on admission to 8.2 this morning. She has been tachycardic but this appears improved this morning. She is experiencing menses at this time. She was still drinking earlier this month. SHe had a CT that showed hepatosplenomegally and this was confirmed on abdominal US. She has moderate ascites. She also has "plate like atelectasis" of the right lower lobe and her Esure device is outside the uterus. I am not sure of the significance of that. It should be located in her fallopian tube. abdomen Pain Score (Numeric/FACES): 9 - Related Data Allergies/Adverse Reactions: Allergies Allergy/AdvReac Type Severity Reaction Status Date / Time No Known Allergies Allergy Verified 07/23/17 15:37 Home Medications: Home Meds Esomeprazole [NexIUM] 40 mg PO DAILY 07/23/17 [History] Past Medical History Other Respiratory History: Reports 30 yr history of smoking, Gastrointestinal History: Reports: GERD, Other (See Below) Other Gastrointestinal History: Abdominal pain, Heartburn/GERD. recent paracentesis [employer]ER History: Reports: - Infectious Disease History Infectious Disease History: Reports: None - Past Surgical History HEENT Surgical History: Reports: Tonsillectomy GI Surgical History: Reports: Appendectomy, Cholecystectomy Female Surgical History: Reports: Tubal Ligation (ESURE device) Other Musculoskeletal Surgeries/Procedures:: Bunionectomy Left with screws Social & Family History - Family History Family Medical History: Noncontributory - Tobacco Use Smoking Status *Q: Former Smoker Years of Tobacco use: 30 Used Tobacco, but Quit: Yes Month/Year Tobacco Last Used: a month ago- Kim - Caffeine Use Caffeine Use: Reports: Coffee - Recreational Drug Use Recreational Drug Use: No H&P Review of Systems - Review of Systems: Review Of Systems: ROS reveals no pertinent complaints other than HPI. Exam - Exam Exam: See Below - Vital Signs Vital Signs: Last Vital Signs Temp 37.1 C 07/26/17 04:00 Pulse 101 H 07/26/17 04:00 Resp 17 07/26/17 04:00 BP 102/70 07/26/17 04:00 Pulse Ox 91 L 07/26/17 04:00 Weight: 50.7 kg - Exam General: Alert, Oriented, Cooperative HEENT: Conjunctiva Clear, Posterior Pharynx Clear, Pupils Equal Neck: Supple, Trachea Midline Lungs: Clear to Auscultation, Normal Respiratory Effort, Decreased Breath Sounds (to right lower lung ) Cardiovascular: Regular Rate, Regular Rhythm, Tachycardia (mild) GI/Abdominal Exam: Normal Bowel Sounds, Soft, Non-Tender, Distended (due to ascites). No: Guarding, Rigid, Rebound (Female) Exam: Normal External Exam Rectal (Female) Exam: Normal Exam, Normal Rectal Tone, Other (no stool in rectal vault. No blood on my glove after EMERALD) Extremities: Normal Range of Motion, No Pedal Edema Skin: Warm, Dry, Intact Neuro Extensive - Mental Status: Alert, Oriented x3 Psychiatric: Alert, Normal Affect, Normal Mood - Patient Data Lab Results Last 24 hrs: Laboratory Results - last 24 hr 07/25/17 07/25/17 07/25/17 Range/Units 05:42 05:42 08:05 WBC (4.0-11.0) K/uL RBC 2.76 L (4.30-5.90) M/uL Hgb (12.0-16.0) g/dL Hct (36.0-46.0) % MCV (80.0-98.0) fL MCH (27.0-32.0) pg MCHC (31.0-37.0) g/dL RDW Std Deviation (28.0-62.0) fl RDW Coeff of Concetta (11.0-15.0) % Plt Count (150-400) K/uL MPV (7.40-12.00) fL Neut % (Auto) (48.0-80.0) % Lymph % (Auto) (16.0-40.0) % Bleckley % (Auto) (0.0-15.0) % Eos % (Auto) (0.0-7.0) % Baso % (Auto) (0.0-1.5) % Neut # (Auto) (1.4-5.7) K/uL Lymph # (Auto) (0.6-2.4) K/uL Bleckley # (Auto) (0.0-0.8) K/uL Eos # (Auto) (0.0-0.7) K/uL Baso # (Auto) (0.0-0.1) K/uL Nucleated RBC % /100WBC Nucleated RBCs # K/uL Smear Path Review SENT TO PATHOLOGY Absolute Retic 89.10 H (20-80) K/uL Percent Retic 3.2 H (0.5-1.5) % Immature Retic Fraction 24 % INR Sodium (136-145) mmol/L Potassium (3.5-5.1) mmol/L Chloride (98-107) mmol/L Carbon Dioxide (21.0-32.0) mmol/L BUN (7.0-18.0) mg/dL Creatinine (0.6-1.0) mg/dL Est Cr Clr Drug Dosing mL/min Estimated GFR (MDRD) ml/min Glucose (74-106) mg/dL Calcium (8.5-10.1) mg/dL Phosphorus (2.6-4.7) mg/dL Magnesium (1.5-2.0) mg/dL Iron 51 (50-175) ug/dL TIBC 116 L (250-450) ug/dL % Saturation 43.97 (20-55) % Ferritin 118 (8-252) ng/mL Total Bilirubin (0.2-1.0) mg/dL AST (15-37) IU/L ALT (14-63) IU/L Alkaline Phosphatase (46-116) U/L Total Protein (6.4-8.2) g/dL Albumin (3.4-5.0) g/dL Globulin (2.0-3.5) g/dL Albumin/Globulin Ratio (1.3-2.8) Folate 6.10 L (8.60-58.90) ng/mL 07/25/17 07/26/17 07/26/17 Range/Units 16:10 05:00 05:00 WBC 9.51 (4.0-11.0) K/uL RBC 2.50 L (4.30-5.90) M/uL Hgb 8.8 L 8.2 L (12.0-16.0) g/dL Hct 27.3 L 25.7 L (36.0-46.0) % MCV 102.8 H (80.0-98.0) fL MCH 32.8 H (27.0-32.0) pg MCHC 31.9 (31.0-37.0) g/dL RDW Std Deviation 73.5 H (28.0-62.0) fl RDW Coeff of Concetta 20 H (11.0-15.0) % Plt Count 194 (150-400) K/uL MPV 9.60 (7.40-12.00) fL Neut % (Auto) 69.3 (48.0-80.0) % Lymph % (Auto) 18.8 (16.0-40.0) % Bleckley % (Auto) 7.2 (0.0-15.0) % Eos % (Auto) 3.9 (0.0-7.0) % Baso % (Auto) 0.8 (0.0-1.5) % Neut # (Auto) 6.6 H (1.4-5.7) K/uL Lymph # (Auto) 1.8 (0.6-2.4) K/uL Bleckley # (Auto) 0.7 (0.0-0.8) K/uL Eos # (Auto) 0.4 (0.0-0.7) K/uL Baso # (Auto) 0.1 (0.0-0.1) K/uL Nucleated RBC % 0.0 /100WBC Nucleated RBCs # 0 K/uL Smear Path Review Absolute Retic (20-80) K/uL Percent Retic (0.5-1.5) % Immature Retic Fraction % INR 1.80 Sodium (136-145) mmol/L Potassium (3.5-5.1) mmol/L Chloride (98-107) mmol/L Carbon Dioxide (21.0-32.0) mmol/L BUN (7.0-18.0) mg/dL Creatinine (0.6-1.0) mg/dL Est Cr Clr Drug Dosing mL/min Estimated GFR (MDRD) ml/min Glucose (74-106) mg/dL Calcium (8.5-10.1) mg/dL Phosphorus (2.6-4.7) mg/dL Magnesium (1.5-2.0) mg/dL Iron (50-175) ug/dL TIBC (250-450) ug/dL % Saturation (20-55) % Ferritin (8-252) ng/mL Total Bilirubin (0.2-1.0) mg/dL AST (15-37) IU/L ALT (14-63) IU/L Alkaline Phosphatase (46-116) U/L Total Protein (6.4-8.2) g/dL Albumin (3.4-5.0) g/dL Globulin (2.0-3.5) g/dL Albumin/Globulin Ratio (1.3-2.8) Folate (8.60-58.90) ng/mL 07/26/17 Range/Units 05:00 WBC (4.0-11.0) K/uL RBC (4.30-5.90) M/uL Hgb (12.0-16.0) g/dL Hct (36.0-46.0) % MCV (80.0-98.0) fL MCH (27.0-32.0) pg MCHC (31.0-37.0) g/dL RDW Std Deviation (28.0-62.0) fl RDW Coeff of Concetta (11.0-15.0) % Plt Count (150-400) K/uL MPV (7.40-12.00) fL Neut % (Auto) (48.0-80.0) % Lymph % (Auto) (16.0-40.0) % Bleckley % (Auto) (0.0-15.0) % Eos % (Auto) (0.0-7.0) % Baso % (Auto) (0.0-1.5) % Neut # (Auto) (1.4-5.7) K/uL Lymph # (Auto) (0.6-2.4) K/uL Bleckley # (Auto) (0.0-0.8) K/uL Eos # (Auto) (0.0-0.7) K/uL Baso # (Auto) (0.0-0.1) K/uL Nucleated RBC % /100WBC Nucleated RBCs # K/uL Smear Path Review Absolute Retic (20-80) K/uL Percent Retic (0.5-1.5) % Immature Retic Fraction % INR Sodium 136 (136-145) mmol/L Potassium 2.9 L (3.5-5.1) mmol/L Chloride 99 (98-107) mmol/L Carbon Dioxide 29.9 (21.0-32.0) mmol/L BUN 5 L (7.0-18.0) mg/dL Creatinine 0.6 (0.6-1.0) mg/dL Est Cr Clr Drug Dosing 93.65 mL/min Estimated GFR (MDRD) > 60.0 ml/min Glucose 74 (74-106) mg/dL Calcium 7.5 L (8.5-10.1) mg/dL Phosphorus 2.3 L (2.6-4.7) mg/dL Magnesium 1.8 (1.5-2.0) mg/dL Iron (50-175) ug/dL TIBC (250-450) ug/dL % Saturation (20-55) % Ferritin (8-252) ng/mL Total Bilirubin 7.9 H (0.2-1.0) mg/dL AST 129 H (15-37) IU/L ALT 26 (14-63) IU/L Alkaline Phosphatase 206 H (46-116) U/L Total Protein 6.1 L (6.4-8.2) g/dL Albumin 1.8 L (3.4-5.0) g/dL Globulin 4.3 H (2.0-3.5) g/dL Albumin/Globulin Ratio 0.4 L (1.3-2.8) Folate (8.60-58.90) ng/mL Result Diagrams: 07/26/17 05:00 07/26/17 05:00 Maninder Results Last 24 hrs: Microbiology 07/25/17 14:28 Stool Occult Blood (MANINDER) - Final Stool / Feces POSITIVE OCCULT BLOOD 07/23/17 21:36 Urine Culture - Final Urine, Bladder MIXED SAUNDRA >100,000 CFU/ML Consult PN Assessment/Plan Procedures: Procedures AGENT NOS ASSAY W/OPTIC (06/08/16) ASSAY OF AMYLASE (03/05/14) ASSAY OF LIPASE (03/05/14) CLOSTRIDIUM AG IA (06/08/16) COMPLETE CBC W/AUTO DIFF WBC (06/15/17) COMPREHEN METABOLIC PANEL (06/15/17) CRYPTOSPORIDIUM AG IA (06/08/16) CT ABD & PELV W/CONTRAST (06/15/17) CULTURE AEROBIC IDENTIFY (12/17/13) EGD BIOPSY SINGLE/MULTIPLE (11/13/14) ELECTROCARDIOGRAM TRACING (03/05/14) EMERGENCY DEPT VISIT (06/15/17) EXTREMITY STUDY (05/17/16) GIARDIA AG IA (06/08/16) HELICOBACTER PYLORI ANTIBODY (04/13/16) HEPATOBIL SYST IMAGE W/DRUG (04/11/14) LACTOFERRIN FECAL (QUAL) (06/08/16) LAPAROSCOPIC CHOLECYSTECTOMY (06/12/14) MICROBE SUSCEPTIBLE MANINDER (07/03/15) PROTHROMBIN TIME (06/15/17) ROUTINE VENIPUNCTURE (06/15/17) SPECIMEN FAT STAIN (06/08/16) STOOL CULTR AEROBIC BACT EA (06/08/16) URINALYSIS AUTO W/O SCOPE (03/05/14) URINE BACTERIA CULTURE (07/03/15) URINE CULTURE/COLONY COUNT (04/07/16) URINE TEST (11/13/14) X-RAY UPPER GI DELAY W/O KUB (11/26/14) (1) Ascites SNOMED Code(s): 623089484 Code(s): R18.8 - OTHER ASCITES Current Visit: Yes Qualifiers: Ascites type: other type Qualified Code(s): R18.8 - Other ascites (2) Helicobacter pylori (H. pylori) infection SNOMED Code(s): 976038070 Code(s): A04.8 - OTHER SPECIFIED BACTERIAL INTESTINAL INFECTIONS Current Visit: Yes (3) GI bleeding SNOMED Code(s): 79267792 Code(s): K92.2 - GASTROINTESTINAL HEMORRHAGE, UNSPECIFIED Current Visit: No (4) Liver function tests abnormal SNOMED Code(s): 145961925 Code(s): R79.89 - OTHER SPECIFIED ABNORMAL FINDINGS OF BLOOD CHEMISTRY Current Visit: No Onset Date: 03/05/14 Problem List Initiated/Reviewed/Updated: Yes Plan: Given her liver failure, her bleeding could becoming from rectal or less likely esophageal varices. I did not see any blood on my EMERALD today. She did test positive for H pylori antigen. I would treat her for H pylori infection. She is not a candidate for endoscopy here given her medical issues and if I did find a bleeding source we do not have the resources here to stop the bleeding. If she should continue to have bloody bowel movements associated with ongoing decreases in her hgb I would transfer her to [facility] for further management especially since her GI team is there.
[2017-07-26] MEDS ORDERED: Sodium Chloride 0.9% with KCl 1,000 ML IV ONE (07:30)
[2017-07-26] MEDS: Folic Acid 50 MG/10 ML MDV SUBCUT SCH (08:02)
[2017-07-26] MEDS: Thiamine 200 MG/2 ML MDV IV SCH (08:03)
[2017-07-26] MEDS: Amoxicillin 500 MG Cap PO SCH ×2 (09:48→20:56)
[2017-07-26] MEDS: LORazepam 2 MG/ML SDV IVPUSH PRN (12:43)
--- NOTE | 2017-07-26 12:48 | PCM.SN ---
- Free Text/Narrative Note: Called to start IV on patient. 22g angiocath in left foot. Flushes easily. Taped securely.
[2017-07-27 06:13] LABS: CHLORIDE,CL 99 mmol/L (98-107); SODIUM,NA 136 mmol/L (136-145)
[2017-07-27] MEDS: Morphine 2 MG/ML Syringe IVPUSH PRN ×4 (07:22→21:45)
[2017-07-27] MEDS: Ondansetron 4 MG/2 ML SDV IVPUSH PRN ×4 (07:23→21:47)
[2017-07-27] MEDS ORDERED: Potassium Chloride 20 MEQ Tab.ER PO ONE ×2 (07:29→17:00)
[2017-07-27] MEDS: Amoxicillin 500 MG Cap PO SCH ×2 (08:05→21:47)
[2017-07-27] MEDS: Pantoprazole 40 MG Vial IVPUSH SCH ×2 (08:07→21:47)
[2017-07-27] MEDS: Thiamine 200 MG/2 ML MDV IV SCH (08:10)
[2017-07-27] MEDS: Folic Acid 50 MG/10 ML MDV SUBCUT SCH (08:15)
--- NOTE | 2017-07-27 08:58 | CR ---
Portable chest Clinical history: Difficulty breathing Comparison: None. Findings: There is a shallow inspiration. Cardiomediastinum is normal. There is a left lower lobe inf iltrate and small effusion. Findings are consistent with pneumonia. Vessels are within normal limits allowing for degree of inspiration. Impression: Patchy left lower pneumonia with left pleural effusion
[2017-07-27] MEDS: Furosemide 40 MG/4 ML VIAL IVPUSH SCH ×2 (09:36→14:24)
--- NOTE | 2017-07-27 10:45 | PCM.PN ---
- General Info Date of Service: 07/27/17 Admission Dx/Problem (Free Text): Complains of mild abdominal pain especially when she moves around, and mild shortness of breath. No other concerns. - Review of Systems General: Reports: Other (see hpi) - Patient Data Vitals - Most Recent: Last Vital Signs Temp 36.9 C 07/27/17 07:54 Pulse 106 H 07/27/17 07:54 Resp 17 07/27/17 07:54 BP 104/71 07/27/17 07:54 Pulse Ox 94 L 07/27/17 07:54 Weight - Most Recent: 50.7 kg I&O - Last 24 Hours: Intake & Output 07/26/17 07/27/17 07/27/17 22:59 06:59 14:59 Intake Total 2674 350 Output Total 200 400 Balance 2474 -50 Lab Results Last 24 Hours: Laboratory Results - last 24 hr 07/26/17 07/27/17 07/27/17 Range/Units 16:01 05:25 05:25 WBC 9.22 8.64 (4.0-11.0) K/uL RBC 2.53 L 2.56 L (4.30-5.90) M/uL Hgb 8.3 L 8.4 L (12.0-16.0) g/dL Hct 26.0 L 26.5 L (36.0-46.0) % MCV 102.8 H 103.5 H (80.0-98.0) fL MCH 32.8 H 32.8 H (27.0-32.0) pg MCHC 31.9 31.7 (31.0-37.0) g/dL RDW Std Deviation 73.3 H 73.5 H (28.0-62.0) fl RDW Coeff of Concetta 20 H 20 H (11.0-15.0) % Plt Count 198 205 (150-400) K/uL MPV 9.30 9.60 (7.40-12.00) fL Neut % (Auto) 70.8 68.4 (48.0-80.0) % Lymph % (Auto) 18.3 19.6 (16.0-40.0) % [place] % (Auto) 7.4 7.6 (0.0-15.0) % Eos % (Auto) 3.0 3.9 (0.0-7.0) % Baso % (Auto) 0.5 0.5 (0.0-1.5) % Neut # (Auto) 6.5 H 5.9 H (1.4-5.7) K/uL Lymph # (Auto) 1.7 1.7 (0.6-2.4) K/uL [place] # (Auto) 0.7 0.7 (0.0-0.8) K/uL Eos # (Auto) 0.3 0.3 (0.0-0.7) K/uL Baso # (Auto) 0.1 0.0 (0.0-0.1) K/uL Nucleated RBC % 0.0 0.0 /100WBC Nucleated RBCs # 0 0 K/uL INR 1.90 Sodium (136-145) mmol/L Potassium (3.5-5.1) mmol/L Chloride (98-107) mmol/L Carbon Dioxide (21.0-32.0) mmol/L BUN (7.0-18.0) mg/dL Creatinine (0.6-1.0) mg/dL Est Cr Clr Drug Dosing mL/min Estimated GFR (MDRD) ml/min Glucose (74-106) mg/dL Calcium (8.5-10.1) mg/dL Total Bilirubin (0.2-1.0) mg/dL AST (15-37) IU/L ALT (14-63) IU/L Alkaline Phosphatase (46-116) U/L Total Protein (6.4-8.2) g/dL Albumin (3.4-5.0) g/dL Globulin (2.0-3.5) g/dL Albumin/Globulin Ratio (1.3-2.8) 07/27/17 Range/Units 05:25 WBC (4.0-11.0) K/uL RBC (4.30-5.90) M/uL Hgb (12.0-16.0) g/dL Hct (36.0-46.0) % MCV (80.0-98.0) fL MCH (27.0-32.0) pg MCHC (31.0-37.0) g/dL RDW Std Deviation (28.0-62.0) fl RDW Coeff of Concetta (11.0-15.0) % Plt Count (150-400) K/uL MPV (7.40-12.00) fL Neut % (Auto) (48.0-80.0) % Lymph % (Auto) (16.0-40.0) % [place] % (Auto) (0.0-15.0) % Eos % (Auto) (0.0-7.0) % Baso % (Auto) (0.0-1.5) % Neut # (Auto) (1.4-5.7) K/uL Lymph # (Auto) (0.6-2.4) K/uL [place] # (Auto) (0.0-0.8) K/uL Eos # (Auto) (0.0-0.7) K/uL Baso # (Auto) (0.0-0.1) K/uL Nucleated RBC % /100WBC Nucleated RBCs # K/uL INR Sodium 136 (136-145) mmol/L Potassium 3.3 L (3.5-5.1) mmol/L Chloride 99 (98-107) mmol/L Carbon Dioxide 27.0 (21.0-32.0) mmol/L BUN 6 L (7.0-18.0) mg/dL Creatinine 0.7 (0.6-1.0) mg/dL Est Cr Clr Drug Dosing 80.27 mL/min Estimated GFR (MDRD) > 60.0 ml/min Glucose 78 (74-106) mg/dL Calcium 7.3 L (8.5-10.1) mg/dL Total Bilirubin 7.7 H (0.2-1.0) mg/dL AST 131 H (15-37) IU/L ALT 27 (14-63) IU/L Alkaline Phosphatase 203 H (46-116) U/L Total Protein 6.3 L (6.4-8.2) g/dL Albumin 1.8 L (3.4-5.0) g/dL Globulin 4.5 H (2.0-3.5) g/dL Albumin/Globulin Ratio 0.4 L (1.3-2.8) Med Orders - Current: Current Medications Amoxicillin (Amoxil) 1,000 mg PO BID [facility] Last Admin: 07/27/17 08:05 Dose: 1,000 mg Clarithromycin (Biaxin) 500 mg PO BID [facility] Last Admin: 07/27/17 08:05 Dose: 500 mg Folic Acid (Folic Acid) 1 mg SUBCUT DAILY [facility] Last Admin: 07/27/17 08:15 Dose: 1 mg Furosemide (Lasix) 40 mg IVPUSH BIDDIURETIC [facility] Last Admin: 07/27/17 09:36 Dose: 40 mg Ceftriaxone Sodium 1 gm/ (Sodium Chloride) 50 mls @ 100 mls/hr IV Q24H [facility] Last Admin: 07/26/17 22:53 Dose: 100 mls/hr Lorazepam (Ativan) 1 mg IVPUSH Q4H PRN PRN Reason: Agitation Last Admin: 07/26/17 12:43 Dose: 1 mg Morphine Sulfate (Morphine) 2 mg IVPUSH Q3H PRN PRN Reason: pain Last Admin: 07/27/17 07:22 Dose: 2 mg Ondansetron HCl (Zofran) 4 mg IVPUSH Q3H PRN PRN Reason: Nausea/Vomiting Last Admin: 07/27/17 07:23 Dose: 4 mg Pantoprazole Sodium (Protonix Iv) 40 mg IVPUSH BID [facility] Last Admin: 07/27/17 08:07 Dose: 40 mg Potassium Chloride (Klor-Con M20) 20 meq PO ONETIME ONE Stop: 07/27/17 17:01 Thiamine HCl (Vitamin B-1) 100 mg IV DAILY [facility] Last Admin: 07/27/17 08:10 Dose: 100 mg Discontinued Medications Ceftriaxone Sodium (Rocephin) 1,000 mg IVPUSH Q24H [facility] Sodium Chloride (Normal Saline) 1,000 mls @ 125 mls/hr IV STAT ONE Stop: 07/23/17 23:21 Last Admin: 07/23/17 16:00 Dose: 125 mls/hr Potassium Chloride/Sodium Chloride (Normal Saline With 40 Meq Kcl) 1,000 mls @ 125 mls/hr IV ASDIRECTED ONE Stop: 07/24/17 02:47 Last Admin: 07/23/17 19:02 Dose: 125 mls/hr Ceftriaxone Sodium 1,000 mg/ (Sodium Chloride) 50 mls @ 200 mls/hr IV Q24H [facility] Last Admin: 07/23/17 23:04 Dose: 200 mls/hr Magnesium Sulfate 2 gm/ Premix 50 mls @ 50 mls/hr IV ONETIME ONE Stop: 07/24/17 09:01 Last Admin: 07/24/17 08:29 Dose: 50 mls/hr Sodium Chloride (Normal Saline) 1,000 mls @ 75 mls/hr IV ASDIRECTED [facility] Last Admin: 07/25/17 16:34 Dose: 75 mls/hr Potassium Chloride/Sodium Chloride (Normal Saline With 40 Meq Kcl) 1,000 mls @ 75 mls/hr IV ASDIRECTED ONE Stop: 07/26/17 20:49 Last Admin: 07/26/17 08:04 Dose: 75 mls/hr Iopamidol (Isovue Multipack-370 (76%)) 75 ml IVPUSH ONETIME ONE Stop: 07/25/17 16:08 Last Admin: 07/25/17 16:09 Dose: 75 ml Morphine Sulfate (Morphine) 4 mg IVPUSH ONETIME ONE Stop: 07/23/17 15:49 Last Admin: 07/23/17 16:25 Dose: 4 mg Ondansetron HCl (Zofran) 4 mg IVPUSH ONETIME ONE Stop: 07/23/17 15:49 Last Admin: 07/23/17 16:25 Dose: 4 mg Ondansetron HCl (Zofran) 4 mg IVPUSH ACBREAKFAST [facility] Last Admin: 07/26/17 06:55 Dose: Not Given Ondansetron HCl (Zofran) 4 mg IVPUSH ACDINNER [facility] Last Admin: 07/25/17 16:33 Dose: 4 mg Ondansetron HCl (Zofran) 4 mg IVPUSH ACLUNCH [facility] Last Admin: 07/25/17 12:21 Dose: 4 mg Pantoprazole Sodium (Protonix) 40 mg PO BEDTIME [facility] Last Admin: 07/24/17 20:52 Dose: 40 mg Pantoprazole Sodium (Protonix) 40 mg PO BID [facility] Last Admin: 07/25/17 10:21 Dose: Not Given Polyethylene Glycol (Miralax) 17 gm PO ONETIME ONE Stop: 07/25/17 08:56 Last Admin: 07/25/17 10:21 Dose: Not Given Potassium Chloride (Klor-Con M20) 40 meq PO NOW STA Stop: 07/23/17 16:54 Last Admin: 07/23/17 17:15 Dose: 40 meq Potassium Chloride (Klor-Con M20) 20 meq PO ONETIME ONE Stop: 07/23/17 22:49 Last Admin: 07/23/17 23:05 Dose: 20 meq Potassium Chloride (Klor-Con M20) 40 meq PO ONETIME ONE Stop: 07/27/17 07:30 Last Admin: 07/27/17 08:04 Dose: 40 meq - Exam General: Alert, Oriented HEENT: Pupils Equal, Pupils Reactive, EOMI, Mucous Membr. Moist/[place] Neck: Supple Lungs: Crackles (mild right sided inspiratory crackles at the base of the lung) Cardiovascular: Regular Rate, Regular Rhythm GI/Abdominal Exam: Distended, Tender, Hepatomegaly, Splenomegaly Back Exam: Normal Inspection, Full Range of Motion Extremities: Normal Inspection, Normal Range of Motion, Non-Tender, Normal Capillary Refill, Other (trace edema bilaterally in lower extremities) Skin: Warm, Dry, Intact Wound/Incisions: Healing Well Neurological: No New Focal Deficit Psy/Mental Status: Alert, Normal Affect, Normal Mood - Problem List Review Problem List Initiated/Reviewed/Updated: Yes - Plan Plan:: Assessment: #1. Alcoholic hepatitis #2. Abdominal pain secondary to etoh hepatitis, H. Pylori #3. Shortness of breath - CXR indicates possible L lung pneumonia #4. UTI #5. Transaminitis, hyperbilirubinemia #6. Anemia - stable #7. hypokalemia Plan: #1. Discontinue IV fluids - will start IV lasix for signs of ascites, fluid overload #2. Closely monitor potassium, 40meq given today, will recheck tomorrow AM #3. Continue to treat H. Pylori infection, antibiotics will cover for what was read as a pneumonia that may be atelectasis. #4. Recheck CBC tomorrow AM, ensure hemoglobin is stable prior to discharge. She states that she had minimal blood in her last bowel movement. She has been seen by surgery who recommend transfer if GI bleed worsens.
[2017-07-27] MEDS: cefTRIAXone 1 GM in Sodium Chloride 0.9% 50 ML IV SCH (22:38)
[2017-07-28] MEDS: Morphine 2 MG/ML Syringe IVPUSH PRN ×2 (02:03→06:52)
[2017-07-28] MEDS: Ondansetron 4 MG/2 ML SDV IVPUSH PRN ×3 (02:03→10:08)
[2017-07-28 05:56] LABS: CHLORIDE,CL 96 mmol/L (98-107); SODIUM,NA 133 mmol/L (136-145)
[2017-07-28 07:41] VITALS: BP 97/67
[2017-07-28] MEDS ORDERED: Potassium Chloride 20 MEQ Tab.ER PO ONE (07:53)
[2017-07-28] MEDS: Amoxicillin 500 MG Cap PO SCH (08:21)
[2017-07-28] MEDS: Folic Acid 50 MG/10 ML MDV SUBCUT SCH (08:21)
[2017-07-28] MEDS: Furosemide 40 MG/4 ML VIAL IVPUSH SCH (09:00)
[2017-07-28] MEDS: Pantoprazole 40 MG Vial IVPUSH SCH (10:00)
[2017-07-28] MEDS: Thiamine 200 MG/2 ML MDV IV SCH (10:09)
--- NOTE | 2017-07-28 11:23 | PCM.DCSUM1 ---
Discharge Summary - Hospital Course Free Text/Narrative:: Admission Date: 07/23/2017 Discharge Date: 07/28/2017 Admission Diagnosis: #1. Alcoholic hepatitis #2. Hypokalemia #3. UTI #4. Abdominal pain #5. Nausea Discharge Diagnosis: #1. Alcoholic hepatitis #2. Macrocytic anemia - stable #3. H. Pylori gastritis #4. Hypokalemia #5. Abdominal pain - stable Hospital course: 46F with the above mentioned history presented to the ER on 07/23 with a CC of abdominal pain and nausea. She has been f/u with GI in [place] for ongoing hepatitis for the past few months now. For the majority of her stay, her family was with her who stated that she has been drinking alcohol regularly but has cut down recently. She was admitted for alcoholi hepatitis. She was found to have a drop of her hemoglobin, tested +FOBT and H. Pylori. She was then started on triple therapy for h. Pylori. Steroids for hepatitis were held secondary to concerns for acute GI bleed. Surgery was consulted that recommended a possible EGD as an outpatient, or transfer if she becomes unstable. An EGD w/ biopsy was done on 06/22/2017 here in [place] which was negative for H. Pylori. [place], [place] state that was likely secondary to an incorrect biopsy site rather than a true negative. The patients hemoglobin remained stable however with >8. I did touch base with her GI in [place] who recommended that she be transferred only if she showed signs of an acute bleed so an inpatient scope could be done. This was not the case. Ultimately, she was discharged with a f/u with myself and she is to see GI as per family in 2 weeks. Upon f/u, she should be assessed for fluid status, electrolytes, liver function, ongoing anemia, mental status. Family states that they want to enroll her in an outpatient treatment program for alcoholism. They agree with the plan Discharge Medications: #1. Prednisolone 40mg PO daily x28 days, followed by 2 week prednisolone taper #2. Amoxicillin 500mg PO BID #3. Clarithromycin 500mg PO BID #4. Pantoprazole 40mg PO daily #5. Zofran 4mg q8h PRN nausea #6. Oxycodone 5mg PO q6h PRN pain F/u: Dr. Rincon within 1 week. - Discharge Data Discharge Date: 07/28/17 Discharge Disposition: Home, Self-Care 01 Condition: Stable - Patient Summary/Data Consults: Consultations 07/25/17 14:42 Consult to Physician [CONS] Routine - Patient Instructions Diet: Usual Diet as Tolerated, No Alcoholic Beverages Activity: As Tolerated Notify Provider of: Fever, Increased Pain, Swelling and Redness, Drainage, Nausea and/or Vomiting - Discharge Plan Prescriptions/Med Rec: Amoxicillin 500 mg PO BID 12 Days #24 tab Clarithromycin [Biaxin] 500 mg PO BID 12 Days #24 tablet Ondansetron HCl [Zofran] 4 mg PO Q8H PRN #20 ml PRN Reason: Nausea oxyCODONE 5 mg PO Q6H PRN #20 tab PRN Reason: Pain Pantoprazole [ProTONIX] 40 mg PO DAILY 30 Days #30 tab.cr prednisoLONE [Prednisolone] 40 mg PO DAILY #375 ml Home Medications: Home Meds Amoxicillin 500 mg PO BID 12 Days #24 tab 07/28/17 [Rx] Clarithromycin [Biaxin] 500 mg PO BID 12 Days #24 tablet 07/28/17 [Rx] Ondansetron HCl [Zofran] 4 mg PO Q8H PRN #20 ml 07/28/17 [Rx] Pantoprazole [ProTONIX] 40 mg PO DAILY 30 Days #30 tab.cr 07/28/17 [Rx] oxyCODONE 5 mg PO Q6H PRN #20 tab 07/28/17 [Rx] prednisoLONE [Prednisolone] 40 mg PO DAILY #375 ml 07/28/17 [Rx] Patient Handouts: Ondansetron tablets, Amoxicillin capsules or tablets, Alcoholic Hepatitis, Prednisolone tablets, Pantoprazole tablets, Clarithromycin tablets, What You Need to Know About Alcohol Abuse and Dependence, Youth Referrals: César Rincon MD [Resident] - 08/02/17 2:30 am - Patient Data Vitals - Most Recent: Last Vital Signs Temp 36.7 C 07/28/17 07:40 Pulse 100 07/28/17 07:40 Resp 20 07/28/17 07:40 BP 97/67 07/28/17 07:40 Pulse Ox 95 07/28/17 08:00 Weight - Most Recent: 52.254 kg I&O - Last 24 hours: Intake & Output 07/27/17 07/28/17 07/28/17 22:59 06:59 14:59 Intake Total 900 550 Output Total 2520 600 Balance -1620 -50 Lab Results - Last 24 hrs: Laboratory Results - last 24 hr 07/28/17 07/28/17 Range/Units 05:16 05:16 WBC 8.61 (4.0-11.0) K/uL RBC 2.54 L (4.30-5.90) M/uL Hgb 8.5 L (12.0-16.0) g/dL Hct 25.8 L (36.0-46.0) % MCV 101.6 H (80.0-98.0) fL MCH 33.5 H (27.0-32.0) pg MCHC 32.9 (31.0-37.0) g/dL RDW Std Deviation 73.7 H (28.0-62.0) fl RDW Coeff of Concetta 20 H (11.0-15.0) % Plt Count 201 (150-400) K/uL MPV 9.30 (7.40-12.00) fL Neut % (Auto) 64.1 (48.0-80.0) % Lymph % (Auto) 22.1 (16.0-40.0) % [place] % (Auto) 9.2 (0.0-15.0) % Eos % (Auto) 4.1 (0.0-7.0) % Baso % (Auto) 0.5 (0.0-1.5) % Neut # (Auto) 5.5 (1.4-5.7) K/uL Lymph # (Auto) 1.9 (0.6-2.4) K/uL [place] # (Auto) 0.8 (0.0-0.8) K/uL Eos # (Auto) 0.4 (0.0-0.7) K/uL Baso # (Auto) 0.0 (0.0-0.1) K/uL Nucleated RBC % 0.0 /100WBC Nucleated RBCs # 0 K/uL Sodium 133 L (136-145) mmol/L Potassium 3.3 L (3.5-5.1) mmol/L Chloride 96 L (98-107) mmol/L Carbon Dioxide 30.2 (21.0-32.0) mmol/L BUN 5 L (7.0-18.0) mg/dL Creatinine 0.7 (0.6-1.0) mg/dL Est Cr Clr Drug Dosing 80.27 mL/min Estimated GFR (MDRD) > 60.0 ml/min Glucose 85 (74-106) mg/dL Calcium 7.5 L (8.5-10.1) mg/dL Total Bilirubin 7.3 H (0.2-1.0) mg/dL AST 128 H (15-37) IU/L ALT 25 (14-63) IU/L Alkaline Phosphatase 193 H (46-116) U/L Total Protein 6.2 L (6.4-8.2) g/dL Albumin 1.8 L (3.4-5.0) g/dL Globulin 4.4 H (2.0-3.5) g/dL Albumin/Globulin Ratio 0.4 L (1.3-2.8) Med Orders - Current: Current Medications Amoxicillin (Amoxil) 1,000 mg PO BID [facility] Last Admin: 07/28/17 08:21 Dose: 1,000 mg Clarithromycin (Biaxin) 500 mg PO BID [facility] Last Admin: 07/28/17 08:19 Dose: 500 mg Folic Acid (Folic Acid) 1 mg SUBCUT DAILY [facility] Last Admin: 07/28/17 08:21 Dose: 1 mg Furosemide (Lasix) 40 mg IVPUSH BIDDIURETIC [facility] Last Admin: 07/28/17 09:00 Dose: 40 mg Ceftriaxone Sodium 1 gm/ (Sodium Chloride) 50 mls @ 100 mls/hr IV Q24H [facility] Last Admin: 07/27/17 22:38 Dose: 100 mls/hr Lorazepam (Ativan) 1 mg IVPUSH Q4H PRN PRN Reason: Agitation Last Admin: 07/26/17 12:43 Dose: 1 mg Morphine Sulfate (Morphine) 2 mg IVPUSH Q3H PRN PRN Reason: pain Last Admin: 07/28/17 06:52 Dose: 2 mg Ondansetron HCl (Zofran) 4 mg IVPUSH Q3H PRN PRN Reason: Nausea/Vomiting Last Admin: 07/28/17 10:08 Dose: 4 mg Pantoprazole Sodium (Protonix Iv) 40 mg IVPUSH BID [facility] Last Admin: 07/28/17 10:00 Dose: 40 mg Thiamine HCl (Vitamin B-1) 100 mg IV DAILY [facility] Last Admin: 07/28/17 10:09 Dose: 100 mg Discontinued Medications Ceftriaxone Sodium (Rocephin) 1,000 mg IVPUSH Q24H [facility] Sodium Chloride (Normal Saline) 1,000 mls @ 125 mls/hr IV STAT ONE Stop: 07/23/17 23:21 Last Admin: 07/23/17 16:00 Dose: 125 mls/hr Potassium Chloride/Sodium Chloride (Normal Saline With 40 Meq Kcl) 1,000 mls @ 125 mls/hr IV ASDIRECTED ONE Stop: 07/24/17 02:47 Last Admin: 07/23/17 19:02 Dose: 125 mls/hr Ceftriaxone Sodium 1,000 mg/ (Sodium Chloride) 50 mls @ 200 mls/hr IV Q24H [facility] Last Admin: 07/23/17 23:04 Dose: 200 mls/hr Magnesium Sulfate 2 gm/ Premix 50 mls @ 50 mls/hr IV ONETIME ONE Stop: 07/24/17 09:01 Last Admin: 07/24/17 08:29 Dose: 50 mls/hr Sodium Chloride (Normal Saline) 1,000 mls @ 75 mls/hr IV ASDIRECTED [facility] Last Admin: 07/25/17 16:34 Dose: 75 mls/hr Potassium Chloride/Sodium Chloride (Normal Saline With 40 Meq Kcl) 1,000 mls @ 75 mls/hr IV ASDIRECTED ONE Stop: 07/26/17 20:49 Last Admin: 07/26/17 08:04 Dose: 75 mls/hr Iopamidol (Isovue Multipack-370 (76%)) 75 ml IVPUSH ONETIME ONE Stop: 07/25/17 16:08 Last Admin: 07/25/17 16:09 Dose: 75 ml Morphine Sulfate (Morphine) 4 mg IVPUSH ONETIME ONE Stop: 07/23/17 15:49 Last Admin: 07/23/17 16:25 Dose: 4 mg Ondansetron HCl (Zofran) 4 mg IVPUSH ONETIME ONE Stop: 07/23/17 15:49 Last Admin: 07/23/17 16:25 Dose: 4 mg Ondansetron HCl (Zofran) 4 mg IVPUSH ACBREAKFAST [facility] Last Admin: 07/26/17 06:55 Dose: Not Given Ondansetron HCl (Zofran) 4 mg IVPUSH ACDINNER [facility] Last Admin: 07/25/17 16:33 Dose: 4 mg Ondansetron HCl (Zofran) 4 mg IVPUSH ACLUNCH [facility] Last Admin: 07/25/17 12:21 Dose: 4 mg Pantoprazole Sodium (Protonix) 40 mg PO BEDTIME [facility] Last Admin: 07/24/17 20:52 Dose: 40 mg Pantoprazole Sodium (Protonix) 40 mg PO BID [facility] Last Admin: 07/25/17 10:21 Dose: Not Given Polyethylene Glycol (Miralax) 17 gm PO ONETIME ONE Stop: 07/25/17 08:56 Last Admin: 07/25/17 10:21 Dose: Not Given Potassium Chloride (Klor-Con M20) 40 meq PO NOW STA Stop: 07/23/17 16:54 Last Admin: 07/23/17 17:15 Dose: 40 meq Potassium Chloride (Klor-Con M20) 20 meq PO ONETIME ONE Stop: 07/23/17 22:49 Last Admin: 07/23/17 23:05 Dose: 20 meq Potassium Chloride (Klor-Con M20) 40 meq PO ONETIME ONE Stop: 07/27/17 07:30 Last Admin: 07/27/17 08:04 Dose: 40 meq Potassium Chloride (Klor-Con M20) 20 meq PO ONETIME ONE Stop: 07/27/17 17:01 Last Admin: 07/27/17 16:51 Dose: 20 meq Potassium Chloride (Klor-Con M20) 40 meq PO ONETIME ONE Stop: 07/28/17 07:54 Last Admin: 07/28/17 08:21 Dose: 40 meq
== END 2017-07-28 11:10 | disposition home or self-care (01) | DRG 280 ==
LOC: MW.ED 15:11 → MW.MS 16:51 → OBSVTOIN 22:46 → MW.MS 07-25 12:32
PROVIDERS: ADMIT Internal Medicine; ATTEND Internal Medicine
DX: K70.11 Alcoholic hepatitis with ascites (principal); D53.9 Nutritional anemia, unspecified; K29.71 Gastritis, unspecified, with bleeding; B96.81 Helicobacter pylori [H. pylori] as the cause of diseases classified elsewhere; E87.6 Hypokalemia; K21.9 Gastro-esophageal reflux disease without esophagitis; K76.0 Fatty (change of) liver, not elsewhere classified; K86.9 Disease of pancreas, unspecified; R79.89 Other specified abnormal findings of blood chemistry; J18.9 Pneumonia, unspecified organism; N39.0 Urinary tract infection, site not specified; R74.0 Nonspecific elevation of levels of transaminase and lactic acid dehydrogenase [LDH]; E80.6 Other disorders of bilirubin metabolism; R16.2 Hepatomegaly with splenomegaly, not elsewhere classified; Z79.899 Other long term (current) drug therapy; Z87.891 Personal history of nicotine dependence
CPT/HCPCS: 36415; 71045; 71045-26; 74177; 74177-26; 76705; 76705-26; 80053; 81001; 82150; 82247; 82248; 82272; 82306; 82607; 82728; 82746; 83550; 83690; 83735; 84100; 84207; 85014; 85018; 85025; 85045; 85610; 86677; 87086; 88104; 96361; 96374; 96375; 99285-25; A9270-GY; C9113; J0696; J1940; J2060; J2270; J2405; J3411; J3475; J3480; J7040; J7050; Q9967

== ENCOUNTER 2017-08-31 09:50 | Emergency (ER) | payer BC, OTHER ==
--- NOTE | 2017-08-31 10:21 | EDM.PDOC ---
ED HPI GENERAL MEDICAL PROBLEM - General Chief Complaint: Abdominal Pain Stated Complaint: ABD PAIN Time Seen by Provider: 08/31/17 10:09 Source of Information: Reports: Patient History Limitations: Reports: No Limitations - History of Present Illness INITIAL COMMENTS - FREE TEXT/NARRATIVE: HISTORY AND PHYSICAL: History of present illness: Patient is a 46-year-old female who presents to the emergency room today with complaints of chronic abdominal pain. She does see a GI specialist at [facility] in [place] for ongoing hepatitis and does have a primary care doctor at [facility], which she states she sees routinely. Patient states that she plans to be seen at [facility] once she has been alcohol free x 6 months (currently 2 months sober). She is here today as she states that she has been out of her oxycodone for 2+ weeks. She states that she has no new symptoms but would like something for pain management. She denies any fever, chills, chest pain, shortness of breath, nausea, vomiting , diarrhea or constipation. She denies any syncope, change in vision, headache. 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 Review of systems: As per history of present illness and below otherwise all systems reviewed and negative. Past medical history: As per history of present illness and as reviewed below otherwise noncontributory. Surgical history: As per history of present illness and as reviewed below otherwise noncontributory. Social history: No reported history of drug or alcohol abuse. Family history: As per history of present illness and as reviewed below otherwise noncontributory. Physical exam: General: HEENT: Atraumatic, normocephalic, pupils equal and reactive bilaterally, negative for conjunctival pallor. Mild scleral icterus noted bilaterally, mucous membranes moist, throat clear, neck supple, nontender, trachea midline. No drooling or trismus noted. No meningeal signs Lungs: Clear to auscultation, breath sounds equal bilaterally, chest nontender. Heart: S1S2, regular rate and rhythm without overt murmur Abdomen: Soft, nondistended, diffuse tenderness throughout. Negative for masses or hepatosplenomegaly. Negative for costovertebral tenderness. Pelvis: Stable nontender. Genitourinary: Deferred. Rectal: Deferred. Skin: Slight yellow hue. Otherwise intact, warm, dry. No lesions or rashes noted. Extremities: Atraumatic, negative for cords or calf pain. Neurovascular unremarkable. Neuro: Awake, alert, oriented. Cranial nerves II through XII unremarkable. Cerebellum unremarkable. Motor and sensory unremarkable throughout. Exam nonfocal. Notes: Patient was admitted to the hospital on 07/26/2017. During this time she had tested positive for H. pylori and received the antibiotic eradication therapy ( triple therapy). She states that did complete these antibiotics. She requested that I contact Lea, her PCP at [facility]. Lea, ABBI - was contacted (per patient request). Patient had labs drawn on Tuesday. She states that the patient was being managed by Dr. Nguyen at [facility] in [place]. Lea has called out to their facility to help collaborate/ coordinate further care. Lea confirms that the patient has not had any oxycodone in approximately 2 months. She states she is comfortable with the patient receiving a limited amount of oxycodone and she would like to see the patient in clinic later this week for further evaluation and pain management. Associated with the patient. Will do routine lab work at this time. IV fluids and medications given. We'll give her oxycodone No. 15 no refill. Lab results were reviewed and discussed with patient. Lipase is elevated. She has diffuse, non-specific abdominal tenderness. Patient states she does not want any further CT scans or testing. Peter is better from 8.6 down to 4.0. She will follow-up at [facility] clinic later this week as discussed. She denies any further questions or concerns at this time. Diagnostics: CBC, CMP, Amylase, Lipase, H.Pylori, INR Therapeutics: IV fluids, Morphine, Zofran Impression: History of Hepatitis Chronic Abdominal Pain Plan: 1. Please take your medications as prescribed. Your Primary Provider at [facility] will continue to follow up/manage your chronic abdominal pain. She would like you to call [facility] today to set up a follow up appointment for later this week. 2. Clear liquids for the next 1-2 days. [place] diet. 3. Return to the ED as needed as discussed. Definitive disposition and diagnosis as appropriate pending reevaluation and review of above. Duration: Chronic Location: Reports: Abdomen abdominal pain Pain Score (Numeric/FACES): 8 - Related Data Allergies Allergy/AdvReac Type Severity Reaction Status Date / Time No Known Allergies Allergy Verified 08/31/17 10:08 Home Meds: Home Meds Potassium Chloride [Klor-Con 10] 08/31/17 [History] prednisoLONE [Prednisolone] 15 mg PO BID 08/31/17 [History] Past Medical History Other Respiratory History: Reports 30 yr history of smoking, Gastrointestinal History: Reports: GERD, Other (See Below) Other Gastrointestinal History: Abdominal pain, Heartburn/GERD. 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 ED EXAM, GI/ABD - Physical Exam Exam: See Below (See dictation) Course - Vital Signs Last Recorded V/S: Last Vital Signs Temp 98.2 F 08/31/17 10:08 Pulse 111 H 08/31/17 10:08 Resp 20 08/31/17 10:08 BP 116/78 08/31/17 10:08 Pulse Ox 98 08/31/17 10:08 - Orders/Labs/Meds Orders: Active Orders 24 hr Category Date Time Status EKG 12 Lead [EKG Documentation Completion] [RC] STAT Care 08/31/17 10:26 Active Sodium Chloride 0.9% [Normal Saline] 500 ml Med 08/31/17 10:30 Active IV STAT Medication Orders Sodium Chloride (Normal Saline) 500 mls @ 999 mls/hr IV STAT SHAKIRA Last Admin: 08/31/17 10:39 Dose: 999 mls/hr Labs: Laboratory Tests 08/31/17 08/31/17 08/31/17 Range/Units 10:32 10:32 10:32 WBC 10.11 (4.0-11.0) K/uL RBC 2.91 L (4.30-5.90) M/uL Hgb 8.9 L (12.0-16.0) g/dL Hct 27.5 L (36.0-46.0) % MCV 94.5 (80.0-98.0) fL MCH 30.6 (27.0-32.0) pg MCHC 32.4 (31.0-37.0) g/dL RDW Std Deviation 53.8 (28.0-62.0) fl RDW Coeff of Concetta 16 H (11.0-15.0) % Plt Count 148 L (150-400) K/uL MPV 9.80 (7.40-12.00) fL Neut % (Auto) 78.0 (48.0-80.0) % Lymph % (Auto) 14.8 L (16.0-40.0) % [place] % (Auto) 6.7 (0.0-15.0) % Eos % (Auto) 0.4 (0.0-7.0) % Baso % (Auto) 0.1 (0.0-1.5) % Neut # (Auto) 7.9 H (1.4-5.7) K/uL Lymph # (Auto) 1.5 (0.6-2.4) K/uL [place] # (Auto) 0.7 (0.0-0.8) K/uL Eos # (Auto) 0.0 (0.0-0.7) K/uL Baso # (Auto) 0.0 (0.0-0.1) K/uL Nucleated RBC % 0.0 /100WBC Nucleated RBCs # 0 K/uL INR 1.25 Sodium 134 L (136-145) mmol/L Potassium 3.2 L (3.5-5.1) mmol/L Chloride 99 (98-107) mmol/L Carbon Dioxide 27.7 (21.0-32.0) mmol/L BUN 19 H (7.0-18.0) mg/dL Creatinine 0.7 (0.6-1.0) mg/dL Est Cr Clr Drug Dosing 74.02 mL/min Estimated GFR (MDRD) > 60.0 ml/min Glucose 97 (74-106) mg/dL Calcium 9.1 (8.5-10.1) mg/dL Total Bilirubin 4.0 H (0.2-1.0) mg/dL AST 51 H (15-37) IU/L ALT 65 H (14-63) IU/L Alkaline Phosphatase 97 (46-116) U/L Total Protein 6.9 (6.4-8.2) g/dL Albumin 3.0 L (3.4-5.0) g/dL Globulin 3.9 H (2.0-3.5) g/dL Albumin/Globulin Ratio 0.8 L (1.3-2.8) Amylase (25-115) U/L Lipase (73-393) U/L H. pylori IgG Antibody (NEG) 08/31/17 08/31/17 Range/Units 10:32 10:32 WBC (4.0-11.0) K/uL RBC (4.30-5.90) M/uL Hgb (12.0-16.0) g/dL Hct (36.0-46.0) % MCV (80.0-98.0) fL MCH (27.0-32.0) pg MCHC (31.0-37.0) g/dL RDW Std Deviation (28.0-62.0) fl RDW Coeff of Concetta (11.0-15.0) % Plt Count (150-400) K/uL MPV (7.40-12.00) fL Neut % (Auto) (48.0-80.0) % Lymph % (Auto) (16.0-40.0) % [place] % (Auto) (0.0-15.0) % Eos % (Auto) (0.0-7.0) % Baso % (Auto) (0.0-1.5) % Neut # (Auto) (1.4-5.7) K/uL Lymph # (Auto) (0.6-2.4) K/uL [place] # (Auto) (0.0-0.8) K/uL Eos # (Auto) (0.0-0.7) K/uL Baso # (Auto) (0.0-0.1) K/uL Nucleated RBC % /100WBC Nucleated RBCs # K/uL INR Sodium (136-145) mmol/L Potassium (3.5-5.1) mmol/L Chloride (98-107) mmol/L Carbon Dioxide (21.0-32.0) mmol/L BUN (7.0-18.0) mg/dL Creatinine (0.6-1.0) mg/dL Est Cr Clr Drug Dosing mL/min Estimated GFR (MDRD) ml/min Glucose (74-106) mg/dL Calcium (8.5-10.1) mg/dL Total Bilirubin (0.2-1.0) mg/dL AST (15-37) IU/L ALT (14-63) IU/L Alkaline Phosphatase (46-116) U/L Total Protein (6.4-8.2) g/dL Albumin (3.4-5.0) g/dL Globulin (2.0-3.5) g/dL Albumin/Globulin Ratio (1.3-2.8) Amylase 112 (25-115) U/L Lipase 772 H (73-393) U/L H. pylori IgG Antibody NEGATIVE (NEG) Meds: Medications Generic Name Dose Route Start Last Admin Trade Name Freq PRN Reason Stop Dose Admin Sodium Chloride 500 mls @ 999 mls/hr 08/31/17 10:30 08/31/17 10:39 Normal Saline IV 999 mls/hr STAT SHAKIRA Administration Discontinued Medications Generic Name Dose Route Start Last Admin Trade Name Freq PRN Reason Stop Dose Admin Morphine Sulfate 4 mg 08/31/17 10:24 08/31/17 10:49 Morphine IVPUSH 08/31/17 10:25 Not Given ONETIME ONE Morphine Sulfate Confirm 08/31/17 10:30 08/31/17 10:49 Morphine Administered 08/31/17 10:31 Not Given Dose 4 mg .ROUTE .STK-MED ONE Morphine Sulfate 4 mg 08/31/17 10:39 08/31/17 10:40 Morphine IVPUSH 08/31/17 10:40 4 mg ONETIME ONE Administration Ondansetron HCl 4 mg 08/31/17 10:24 08/31/17 10:39 Zofran IVPUSH 08/31/17 10:25 4 mg ONETIME ONE Administration Departure - Departure Time of Disposition: 11:42 Disposition: Home, Self-Care 01 Clinical Impression: Chronic abdominal pain, History of hepatitis - Discharge Information Instructions: Alcoholic Hepatitis, Abdominal Pain, Adult, [id number] Referrals: PCP,None [Primary Care Provider] - Forms: ED Department Discharge Additional Instructions: The following information is given to patients seen in the emergency department who are being discharged to home. This information is to outline your options for follow-up care. We provide all patients seen in our emergency department with a follow-up referral. The need for follow-up, as well as the timing and circumstances, are variable depending upon the specifics of your emergency department visit. If you don't have a primary care physician on staff, we will provide you with a referral. We always advise you to contact your personal physician following an emergency department visit to inform them of the circumstance of the visit and for follow-up with them and/or the need for any referrals to a consulting specialist. The emergency department will also refer you to a specialist when appropriate. This referral assures that you have the opportunity for follow-up care with a specialist. All of these measure are taken in an effort to provide you with optimal care, which includes your follow-up. Under all circumstances we always encourage you to contact your private physician who remains a resource for coordinating your care. When calling for follow-up care, please make the office aware that this follow-up is from your recent emergency room visit. If for any reason you are refused follow-up, please contact the [facility] Emergency Department at and asked to speak to the emergency department charge nurse. [facility] [address] [place] [id number] 1. Please take your medications as prescribed. Your Primary Provider at [facility] will continue to follow up/manage your chronic abdominal pain. She would like you to call [facility] today to set up a follow up appointment for later this week. 2. Clear liquids for the next 1-2 days. [place] diet. 3. Return to the ED as needed as discussed. - My Orders Last 24 Hours: My Active Orders 08/31/17 10:26 EKG 12 Lead [EKG Documentation Completion] [RC] STAT 08/31/17 10:30 Sodium Chloride 0.9% [Normal Saline] 500 ml IV STAT - Assessment/Plan Last 24 Hours: My Active Orders 08/31/17 10:26 EKG 12 Lead [EKG Documentation Completion] [RC] STAT 08/31/17 10:30 Sodium Chloride 0.9% [Normal Saline] 500 ml IV STAT
[2017-08-31] MEDS ORDERED: Morphine 4 MG/ML Syringe IVPUSH ONE (10:24)
[2017-08-31] MEDS ORDERED: Ondansetron 4 MG/2 ML SDV IVPUSH ONE (10:24)
[2017-08-31] MEDS ORDERED: Morphine 2 MG/ML Syringe ONE (10:30)
[2017-08-31] MEDS ORDERED: Sodium Chloride 0.9% 500 ML IV SCH (10:30)
[2017-08-31] MEDS ORDERED: Morphine 2 MG/ML Syringe IVPUSH ONE (10:39)
[2017-08-31 11:34] LABS: CHLORIDE,CL 99 mmol/L (98-107); SODIUM,NA 134 mmol/L (136-145)
[2017-08-31 11:51] VITALS: BP 103/64
== END 2017-08-31 11:50 | disposition home or self-care (01) ==
LOC: MW.ED 09:50
DX: R10.9 Unspecified abdominal pain (principal); G89.29 Other chronic pain; Z86.19 Personal history of other infectious and parasitic diseases
CPT/HCPCS: 36415; 80053; 82150; 83690; 85025; 85610; 86677; 93005; 96361; 96374; 96375; 99284; J2270; J2405; J7040

== ENCOUNTER 2019-03-19 10:29 | Emergency (ER) | payer BC ==
--- NOTE | 2019-03-19 10:49 | EDM.PDOC ---
ED HPI GENERAL MEDICAL PROBLEM - General Stated Complaint: CHEST PAIN Time Seen by Provider: 03/19/19 10:30 Source of Information: Reports: Patient History Limitations: Reports: No Limitations - History of Present Illness INITIAL COMMENTS - FREE TEXT/NARRATIVE: HISTORY AND PHYSICAL: History of present illness: Patient is a 48-year-old female who presents to the ED today with concern of an episode of chest pain that occurred on Tuesday, 3 days ago. Patient states she was just sitting at home when she felt a pinching sensation in the middle of her chest and had some left arm pain. Patient states she also had some nausea and vomiting on Tuesday but did not think anything of the nausea and vomiting as she has end-stage liver disease and this is usual for her. Patient states all of her symptoms resolved after 2 to 3 hours. Patient states she called her family practice provider and was told to come to be evaluated in the ED due to the episode of chest pain on Tuesday. Patient states she has not had returning of the chest pain since Tuesday. Patient denies any symptoms or concerns at this time. 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 Denies any substance use currently. Patient denies fever, chills, chest pain, shortness of breath, or cough. Denies headache, neck stiff ness, change in vision, syncope, or near syncope. Denies nausea, vomiting, abdominal pain, diarrhea, constipation, or dysuria. Has not noted any blood in urine or stool. Patient has been eating and drinking appropriately. Review of systems: As per history of present illness and below otherwise all systems reviewed and negative. Past medical history: As per history of present illness and as reviewed below otherwise noncontributory. Surgical history: As per history of present illness and as reviewed below otherwise noncontributory. Social history: See social history for further information Family history: As per history of present illness and as reviewed below otherwise noncontributory. Physical exam: General: Patient is alert, oriented, and in no acute distress. Patient sitting comfortably on exam table. HEENT: Atraumatic, normocephalic, pupils equal and reactive bilaterally, negative for conjunctival pallor or scleral icterus, mucous membranes moist, TMs normal bilaterally, throat clear, neck supple, nontender, trachea midline. No drooling or trismus noted. No meningeal signs. No hot potato voice noted. Lungs: Clear to auscultation, breath sounds equal bilaterally, chest nontender. Heart: S1S2, regular rate and rhythm without overt murmur Abdomen: Soft, nondistended, nontender. Negative for masses or hepatosplenomegaly. Negative for costovertebral tenderness. Pelvis: Stable nontender. Genitourinary: Deferred. Rectal: Deferred. Skin: Intact, warm, dry. No lesions or rashes noted. Extremities: Atraumatic, negative for cords or calf pain. Neurovascular unremarkable. Neuro: Awake, alert, oriented. Cranial nerves II through XII unremarkable. Cerebellum unremarkable. Motor and sensory unremarkable throughout. Exam nonfocal. Notes: Discussed importance for follow-up with a primary care provider. Voices understanding and is agreeable to plan of care. Denies any further questions or concerns at this time. Diagnostics: CBC, CMP, UA, lipase, EKG, CXR, Troponin Therapeutics: None Prescription: None Impression: H/O chest pain Plan: 1. You can alternate ibuprofen and Tylenol as directed for pain and discomfort. 2. Follow-up with a primary care provider as discussed. Return to the ED as needed and as discussed. Definitive disposition and diagnosis as appropriate pending reevaluation and review of above. - Related Data Allergies Allergy/AdvReac Type Severity Reaction Status Date / Time No Known Allergies Allergy Verified 03/19/19 10:42 Home Meds: Home Meds Lactulose 15 ml PO DAILY 01/06/18 [History] Lidocaine 5% [Lidoderm 5%] 700 mg TOP Q12HR PRN 01/06/18 [History] Spironolactone 50 mg PO DAILY 01/06/18 [History] polyethylene glycoL 3350 [MiraLAX] 17 gm PO DAILY 01/06/18 [History] Past Medical History Other Respiratory History: Reports 30 yr history of smoking, Gastrointestinal History: Reports: GERD, Other (See Below) Other Gastrointestinal History: Abdominal pain, Heartburn/GERD. 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: - Infectious Disease History Infectious Disease History: Reports: None Other Infectious Disease History: alcoholic hep C - Past Surgical History HEENT Surgical History: Reports: Tonsillectomy GI Surgical History: Reports: Appendectomy, Cholecystectomy Other GI Surgeries/Procedures: Liver cirhossis Female Surgical History: Reports: Tubal Ligation Other Musculoskeletal Surgeries/Procedures:: Bunionectomy Left with screws Social & Family History - Family History Family Medical History: Noncontributory - Caffeine Use Caffeine Use: Reports: None ED ROS GENERAL - Review of Systems Review Of Systems: Comprehensive ROS is negative, except as noted in HPI. ED EXAM, GENERAL - Physical Exam Exam: See Below (see dictation) Course - Vital Signs Last Recorded V/S: Last Vital Signs Temp 96.2 F 03/19/19 10:42 Pulse 87 03/19/19 12:23 Resp 18 03/19/19 12:23 BP 123/76 03/19/19 12:23 Pulse Ox 99 03/19/19 12:23 - Orders/Labs/Meds Orders: Active Orders 24 hr Category Date Time Status EKG Documentation Completion [RC] STAT Care 03/19/19 10:41 Active Labs: Laboratory Tests 03/19/19 03/19/19 03/19/19 Range/Units 10:54 10:54 11:51 WBC 7.96 (4.0-11.0) K/uL RBC 4.88 (4.30-5.90) M/uL Hgb 13.9 (12.0-16.0) g/dL Hct 41.0 (36.0-46.0) % MCV 84.0 (80.0-98.0) fL MCH 28.5 (27.0-32.0) pg MCHC 33.9 (31.0-37.0) g/dL RDW Std Deviation 44.3 (28.0-62.0) fl RDW Coeff of Concetta 14 (11.0-15.0) % Plt Count 209 (150-400) K/uL MPV 10.50 (7.40-12.00) fL Neut % (Auto) 62.3 (48.0-80.0) % Lymph % (Auto) 25.5 (16.0-40.0) % [place] % (Auto) 7.3 (0.0-15.0) % Eos % (Auto) 4.1 (0.0-7.0) % Baso % (Auto) 0.8 (0.0-1.5) % Neut # (Auto) 5.0 (1.4-5.7) K/uL Lymph # (Auto) 2.0 (0.6-2.4) K/uL [place] # (Auto) 0.6 (0.0-0.8) K/uL Eos # (Auto) 0.3 (0.0-0.7) K/uL Baso # (Auto) 0.1 (0.0-0.1) K/uL Nucleated RBC % 0.0 /100WBC Nucleated RBCs # 0 K/uL Sodium 141 (136-145) mmol/L Potassium 3.1 L (3.5-5.1) mmol/L Chloride 100 (98-107) mmol/L Carbon Dioxide 29.3 (21.0-32.0) mmol/L BUN 10 (7.0-18.0) mg/dL Creatinine 0.8 (0.6-1.0) mg/dL Est Cr Clr Drug Dosing 68.76 mL/min Estimated GFR (MDRD) > 60.0 ml/min Glucose 103 (74-106) mg/dL Calcium 9.1 (8.5-10.1) mg/dL Total Bilirubin 0.6 (0.2-1.0) mg/dL AST 14 L (15-37) IU/L ALT 25 (14-63) IU/L Alkaline Phosphatase 87 (46-116) U/L Troponin I < 0.050 (0.000-0.056) ng/mL Total Protein 8.3 H (6.4-8.2) g/dL Albumin 4.2 (3.4-5.0) g/dL Globulin 4.1 H (2.6-4.0) g/dL Albumin/Globulin Ratio 1.0 (0.9-1.6) Lipase 252 (73-393) U/L Urine Color YELLOW Urine Appearance CLEAR Urine pH 6.5 (5.0-8.0) Ur Specific [place] 1.010 (1.001-1.035) Urine Protein NEGATIVE (NEGATIVE) mg/dL Urine Glucose (UA) NEGATIVE (NEGATIVE) mg/dL Urine Ketones NEGATIVE (NEGATIVE) mg/dL Urine Occult Blood NEGATIVE (NEGATIVE) Urine Nitrite NEGATIVE (NEGATIVE) Urine Bilirubin NEGATIVE (NEGATIVE) Urine Urobilinogen 0.2 (<2.0) EU/dL Ur Leukocyte Esterase NEGATIVE (NEGATIVE) Departure - Departure Time of Disposition: 12:38 Disposition: Home, Self-Care 01 Clinical Impression: History of chest pain - Discharge Information Referrals: PCP,Unobtain [Primary Care Provider] - Additional Instructions: The following information is given to patients seen in the emergency department who are being discharged to home. This information is to outline your options for follow-up care. We provide all patients seen in our emergency department with a follow-up referral. The need for follow-up, as well as the timing and circumstances, are variable depending upon the specifics of your emergency department visit. If you don't have a primary care physician on staff, we will provide you with a referral. We always advise you to contact your personal physician following an emergency department visit to inform them of the circumstance of the visit and for follow-up with them and/or the need for any referrals to a consulting specialist. The emergency department will also refer you to a specialist when appropriate. This referral assures that you have the opportunity for follow-up care with a specialist. All of these measure are taken in an effort to provide you with optimal care, which includes your follow-up. Under all circumstances we always encourage you to contact your private physician who remains a resource for coordinating your care. When calling for follow-up care, please make the office aware that this follow-up is from your recent emergency room visit. If for any reason you are refused follow-up, please contact the [facility] Emergency Department at and asked to speak to the emergency department charge nurse. [facility] [address] [place], [place] [id number] [place] [address] 1. You can alternate ibuprofen and Tylenol as directed for pain and discomfort. 2. Follow-up with a primary care provider as discussed. Return to the ED as needed and as discussed. Sepsis Event Note - Evaluation Sepsis Screening Result: No Definite Risk - Focused Exam Vital Signs: Vital Signs Temp Pulse Resp BP Pulse Ox 03/19/19 12:23 87 18 123/76 99 03/19/19 10:42 96.2 F 95 16 115/83 98 Date Exam was Performed: 03/19/19 Time Exam was Performed: 12:38 - My Orders Last 24 Hours: My Active Orders 03/19/19 10:41 EKG Documentation Completion [RC] STAT - Assessment/Plan Last 24 Hours: My Active Orders 03/19/19 10:41 EKG Documentation Completion [RC] STAT
--- NOTE | 2019-03-19 11:29 | CR ---
Chest: Portable view of the chest was obtained. Comparison: No prior chest imaging. Heart size and mediastinum are normal. Lungs are clear with no acute parenchymal change. Bony structures are grossly intact. Surgical clips are noted from prior cholecystectomy. Impression: 1. Nothing acute is appreciated on portable chest x-ray. Diagnostic code #1 This report was dictated in [place] Standard Time
[2019-03-19 11:30] LABS: BLOOD UREA NITROGEN,BUN 10 mg/dL (7.0-18.0); CARBON DIOXIDE,CO2 29.3 mmol/L (21.0-32.0); CHLORIDE,CL 100 mmol/L (98-107); GLUCOSE RANDOM 103 mg/dL (74-106); LIPASE 252 U/L (73-393); POTASSIUM,K 3.1 mmol/L (3.5-5.1); SODIUM,NA 141 mmol/L (136-145)
[2019-03-19 12:52] VITALS: BP 110/76; PULSE 88
== END 2019-03-19 12:53 | disposition home or self-care (01) ==
LOC: MW.ED 10:29
DX: R07.9 Chest pain, unspecified (principal); Z79.899 Other long term (current) drug therapy
CPT/HCPCS: 36415; 71045; 71045-26; 80053; 81003; 83690; 84484; 85025; 93005; 99283; 99285-25